=== PATIENT | female | born 1935 | race Caucasian/White ===

== ENCOUNTER → 2018-03-27 11:00 | Outpatient (CLI) | payer MEDICARE, BC, SELFPAY | PROVIDERS: PCP Family Medicine; Visit Provider Orthopaedic Surgery | DX: M19.012 Primary osteoarthritis, left shoulder (principal); M25.512 Pain in left shoulder; M75.02 Adhesive capsulitis of left shoulder | CPT/HCPCS: 20610; 99214; J1040 ==

== ENCOUNTER 2018-05-13 09:26 | Day surgery (SDC) | payer MEDICARE, BC, SELFPAY ==
--- NOTE | 2018-05-10 12:30 | W.PIPPEYE ---
History of Present Illness Chief Complaint: Severe progressive decreased vision, right eye Narrative: Patient is an 83-year-old lady who presented with complaints of severely diminished visual acuity in both eyes over the past 4-5 months at both distance and near. She notes that I can't see nothing. On examination she was noted to have very dense 3-4+ yellow brunescent nuclear cataracts with 1-2+ pseudoexfoliation and poorly dilating pupils. Visual acuity measured best corrected 20/100 right eye, 20/80 left eye. The option of cataract surgery was offered to the patient and she wished to proceed. PENDING SALE TO [facility] Family History Mother Myocardial infarct COPD (chronic obstructive pulmonary disease) Alcohol abuse Father Myocardial infarct Smoker Alcohol abuse Sister Diabetes Osteoporosis Arthritis Myocardial infarct Sister Myocardial infarct Brother Alcohol abuse Lung cancer Brother Myocardial infarct Other Hyperlipidemia Social History adopted: No foster care: No housing: house lives independently: Yes number of children: 6 current occupational status: retired pets and animals: No other: support from [address] [place] [address] over hernandez, Son Raul [place]en[place] Smoking/Tobacco Use Status: Never alcohol intake: former year quit: 1986 substance use type: does not use seatbelt use: 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 water heater temp set < 120 deg: Yes working smoke detector in home: Yes fire extinguisher in home: Yes Surgical History H/O breast biopsy (Acute ~09/25/03) H/O foot surgery (Acute) H/O left breast biopsy (Acute) H/O colonoscopy (Chronic ~08/21/00) H/O: hysterectomy (Chronic ~08/26/70) Appendectomy (~1952) Open Carpal Tunnel release (08/27/79) Pacemaker (08/10/98) Meds Home Medications Medication Instructions Recorded Confirmed Type cyanocobalamin (vitamin B-12) 1,000 mcg IJ Q month #1 vial 11/19/12 05/08/18 History aspirin 81 mg PO DAILY 04/01/13 05/08/18 History loperamide 2 mg PO DIRECTED PRN 04/01/13 05/08/18 History nedwtrhu-ykd-FA-lycopen-lutein 1 ea PO DAILY tab 07/07/14 05/08/18 History [Centrum Silver] cholecalciferol (vitamin D3) 1,000 unit PO DAILY #100 tab-cap 03/22/15 History [Vitamin D3] calcium carbonate [Calcium 500] 1,000 mg PO DAILY #180 tab 05/23/15 History Allergies Allergy/AdvReac Type Severity Reaction Status Date / Time phenytoin Allergy Unknown Skin Rash Verified 05/06/18 13:17 ibuprofen AdvReac Intermediate vomiting Verified 05/06/18 13:17 Exam OCULAR EXAM:: Visual acuity at distance: Best corrected right eye 20/100, left eye 20/80 Pupils: Pupils equal, round, and reactive without afferent pupillary defect, 3 mm undilated IOP: 16 right eye, 15 left eye Extraocular Motility: Normal Pertinent Slit Lamp Findings: Significant for pupils dilating only to 4 mm in each eye. 1-2+ pseudoexfoliation material is present on both anterior lens capsules. 3-4+ brunescent nuclear cataract is present in both eyes. Dilated Funduscopic Examination: Disc cupping is 0.6 OU with good color. The optic nerves have good perfusion and normal color. The retinal vasculature is normal without significant tortuosity or abnormality. The maculas are normal in appearance with normal contour and foveal reflex appropriate for age. The peripheral retina and vitreous are normal. Of note, the view of the posterior pole is limited by the presence of dense cataracts. BRIGHTNESS ACUITY TESTING (BAT):: Off: Right eye 20/100 Low: 20/200 Medium: 20/200 High: 20/200 Assessment and Plan (1) Nuclear sclerotic cataract of right eye: Current visit: No Status: Acute Assessment: Visually significant cataract, right eye, dense, with poorly dilating pupils due to pseudoexfoliation Plan: Cataract extraction with intraocular lens implantation, right eye (2) Mature cataract: Current visit: No Status: Acute Assessment: Visually significant cataract, right eye with poorly dilating pupils due to pseudoexfoliation Plan: Cataract extraction with intraocular lens implantation, right eye (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 The plan is to use capsular staining techniques (Vision Blue), a pupil expansion device (Malyugin Ring), dispersive and cohesive viscoelastics, and possibly nucleus splitters to reduce zonular trauma during nuclear fragmentation. Consideration will also be give to using a 3-piece IOL for added capsulozonular support. Note: NOTE:: The details of the planned surgery, including the risks, indications,limitations,expectations,outcome and possible complications were explained to the patient. The patient understands the complications including, but not limited to: infection, hemorrhage, posterior dislocation of the lens or nuclear fragments which may require the intervention of a vitreoretinal surgeon, possible loss of the eye, or from anesthetic complications. The patient has been made aware of the option of not having surgery, that vision following surgery may not be equal to that prior to surgery, and that the planned surgery may not achieve the intended results. Following this discussion, which the patient appeared to understand, the patient wishes to proceed with cataract surgery with lens implantation of the affected eye to improve and maximize vision.
--- NOTE | 2018-05-10 12:34 | POEE_ITS ---
History of Present Illness Chief Complaint: Severe progressive decreased vision, right eye Narrative: Patient is an 83-year-old lady who presented with complaints of severely diminished visual acuity in both eyes over the past 4-5 months at both distance and near. She notes that I can't see nothing. On examination she was noted to have very dense 3-4+ yellow brunescent nuclear cataracts with 1-2+ pseudoexfoliation and poorly dilating pupils. Visual acuity measured best corrected 20/100 right eye, 20/80 left eye. The option of cataract surgery was offered to the patient and she wished to proceed. [facility] Family History Mother Myocardial infarct COPD (chronic obstructive pulmonary disease) Alcohol abuse Father Myocardial infarct Smoker Alcohol abuse Sister Diabetes Osteoporosis Arthritis Myocardial infarct Sister Myocardial infarct Brother Alcohol abuse Lung cancer Brother Myocardial infarct Other Hyperlipidemia Social History adopted: No foster care: No housing: house lives independently: Yes number of children: 6 current occupational status: retired pets and animals: No other: support from [address] [place] [address] over hernandez, Son Raul [place] Smoking/Tobacco Use Status: Never alcohol intake: former year quit: 1986 substance use type: does not use seatbelt use: always drive 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 water heater temp set < 120 deg: Yes working smoke detector in home: Yes fire extinguisher in home: Yes Surgical History H/O breast biopsy (Acute ~09/25/03) H/O foot surgery (Acute) H/O left breast biopsy (Acute) H/O colonoscopy (Chronic ~08/21/00) H/O: hysterectomy (Chronic ~08/26/70) Appendectomy (~1952) Open Carpal Tunnel release (08/27/79) Pacemaker (08/10/98) Meds Home Medications Medication Instructions Recorded Confirmed Type cyanocobalamin (vitamin B-12) 1,000 mcg IJ Q month #1 vial 11/19/12 05/08/18 History aspirin 81 mg PO DAILY 04/01/13 05/08/18 History loperamide 2 mg PO DIRECTED PRN 04/01/13 05/08/18 History cfsccmvo-fwq-PM-lycopen-lutein 1 ea PO DAILY tab 07/07/14 05/08/18 History [Centrum Silver] cholecalciferol (vitamin D3) 1,000 unit PO DAILY #100 tab-cap 03/22/15 History [Vitamin D3] calcium carbonate [Calcium 500] 1,000 mg PO DAILY #180 tab 05/23/15 History Allergies Allergy/AdvReac Type Severity Reaction Status Date / Time phenytoin Allergy Unknown Skin Rash Verified 05/06/18 13:17 ibuprofen AdvReac Intermediate vomiting Verified 05/06/18 13:17 Exam OCULAR EXAM:: Visual acuity at distance: Best corrected right eye 20/100, left eye 20/80 Pupils: Pupils equal, round, and reactive without afferent pupillary defect, 3 mm undilated IOP: 16 right eye, 15 left eye Extraocular Motility: Normal Pertinent Slit Lamp Findings: Significant for pupils dilating only to 4 mm in each eye. 1-2+ pseudoexfoliation material is present on both anterior lens capsules. 3-4+ brunescent nuclear cataract is present in both eyes. Dilated Funduscopic Examination: Disc cupping is 0.6 OU with good color. The optic nerves have good perfusion and normal color. The retinal vasculature is normal without significant tortuosity or abnormality. The maculas are normal in appearance with normal contour and foveal reflex appropriate for age. The peripheral retina and vitreous are normal. Of note, the view of the posterior pole is limited by the presence of dense cataracts. BRIGHTNESS ACUITY TESTING (BAT):: Off: Right eye 20/100 Low: 20/200 Medium: 20/200 High: 20/200 Assessment and Plan (1) Nuclear sclerotic cataract of right eye: Current visit: No Status: Acute Assessment: Visually significant cataract, right eye, dense, with poorly dilating pupils due to pseudoexfoliation Plan: Cataract extraction with intraocular lens implantation, right eye (2) Mature cataract: Current visit: No Status: Acute Assessment: Visually significant cataract, right eye with poorly dilating pupils due to pseudoexfoliation Plan: Cataract extraction with intraocular lens implantation, right eye (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 The plan is to use capsular staining techniques (Vision Blue), a pupil expansion device (Malyugin Ring), dispersive and cohesive viscoelastics, and possibly nucleus splitters to reduce zonular trauma during nuclear fragmentation. Consideration will also be give to using a 3-piece IOL for added capsulozonular support. Note: NOTE:: The details of the planned surgery, including the risks, indications, limitations,expectations,outcome and possible complications were explained to the patient. The patient understands the complications including, but not limited to: infection, hemorrhage, posterior dislocation of the lens or nuclear fragments which may require the intervention of a vitreoretinal surgeon, possible loss of the eye, or from anesthetic complications. The patient has been made aware of the option of not having surgery, that vision following surgery may not be equal to that prior to surgery, and that the planned surgery may not achieve the intended results. Following this discussion, which the patient appeared to understand, the patient wishes to proceed with cataract surgery with lens implantation of the affected eye to improve and maximize vision.
[2018-05-13 10:13] VITALS: BP 138/90; PULSE 80; RESP 16; TEMP 37.4; O2SAT 99
[2018-05-13] MEDS: Lidocaine 1% Pres-Free 5 ML VIAL (11:45)
[2018-05-13] MEDS: Balanced Salt Soln.-PLUS 500 ML BAG (11:45)
[2018-05-13] MEDS: Lidocaine 2% Jelly 6 ML SYR (11:45)
[2018-05-13] MEDS: Duovisc Viscoelastic System EACH 1 EACH (11:45)
[2018-05-13] MEDS: Povidone-Iodine Ophth 30 ML BTL (11:51)
[2018-05-13] MEDS: Trypan Blue 0.06% 0.5 ML SYR (11:52)
--- NOTE | 2018-05-13 12:29 | W.PM.DSUDISC ---
Discharge Plan Discharge Details Reason For Visit: CATARACT OD Attending Provider: Vadim Dominguez Primary Care Provider: Brandon Siddiqui Home Meds and New Rx's Prescriptions: No Action amlodipine 10 mg tablet 10 mg PO DAILY Qty: 90 RF: 3 cyanocobalamin (vitamin B-12) 1,000 MCG/1 ML solution 1,000 mcg IJ Q month Qty: 1 RF: 0 jdsvjbxr-gvn-GU-lycopen-lutein [Centrum Silver] 1 EACH tablet 1 ea PO DAILY RF: 0 cholecalciferol (vitamin D3) [Vitamin D3] 1,000 UNIT capsule 1,000 unit PO DAILY Qty: 100 RF: 6 calcium carbonate [Calcium 500] 500 MG tablet 1,000 mg PO DAILY Qty: 180 RF: 3 levothyroxine [Synthroid] 300 MCG tablet 300 mcg PO DAILY 90 Days Qty: 90 RF: 3 celecoxib 100 MG capsule 100 mg PO DAILY Qty: 30 RF: 3 quetiapine [Seroquel] 25 MG tablet 25 mg PO HS Qty: 30 RF: 6 atenolol 100 MG tablet 100 mg PO BID Qty: 60 RF: 11 hydrochlorothiazide 25 MG tablet 25 mg PO DAILY Qty: 30 RF: 11 aspirin 81 MG tablet,delayed release (DR/EC) 81 mg PO DAILY RF: 0 loperamide 2 MG capsule 2 mg PO DIRECTED PRNRF: 0 Discharge Instructions Stand Alone Forms: Post-op Topical Cataract, Otf Staples (DSU) DS: Diagnosis Discharge Diagnosis (1) Nuclear sclerotic cataract of right eye: Status: Resolved (2) Mature cataract: Status: Resolved (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
--- NOTE | 2018-05-13 12:31 | W.PM.OP ---
Date of service: 05/13/18 Time of Service: 12:31 Operative Note Date of procedure: 05/13/18 Pre-op diagnosis: Mature cataract, poor red reflex, small pupil, PXF, right eye Procedure: Cataract extraction using phacoemulsification with intraocular lens implantation, right eye, using capsular staining with Vision Blue and pupillary dilation with Malyugin Ring Surgeon: Vadim Dominguez Anesthesia: MAC (with local sub-tenon's anesthetic injection) Pathology: none sent Complications: None Patient was transported to: same day Patient's condition: stable Implants: [employer] / [employer] Tecnis [id number] Indications: Progressive visual loss due to advanced cataract, right eye, with pseudoexfoliation, poorly dilating pupil, and poor red reflex Findings: Moderate zonular laxity Procedure Description: CATARACT SURGERY OPERATIVE REPORT PREOPERATIVE DIAGNOSIS: 1. Dense nuclear cataract with pseudoexfoliation, right eye 2. Poor red reflex secondary to #1 3. Poorly dilating pupil POSTOPERATIVE DIAGNOSIS: Same OPERATION: Cataract extraction using phacoemulsification with posterior chamber intraocular lens implant, right eye. Capsular staining with Vision Blue Pupillary dilation with Malyugin Ring IOL: IOL Culture Manager/Model: [employer] / FREYA Tecnis [id number] IOL Power: +25.00 diopters IOL Serial Number: [id number] Optic Diameter: 6.0mm Haptic/Overall Diameter: 13.0mm PHACO INFO: Last Bellabeaturion Vision System with OZil and Active Fluidics Cumulative Dispersed Energy (CDE): 21.47 seconds SURGEON: Vadim Dominguez MD, GONZALO ANESTHESIA: Monitored Anesthesia Care (MAC), with local sub-tenon's anesthetic infiltration COMPLICATIONS: None SPECIMENS: None INDICATIONS FOR PROCEDURE: The patient is an 83-year-old lady with history of pseudoexfoliation who presented with complaints of diminished visual acuity in both eyes at both distance and near. She was noted to have a dense nuclear cataract in both eyes with pseudoexfoliation and poorly dilating pupil. Visual acuity measured 20/200 right eye. The option of cataract surgery was offered to the patient and she wished to proceed. PROCEDURE: The correct surgical eye was identified and marked as the right eye and the pupil was dilated in the preoperative area using mydriatics, cycloplegics, and NSAIDS (except in aspirin allergic patients). The dilated pupil size was 4.0mm. Oral sedation was administered in the form of an Imprimis MKO Melt (midazolam 3mg/ketamine 25mg/ondansetron 2mg). The patient was brought to the operating room where cardiopulmonary monitoring was instituted and surgical time-out was performed, confirming the correct operative eye and IOL power. Topical anesthesia was administered and ophthalmic povidone-iodine 5% was instilled into the conjunctival fornices. Lidocaine gel was applied to the cornea and the amber-ocular area was prepped with Betadine 10% solution and draped in the usual sterile fashion for intraocular surgery. Steri-strips were used to cover the lashes and lid margins and an adhesive eye drape was placed. Care was taken to isolate the lashes and lid margins under the Steri-strips and adhesive eye drape. A lid speculum was placed between the lids of the operative eye and the Enrike-Cristino operating microscope was maneuvered into position. Jose Angel scissors were then used to make a conjunctival buttonhole approximately 6mm posterior to the limbus in the inferonasal quadrant. Blunt dissection was carried out to expose bare sclera, and a blunt-tipped sub-tenon?s anesthesia cannula was introduced and passed posteriorly along the globe where non-preserved plain lidocaine was injected into posterior sub-Tenon?s space. A sideport knife was used to make a paracentesis port at the 7:00 position. Air was injected into the anterior chamber, followed by Vision Blue, which was painted over the anterior capsule and then irrigated out with BSS. The anterior chamber was filled with Viscoat. A 2.4mm keratome knife was used to create a half-thickness groove at the limbus and then to construct a three-plane near-clear corneal tunnel extending 2.0mm into clear cornea at the 10:00 position. A 6.25 mm Malyugin Ring was inserted into the eye and engaged using a Kuglen hook. A flap was raised on the anterior capsule and capsulorhexis forceps were used to complete a continuous curvilinear capsulorhexis of 5.5mm. The capsule was noted to be very thin with moderate zonular laxity and capsular wrinkling. Balanced salt solution was then used to perform extensive, but careful cortical cleaving hydrodissection and nuclear hydrodelineation until the lens could be freely rotated within the capsular bag. The lens nucleus was then disassembled and removed within the capsular bag and iris plane using phacoemulsification. Additional Viscoat was injected intermittently to protect the corneal endothelium. Residual cortical material was then carefully removed using the 45-degree angled silicone I/A tip with 0.3mm port. The posterior capsule was carefully polished to remove as much residual lens epithelial cells as safely possible. There was some residual fine cortical material in the subincisional area which could not be safely removed. The capsular bag was then inflated and the anterior chamber deepened with Provisc. The lens implant described above was inserted into the capsular bag using the OptoNova Mor[place] Injector. A Kuglen hook was used to dial the IOL into position. The Malyugin Ring was then removed in the reverse order of its insertion. Residual viscoelastic was then removed first from posterior to the IOL, then from the anterior chamber using the I/A handpiece. The lens implant was noted to center nicely within the capsular bag. The incisions were stromally hydrated, and the anterior chamber was reformed using BSS. Then 0.4cc of moxifloxacin 1.5mg/ml were injected into the capsular bag and anterior chamber. The incisions were checked with a Weck spear and found to be secure. Several drops of ophthalmic povidone-iodine 5% were then applied to the eye followed by two drops of Imprimis combination moxifloxacin/dexamethasone solution. The drapes were removed and a clear plastic protective eye shield was placed over the eye. The patient was then returned to Same Day Surgery in stable condition.
--- NOTE | 2018-05-13 12:36 | ROE_ITS ---
Date of service: 05/13/18 Time of Service: 12:31 Operative Note Date of procedure: 05/13/18 Pre-op diagnosis: Mature cataract, poor red reflex, small pupil, PXF, right eye Procedure: Cataract extraction using phacoemulsification with intraocular lens implantation, right eye, using capsular staining with Vision Blue and pupillary dilation with Malyugin Ring Surgeon: Vadim Dominguez Anesthesia: MAC (with local sub-tenon's anesthetic injection) Pathology: none sent Complications: None Patient was transported to: same day Patient's condition: stable Implants: [employer] / [employer] Tecnis [id number] Indications: Progressive visual loss due to advanced cataract, right eye, with pseudoexfoliation, poorly dilating pupil, and poor red reflex Findings: Moderate zonular laxity Procedure Description: CATARACT SURGERY OPERATIVE REPORT PREOPERATIVE DIAGNOSIS: 1. Dense nuclear cataract with pseudoexfoliation, right eye 2. Poor red reflex secondary to #1 3. Poorly dilating pupil POSTOPERATIVE DIAGNOSIS: Same OPERATION: Cataract extraction using phacoemulsification with posterior chamber intraocular lens implant, right eye. 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 She was noted to have a dense nuclear cataract in both eyes with pseudoexfoliation and poorly dilating pupil. Visual acuity measured 20/200 right eye. The option of cataract surgery was offered to the patient and she wished to proceed. PROCEDURE: The correct surgical eye was identified and marked as the right eye and the pupil was dilated in the preoperative area using mydriatics, cycloplegics, and NSAIDS (except in aspirin allergic patients). The dilated pupil size was 4.0mm. Oral sedation was administered in the form of an Imprimis MKO Melt (midazolam 3mg/ketamine 25mg/ondansetron 2mg). The patient was brought to the operating room where cardiopulmonary monitoring was instituted and surgical time-out was performed, confirming the correct operative eye and IOL power. Topical anesthesia was administered and ophthalmic povidone-iodine 5% was instilled into the conjunctival fornices. Lidocaine gel was applied to the cornea and the amber-ocular area was prepped with Betadine 10% solution and draped in the usual sterile fashion for intraocular surgery. Steri-strips were used to cover the lashes and lid margins and an adhesive eye drape was placed. Care was taken to isolate the lashes and lid margins under the Steri-strips and adhesive eye drape. A lid speculum was placed between the lids of the operative eye and the Enrike-Cristino operating microscope was maneuvered into position. Jose Angel scissors were then used to make a conjunctival buttonhole approximately 6mm posterior to the limbus in the inferonasal quadrant. Blunt dissection was carried out to expose bare sclera, and a blunt-tipped sub-tenon? s anesthesia cannula was introduced and passed posteriorly along the globe where non-preserved plain lidocaine was injected into posterior sub-Tenon?s space. A sideport knife was used to make a paracentesis port at the 7:00 position. Air was injected into the anterior chamber, followed by Vision Blue, which was painted over the anterior capsule and then irrigated out with BSS. The anterior chamber was filled with Viscoat. A 2.4mm keratome knife was used to create a half-thickness groove at the limbus and then to construct a three- plane near-clear corneal tunnel extending 2.0mm into clear cornea at the 10:00 position. A 6.25 mm Malyugin Ring was inserted into the eye and engaged using a Kuglen hook. A flap was raised on the anterior capsule and capsulorhexis forceps were used to complete a continuous curvilinear capsulorhexis of 5.5mm. The capsule was noted to be very thin with moderate zonular laxity and capsular wrinkling. Balanced salt solution was then used to perform extensive, but careful cortical cleaving hydrodissection and nuclear hydrodelineation until the lens could be freely rotated within the capsular bag. The lens nucleus was then disassembled and removed within the capsular bag and iris plane using phacoemulsification. Additional Viscoat was injected intermittently to protect the corneal endothelium. Residual cortical material was then carefully removed using the 45 -degree angled silicone I/A tip with 0.3mm port. The posterior capsule was carefully polished to remove as much residual lens epithelial cells as safely possible. There was some residual fine cortical material in the subincisional area which could not be safely removed. The capsular bag was then inflated and the anterior chamber deepened with Provisc. The lens implant described above was inserted into the capsular bag using the [employer] [place] Injector. A Kuglen hook was used to dial the IOL into position. The Malyugin Ring was then removed in the reverse order of its insertion. Residual viscoelastic was then removed first from posterior to the IOL, then from the anterior chamber using the I/A handpiece. The lens implant was noted to center nicely within the capsular bag. The incisions were stromally hydrated , and the anterior chamber was reformed using BSS. Then 0.4cc of moxifloxacin 1.5mg/ml were injected into the capsular bag and anterior chamber. The incisions were checked with a Weck spear and found to be secure. Several drops of ophthalmic povidone-iodine 5% were then applied to the eye followed by two drops of Imprimis combination moxifloxacin/dexamethasone solution. The drapes were removed and a clear plastic protective eye shield was placed over the eye. The patient was then returned to Same Day Surgery in stable condition.
[2018-05-13 13:00] VITALS: BP 119/57; PULSE 67; RESP 18; TEMP 36; O2SAT 94
== END 2018-05-13 13:09 | disposition home or self-care (01) ==
LOC: SUR 09:27
PROVIDERS: PCP Family Medicine; Visit Provider Ophthalmology
PROC: (CPT 66982; principal; 2018-05-13 12:30)
DX: H25.11 Age-related nuclear cataract, right eye (principal); H35.89 Other specified retinal disorders; H57.09 Other anomalies of pupillary function; H26.8 Other specified cataract; I10 Essential (primary) hypertension
CPT/HCPCS: 66982; V2632

== ENCOUNTER 2018-05-27 09:34 | Day surgery (SDC) | payer MEDICARE, BC, SELFPAY ==
--- NOTE | 2018-05-25 10:20 | W.PIPPEYE ---
History of Present Illness Chief Complaint: Progressive decreased vision, left eye Narrative: Patient is an 83-year-old lady who presented in February with complaints of progressive decreased vision in both eyes at both distance and near. She noted that she can't see nothing. She was noted to have dense bilateral nuclear cataracts with pseudoexfoliation and poorly dilating pupils with visual acuity of 20/200 right eye, 20/100 left eye. She underwent complex cataract surgery in the right eye on 05/13/2018, requiring the use of pupillary expansion device, capsular staining techniques, and dispersive viscoelastic for corneal protection. Postoperatively she has regained uncorrected visual acuity of 20/50 in the right eye, correctable to 20/30. She now presents for cataract surgery in the left eye. NOTE: The Chief Complaint, HPI, Past Medical History, Past Surgical History, Family History, Social History, Medications, and complete Ophthalmic Exam with detailed Assessment and Plan have already been documented in the patient's outpatient ophthalmic record and are not covered again in detail here. Meds Home Medications Medication Instructions Recorded Confirmed Type cyanocobalamin (vitamin B-12) 1,000 mcg IJ Q month #1 vial 11/19/12 05/13/18 History aspirin 81 mg PO DAILY 04/01/13 05/13/18 History loperamide 2 mg PO DIRECTED PRN 04/01/13 05/13/18 History mubefeqt-ejj-JO-lycopen-lutein 1 ea PO DAILY tab 07/07/14 05/13/18 History [Centrum Silver] cholecalciferol (vitamin D3) 1,000 unit PO DAILY #100 tab-cap 03/22/15 05/13/18 History [Vitamin D3] calcium carbonate [Calcium 500] 1,000 mg PO DAILY #180 tab 05/23/15 05/13/18 History celecoxib 100 mg PO DAILY #30 cap 10/22/17 05/13/18 Rx levothyroxine [Synthroid] 300 mcg PO DAILY 90 Days #90 10/22/17 05/13/18 Rx tab-cap quetiapine [Seroquel] 25 mg PO HS #30 tab 04/04/18 05/13/18 Rx atenolol 100 mg PO BID #60 tab-cap 04/09/18 05/13/18 Rx hydrochlorothiazide 25 mg PO DAILY #30 tab-cap 04/09/18 05/13/18 Rx amlodipine 10 mg tablet 10 mg PO DAILY #90 tab 05/06/18 05/13/18 Rx Allergies Allergy/AdvReac Type Severity Reaction Status Date / Time phenytoin Allergy Unknown Skin Rash Verified 05/13/18 09:52 ibuprofen AdvReac Intermediate vomiting Verified 05/13/18 09:52 Exam OCULAR EXAM:: Visual acuity at distance: Corrected to 20/30 right eye, 20/80 left eye. Pupils: Pupils are 3 mm, reactive, and equal with no afferent pupillary defect. IOP: 16 OD 15 OS Extraocular Motility: Normal Pertinent Slit Lamp Findings: Significant for pupils dilating only to 4 mm OU. Well-positioned PCIOL OD with clear posterior capsule. Left eye shows a dense 3-4+ yellow brunescent cataract with 1-2+ pseudoexfoliation on the lens capsule. The red reflex is poor. Dilated Funduscopic Examination: Disc cupping is 0.6 OU with good color. The optic nerves have good perfusion and normal color. The retinal vasculature is normal without significant tortuosity or abnormality. The maculas are normal in appearance with normal contour and foveal reflex appropriate for age. The peripheral retina and vitreous are normal. BRIGHTNESS ACUITY TESTING (BAT):: Off left eye 20/80 Low: 20/200 Medium: 20/200 High: 20/400 Assessment and Plan (1) Nuclear sclerotic cataract of left eye: Current visit: No Status: Acute Assessment: Visually significant cataract, left eye. Plan: Cataract extraction with intraocular lens implantation, left eye. The increased difficulty of cataract surgery and the increased risk of possible intra and post-operative complications in patients with pseudoexfoliation syndrome was discussed with the patient, especially with an advanced cataract such as this. The plan is to use capsular staining techniques (Vision Blue), a pupil expansion device (Malyugin Ring), dispersive and cohesive viscoelastics, and possibly nucleus splitters to reduce zonular trauma during nuclear fragmentation. Consideration will also be give to using a 3-piece IOL for added capsulozonular support. (2) Mature cataract: Current visit: No Status: Acute Assessment: Visually significant cataract, left eye. Plan: Cataract extraction with intraocular lens implantation, left eye The increased difficulty of cataract surgery and the increased risk of possible intra and post-operative complications in patients with pseudoexfoliation syndrome was discussed with the patient, especially with an advanced cataract such as this. The plan is to use capsular staining techniques (Vision Blue), a pupil expansion device (Malyugin Ring), dispersive and cohesive viscoelastics, and possibly nucleus splitters to reduce zonular trauma during nuclear fragmentation. Consideration will also be give to using a 3-piece IOL for added capsulozonular support. Note: NOTE:: The details of the planned surgery, including the risks, indications,limitations,expectations,outcome and possible complications were explained to the patient. The patient understands the complications including, but not limited to: infection, hemorrhage, posterior dislocation of the lens or nuclear fragments which may require the intervention of a vitreoretinal surgeon, possible loss of the eye, or from anesthetic complications. The patient has been made aware of the option of not having surgery, that vision following surgery may not be equal to that prior to surgery, and that the planned surgery may not achieve the intended results. Following this discussion, which the patient appeared to understand, the patient wishes to proceed with cataract surgery with lens implantation of the affected eye to improve and maximize vision.
--- NOTE | 2018-05-25 10:29 | POEE_ITS ---
History of Present Illness Chief Complaint: Progressive decreased vision, left eye Narrative: Patient is an 83-year-old lady who presented in February with complaints of progressive decreased vision in both eyes at both distance and near. She noted that she can't see nothing. She was noted to have dense bilateral nuclear cataracts with pseudoexfoliation and poorly dilating pupils with visual acuity of 20/200 right eye, 20/100 left eye. She underwent complex cataract surgery in the right eye on 05/13/2018, requiring the use of pupillary expansion device, capsular staining techniques, and dispersive viscoelastic for corneal protection. Postoperatively she has regained uncorrected visual acuity of 20/ 50 in the right eye, correctable to 20/30. She now presents for cataract surgery in the left eye. NOTE: The Chief Complaint, HPI, Past Medical History, Past Surgical History, Family History, Social History, Medications, and complete Ophthalmic Exam with detailed Assessment and Plan have already been documented in the patient's outpatient ophthalmic record and are not covered again in detail here. Meds Home Medications Medication Instructions Recorded Confirmed Type cyanocobalamin (vitamin B-12) 1,000 mcg IJ Q month #1 vial 11/19/12 05/13/18 History aspirin 81 mg PO DAILY 04/01/13 05/13/18 History loperamide 2 mg PO DIRECTED PRN 04/01/13 05/13/18 History idttunet-skl-OZ-lycopen-lutein 1 ea PO DAILY tab 07/07/14 05/13/18 History [Centrum Silver] cholecalciferol (vitamin D3) 1,000 unit PO DAILY #100 tab-cap 03/22/15 05/13/18 History [Vitamin D3] calcium carbonate [Calcium 500] 1,000 mg PO DAILY #180 tab 05/23/15 05/13/18 History celecoxib 100 mg PO DAILY #30 cap 10/22/17 05/13/18 Rx levothyroxine [Synthroid] 300 mcg PO DAILY 90 Days #90 10/22/17 05/13/18 Rx tab-cap quetiapine [Seroquel] 25 mg PO HS #30 tab 04/04/18 05/13/18 Rx atenolol 100 mg PO BID #60 tab-cap 04/09/18 05/13/18 Rx hydrochlorothiazide 25 mg PO DAILY #30 tab-cap 04/09/18 05/13/18 Rx amlodipine 10 mg tablet 10 mg PO DAILY #90 tab 05/06/18 05/13/18 Rx Allergies Allergy/AdvReac Type Severity Reaction Status Date / Time phenytoin Allergy Unknown Skin Rash Verified 05/13/18 09:52 ibuprofen AdvReac Intermediate vomiting Verified 05/13/18 09:52 Exam OCULAR EXAM:: Visual acuity at distance: Corrected to 20/30 right eye, 20/80 left eye. Pupils: Pupils are 3 mm, reactive, and equal with no afferent pupillary defect. IOP: 16 OD 15 OS Extraocular Motility: Normal Pertinent Slit Lamp Findings: Significant for pupils dilating only to 4 mm OU. Well-positioned PCIOL OD with clear posterior capsule. Left eye shows a dense 3 -4+ yellow brunescent cataract with 1-2+ pseudoexfoliation on the lens capsule. The red reflex is poor. Dilated Funduscopic Examination: Disc cupping is 0.6 OU with good color. The optic nerves have good perfusion and normal color. The retinal vasculature is normal without significant tortuosity or abnormality. The maculas are normal in appearance with normal contour and foveal reflex appropriate for age. The peripheral retina and vitreous are normal. BRIGHTNESS ACUITY TESTING (BAT):: Off left eye 20/80 Low: 20/200 Medium: 20/200 High: 20/400 Assessment and Plan (1) Nuclear sclerotic cataract of left eye: Current visit: No Status: Acute Assessment: Visually significant cataract, left eye. Plan: Cataract extraction with intraocular lens implantation, left eye. The increased difficulty of cataract surgery and the increased risk of possible intra and post-operative complications in patients with pseudoexfoliation syndrome was discussed with the patient, especially with an advanced cataract such as this. The plan is to use capsular staining techniques (Vision Blue), a pupil expansion device (Malyugin Ring), dispersive and cohesive viscoelastics, and possibly nucleus splitters to reduce zonular trauma during nuclear fragmentation. Consideration will also be give to using a 3-piece IOL for added capsulozonular support. (2) Mature cataract: Current visit: No Status: Acute Assessment: Visually significant cataract, left eye. Plan: Cataract extraction with intraocular lens implantation, left eye The increased difficulty of cataract surgery and the increased risk of possible intra and post-operative complications in patients with pseudoexfoliation syndrome was discussed with the patient, especially with an advanced cataract such as this. The plan is to use capsular staining techniques (Vision Blue), a pupil expansion device (Malyugin Ring), dispersive and cohesive viscoelastics, and possibly nucleus splitters to reduce zonular trauma during nuclear fragmentation. Consideration will also be give to using a 3-piece IOL for added capsulozonular support. Note: NOTE:: The details of the planned surgery, including the risks, indications, limitations,expectations,outcome and possible complications were explained to the patient. The patient understands the complications including, but not limited to: infection, hemorrhage, posterior dislocation of the lens or nuclear fragments which may require the intervention of a vitreoretinal surgeon, possible loss of the eye, or from anesthetic complications. The patient has been made aware of the option of not having surgery, that vision following surgery may not be equal to that prior to surgery, and that the planned surgery may not achieve the intended results. Following this discussion, which the patient appeared to understand, the patient wishes to proceed with cataract surgery with lens implantation of the affected eye to improve and maximize vision.
[2018-05-27 10:08] VITALS: BP 147/89; PULSE 81; RESP 16; TEMP 36.3; O2SAT 97
[2018-05-27] MEDS: Lidocaine 2% Jelly 6 ML SYR (11:45)
[2018-05-27] MEDS: Povidone-Iodine Ophth 30 ML BTL ×2 (11:45→12:30)
[2018-05-27] MEDS: Balanced Salt Soln.-PLUS 500 ML BAG (11:49)
[2018-05-27] MEDS: Lidocaine 1% Pres-Free 5 ML VIAL (11:51)
[2018-05-27] MEDS: Trypan Blue 0.06% 0.5 ML SYR (11:51)
[2018-05-27] MEDS: Duovisc Viscoelastic System EACH 1 EACH (11:53)
--- NOTE | 2018-05-27 12:39 | W.PM.DSUDISC ---
Discharge Plan Discharge Details Attending Provider: Vadim Dominguez Primary Care Provider: Brandon Siddiqui Home Meds and New Rx's Prescriptions: No Action amlodipine 10 mg tablet 10 mg PO DAILY Qty: 90 RF: 3 cyanocobalamin (vitamin B-12) 1,000 MCG/1 ML solution 1,000 mcg IJ Q month Qty: 1 RF: 0 umzbdihk-iik-NE-lycopen-lutein [Centrum Silver] 1 EACH tablet 1 ea PO DAILY RF: 0 cholecalciferol (vitamin D3) [Vitamin D3] 1,000 UNIT capsule 1,000 unit PO DAILY Qty: 100 RF: 6 calcium carbonate [Calcium 500] 500 MG tablet 1,000 mg PO DAILY Qty: 180 RF: 3 levothyroxine [Synthroid] 300 MCG tablet 300 mcg PO DAILY 90 Days Qty: 90 RF: 3 celecoxib 100 MG capsule 100 mg PO DAILY Qty: 30 RF: 3 quetiapine [Seroquel] 25 MG tablet 25 mg PO HS Qty: 30 RF: 6 atenolol 100 MG tablet 100 mg PO BID Qty: 60 RF: 11 hydrochlorothiazide 25 MG tablet 25 mg PO DAILY Qty: 30 RF: 11 aspirin 81 MG tablet,delayed release (DR/EC) 81 mg PO DAILY RF: 0 loperamide 2 MG capsule 2 mg PO DIRECTED PRNRF: 0 Discharge Instructions Stand Alone Forms: Post-op Topical Cataract, Otf Staples (DSU) DS: Diagnosis Discharge Diagnosis (1) Nuclear sclerotic cataract of left eye: Status: Resolved (2) Mature cataract: Status: Resolved
--- NOTE | 2018-05-27 12:41 | W.PM.OP ---
Date of service: 05/27/18 Time of Service: 12:41 Operative Note DATE OF PROCEDURE: 05/27/18 PRE-OP DIAGNOSIS: Cataract with poor red reflex and poorly dilating pupil, left eye PROCEDURE: Cataract extraction using phacoemulsification with intraocular lens implant, left eye, with pupillary dilation using Malyugin Ring and capsular staining with Vision Blue SURGEON: Vadim Dominguez ANESTHESIA: MAC (with sub-tenon's local infiltration) ESTIMATED BLOOD LOSS: 0 PATHOLOGY: none sent COMPLICATIONS: None Patient was transported to: same day Patient's condition: stable Implants: [employer] / [employer] Tecnis [id number] Indications: Progressive decreased vision due to cataract, left eye Findings: Dense cataract, loose zonules, poor red reflex, poorly dilating pupil, left eye Procedure Description: [] CATARACT SURGERY OPERATIVE REPORT PREOPERATIVE DIAGNOSIS: 1. Dense nuclear cataract, left eye, symptomatic 2. Poorly dilating pupil, left eye 3. Poor red reflex, left eye 4. Pseudoexfoliation, left eye POSTOPERATIVE DIAGNOSIS: Same OPERATION: 1. Cataract extraction using phacoemulsification with posterior chamber intraocular lens implant, left eye. 2. Pupillary dilation and iris stabilization using Malyugin Ring 3. 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 She was noted to have dense bilateral nuclear cataracts with pseudoexfoliation, poorly dilating pupils, poor red reflex. She has already undergone cataract surgery right eye on 05/13/2018. Postoperatively she has regained visual acuity of 20/30 in the right eye, improved from 20/200. She now presents for cataract surgery of the left eye. PROCEDURE: The correct surgical eye was identified and marked as the leftt eye and the pupil was dilated in the preoperative area using mydriatics, cycloplegics, and NSAIDS (except in aspirin allergic patients). The dilated pupil size was 4.0 mm. Oral sedation was administered in the form of an Imprimis MKO Melt (midazolam 3mg/ketamine 25mg/ondansetron 2mg). The patient was brought to the operating room where cardiopulmonary monitoring was instituted and surgical time-out was performed, confirming the correct operative eye and IOL power. Topical anesthesia was administered and ophthalmic povidone-iodine 5% was instilled into the conjunctival fornices. Lidocaine gel was applied to the cornea and the amber-ocular area was prepped with Betadine 10% solution and draped in the usual sterile fashion for intraocular surgery. Steri-strips were used to cover the lashes and lid margins and an adhesive eye drape was placed. Care was taken to isolate the lashes and lid margins under the Steri-strips and adhesive eye drape. A lid speculum was placed between the lids of the operative eye and the Enrike-Cristino operating microscope was maneuvered into position. Jose Angel scissors were then used to make a conjunctival buttonhole approximately 6mm posterior to the limbus in the inferonasal quadrant. Blunt dissection was carried out to expose bare sclera, and a blunt-tipped sub-tenon?s anesthesia cannula was introduced and passed posteriorly along the globe where non-preserved plain lidocaine was injected into posterior sub-Tenon?s space. A sideport knife was used to make a paracentesis port at the 12:00 position and air was injected into anterior chamber, followed by Vision Blue, which was painted over the anterior capsule and then irrigated out with BSS. The anterior chamber was then filled with Last Viscoat. . A 2.4mm keratome knife was used to create a half-thickness groove at the limbus and then to construct a three-plane near-clear corneal tunnel extending 2.0mm into clear cornea at the 3:00 position. A 6.25 mm Malyugin Ring was then inserted into the pupillary space and engaged with the Kuglen hook. A flap was raised on the anterior capsule and capsulorhexis forceps were used to complete a continuous curvilinear capsulorhexis of 5.0 mm. The zonules were noted to be moderate to severely lax. Balanced salt solution was then used to perform cortical cleaving hydrodissection and nuclear hydrodelineation until the lens could be freely rotated within the capsular bag. The lens nucleus was then disassembled and removed within the capsular bag and iris plane using phacoemulsification. Nucleus splitters were used to aid in cracking the dense nucleus. Additional Viscoat was injected to help protect the corneal endothelium during nuclear fragment removal. Residual cortical material was carefully removed using the 45-degree angled silicone I/A tip with 0.3mm port. The posterior capsule was carefully polished to remove as much residual lens epithelial cells as safely possible. The capsular bag was then inflated and the anterior chamber deepened with Provisc. The lens implant described above was inserted into the capsular bag using the Clink [place] Injector. A Kuglen hook was used to dial the IOL into position. The Malyugin Ring was removed in the reverse order of its insertion. Residual viscoelastic was then removed first from posterior to the IOL, then from the anterior chamber using the I/A handpiece. The lens implant was noted to center nicely within the capsular bag. The incisions were stromally hydrated, and the anterior chamber was reformed using BSS. Then 0.4cc of moxifloxacin 1.5mg/ml were injected into the capsular bag and anterior chamber. The incisions were checked with a Weck spear and found to be secure. Several drops of ophthalmic povidone-iodine 5% were then applied to the eye followed by two drops of Imprimis combination moxifloxacin/dexamethasone solution. The drapes were removed and a clear plastic protective eye shield was placed over the eye. The patient was then returned to Same Day Surgery in stable condition.
--- NOTE | 2018-05-27 12:49 | ROE_ITS ---
Date of service: 05/27/18 Time of Service: 12:41 Operative Note DATE OF PROCEDURE: 05/27/18 PRE-OP DIAGNOSIS: Cataract with poor red reflex and poorly dilating pupil, left eye PROCEDURE: Cataract extraction using phacoemulsification with intraocular lens implant, left eye, with pupillary dilation using Malyugin Ring and capsular staining with Vision Blue SURGEON: Vadim Dominguez ANESTHESIA: MAC (with sub-tenon's local infiltration) ESTIMATED BLOOD LOSS: 0 PATHOLOGY: none sent COMPLICATIONS: None Patient was transported to: same day Patient's condition: stable Implants: [employer] / [employer] Tecnis [id number] Indications: Progressive decreased vision due to cataract, left eye Findings: Dense cataract, loose zonules, poor red reflex, poorly dilating pupil , left eye Procedure Description: [] CATARACT SURGERY OPERATIVE REPORT PREOPERATIVE DIAGNOSIS: 1. Dense nuclear cataract, left eye, symptomatic 2. Poorly dilating pupil, left eye 3. Poor red reflex, left eye 4. Pseudoexfoliation, left eye POSTOPERATIVE DIAGNOSIS: Same OPERATION: 1. Cataract extraction using phacoemulsification with posterior chamber intraocular lens implant, left eye. 2. Pupillary dilation and iris stabilization using Malyugin Ring 3. 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 She was noted to have dense bilateral nuclear cataracts with pseudoexfoliation, poorly dilating pupils, poor red reflex. She has already undergone cataract surgery right eye on 05/13/2018. Postoperatively she has regained visual acuity of 20/30 in the right eye, improved from 20/200. She now presents for cataract surgery of the left eye. PROCEDURE: The correct surgical eye was identified and marked as the leftt eye and the pupil was dilated in the preoperative area using mydriatics, cycloplegics, and NSAIDS (except in aspirin allergic patients). The dilated pupil size was 4.0 mm. Oral sedation was administered in the form of an Imprimis MKO Melt (midazolam 3mg/ketamine 25mg/ondansetron 2mg). The patient was brought to the operating room where cardiopulmonary monitoring was instituted and surgical time-out was performed, confirming the correct operative eye and IOL power. Topical anesthesia was administered and ophthalmic povidone-iodine 5% was instilled into the conjunctival fornices. Lidocaine gel was applied to the cornea and the amber-ocular area was prepped with Betadine 10% solution and draped in the usual sterile fashion for intraocular surgery. Steri-strips were used to cover the lashes and lid margins and an adhesive eye drape was placed. Care was taken to isolate the lashes and lid margins under the Steri-strips and adhesive eye drape. A lid speculum was placed between the lids of the operative eye and the Enrike-Cristino operating microscope was maneuvered into position. Jose Angel scissors were then used to make a conjunctival buttonhole approximately 6mm posterior to the limbus in the inferonasal quadrant. Blunt dissection was carried out to expose bare sclera, and a blunt-tipped sub-tenon? s anesthesia cannula was introduced and passed posteriorly along the globe where non-preserved plain lidocaine was injected into posterior sub-Tenon?s space. A sideport knife was used to make a paracentesis port at the 12:00 position and air was injected into anterior chamber, followed by Vision Blue, which was painted over the anterior capsule and then irrigated out with BSS. The anterior chamber was then filled with Last Viscoat. . A 2.4mm keratome knife was used to create a half-thickness groove at the limbus and then to construct a three-plane near-clear corneal tunnel extending 2.0mm into clear cornea at the 3:00 position. A 6.25 mm Malyugin Ring was then inserted into the pupillary space and engaged with the Kuglen hook. A flap was raised on the anterior capsule and capsulorhexis forceps were used to complete a continuous curvilinear capsulorhexis of 5.0 mm. The zonules were noted to be moderate to severely lax. Balanced salt solution was then used to perform cortical cleaving hydrodissection and nuclear hydrodelineation until the lens could be freely rotated within the capsular bag. The lens nucleus was then disassembled and removed within the capsular bag and iris plane using phacoemulsification. Nucleus splitters were used to aid in cracking the dense nucleus. Additional Viscoat was injected to help protect the corneal endothelium during nuclear fragment removal. Residual cortical material was carefully removed using the 45 -degree angled silicone I/A tip with 0.3mm port. The posterior capsule was carefully polished to remove as much residual lens epithelial cells as safely possible. The capsular bag was then inflated and the anterior chamber deepened with Provisc. The lens implant described above was inserted into the capsular bag using the Catapulter [place] Injector. A Kuglen hook was used to dial the IOL into position. The Malyugin Ring was removed in the reverse order of its insertion. Residual viscoelastic was then removed first from posterior to the IOL, then from the anterior chamber using the I/A handpiece. The lens implant was noted to center nicely within the capsular bag. The incisions were stromally hydrated , and the anterior chamber was reformed using BSS. Then 0.4cc of moxifloxacin 1.5mg/ml were injected into the capsular bag and anterior chamber. The incisions were checked with a Weck spear and found to be secure. Several drops of ophthalmic povidone-iodine 5% were then applied to the eye followed by two drops of Imprimis combination moxifloxacin/dexamethasone solution. The drapes were removed and a clear plastic protective eye shield was placed over the eye. The patient was then returned to Same Day Surgery in stable condition.
[2018-05-27 12:55] VITALS: BP 113/57; PULSE 61; RESP 16; TEMP 35.9; O2SAT 99
== END 2018-05-27 13:10 | disposition home or self-care (01) ==
LOC: SUR 09:34
PROVIDERS: PCP Family Medicine; Visit Provider Ophthalmology
PROC: (CPT 66982; principal; 2018-05-27 12:45)
DX: H25.12 Age-related nuclear cataract, left eye (principal); H35.89 Other specified retinal disorders; H57.09 Other anomalies of pupillary function; H26.8 Other specified cataract; H27.8 Other specified disorders of lens; I10 Essential (primary) hypertension; Z98.41 Cataract extraction status, right eye; Z96.1 Presence of intraocular lens
CPT/HCPCS: 66982; V2632

== ENCOUNTER 2020-01-30 19:07 | Outpatient (REF) | payer MEDICARE, BC, SELFPAY ==
[2020-01-30 19:30] LABS: Anion Gap 5.1 mmol/L (3-11); BUN 18 mg/dL (7-18); CO2 28.9 mmol/L (21.0-32.0); CREATININE 1.05 mg/dL (0.55-1.02); Calcium 9.2 mg/dL (8.5-10.1); Chloride 104 mmol/L (98-107); Estimated GFR 50.05 (mL/min/1.73m2); Glucose 94 mg/dL (74-106); Potassium 5.3 mmol/L (3.5-5.1); Sodium 138 mmol/L (136-145); TSH (W/Ref FT4) 6.21 uIU/mL (0.36-3.74)
== END 2020-01-30 19:27 ==
LOC: LBN 19:07
PROVIDERS: PCP Family Medicine; Visit Provider Family Medicine
DX: E78.5 Hyperlipidemia, unspecified (principal); E03.9 Hypothyroidism, unspecified
CPT/HCPCS: 80048; 84439; 84443

== ENCOUNTER 2021-04-04 10:02 | Emergency (ER) | payer MEDICARE, BC, SELFPAY ==
[2021-04-04] VITALS (39 sets, daily range): BP systolic 134–164; BP diastolic 61–106; PULSE 60–140; RESP 11–22; TEMP 36.6; O2SAT 95–100
--- NOTE | 2021-04-04 10:30 | RT.EKG_ITS ---
APPROVED REPORT Exam: Resting ECG Reason for Exam: ab pain Patient Location: E HR:122 bpm ECG Measurements Heart Rate 122 AXIS NE 165 P -1 QRSd 91 QRS -27 QT 310 T 25 QTc 442 Conclusion Sinus tachycardia...rate> 99 Consider left ventricular hypertrophy...(R aVL+S V3) >2.20mV sinus tachycardia at 122, borderline left axis, no STEMI, non-diagnostic EKG
--- NOTE | 2021-04-04 11:00 | DI.CT_ITS ---
Exam(s) CT ABDOMEN PELVIS W EXAM: CT ABDOMEN PELVIS W CLINICAL HISTORY: lower abdominal pain, diarrhea. TECHNIQUE: Imaging Protocol: Axial computed tomography images with coronal and sagittal reformatted images were created and reviewed CONTRAST MATERIAL: Intravenous: Omnipaque 350 Contrast volume:100 ml Oral: no COMPARISON: CR CHEST 2 VIEWS PA,LAT from 02/01/2017 CR CHEST 2 VIEWS PA,LAT from 02/01/2017 FINDINGS: The exam is mildly limited by patient motion in the mid portion of the exam. ABDOMEN: Lung Bases: Normal where visualized. Cardiomegaly. Pacemaker leads. Liver: Normal density. No measurable mass. Gallbladder and biliary tract: No radiodense calculus or dilation. Pancreas: Normal density, no abnormal calcifications or inflammatory process. Spleen: Normal. Kidneys: Normal size, contour and axis. No radiodense stones or obstructive uropathy. No masses seen. Adrenal glands: No masses seen. Abdominal Aorta: Abdominal portion non-dilated. Atherosclerotic changes. PELVIS: Bladder: Wall thickening versus under distention.. No calculi.No focal mass. Bowel: No obstruction or bowel wall thickening. Normal quantity of stool. . Peritoneal cavity: No ascites, collection or mesenteric inflammatory response. No free air. Bones: Degenerative changes. No compression fractures. Reproductive organs: Within normal limits. Lymph nodes: Unremarkable. Impression: bladder wall thickening which could indicate cystitis. No abnormal bowel distention or inflammatory change. RADIATION DOSE DELIVERED: 1,081.75mGy.cm Total DLP DATA REPOSITORY: All CT scans at this facility are submitted to the National Radiology Data Registry (NRDR) Dose Index Registry (DIR) with the [employer] ([employer]). RADIATION OPTIMIZATION: All CT scans at this facility use at least one of these dose optimization te chniques: automated exposure control; mA and/or kV adjustment per patient size (includes targeted exa ms where dose is matched to clinical indication); or iterative reconstruction.
--- NOTE | 2021-04-04 11:00 | DI.US_ITS ---
Exam(s) US LOWER EXTREMITY VENOUS LT EXAM: US LOWER EXTREMITY VENOUS LT CLINICAL HISTORY: pain, redness. TECHNIQUE: Lower extremity venous ultrasound performed using grayscale, color-flow, and spectral Do ppler analysis. COMPARISON: No exams were available for comparison FINDINGS: The common femoral, femoral and popliteal veins demonstrate normal compressibility, augmentation, and color Doppler. The posterior tibial veins are patent. No saphenous vein thrombosis or other superfi cial venous thrombosis is seen. A 4.4 x 1.3 x 2.1 centimeter Campos's cyst is seen. A 2.1 centimeter reactive groin lymph node is noted. IMPRESSION: Small Campos's cyst. No evidence of DVT. DATA REPOSITORY:
--- NOTE | 2021-04-04 11:03 | ED.GENADUL_ITS ---
Discharge Plan Disposition Patient Disposition: HOME Condition: Stable Discharge Details Clinical Impression: Cellulitis, Chronic diarrhea, UTI (urinary tract infection) Primary Care Provider: Brandon Siddiqui ED Provider: Alexandria Church Home Meds and New Rx's Prescriptions: New cephalexin 500 mg capsule 500 mg PO Q6H Qty: 40 RF: 0 Continued atenolol 100 mg tablet 100 mg PO BID Qty: 60 RF: 11 quetiapine [Seroquel] 25 mg tablet 25 mg PO HS Qty: 30 RF: 11 levothyroxine [Synthroid] 300 mcg tablet 300 mcg PO DAILY Qty: 30 RF: 11 amlodipine 10 mg tablet 10 mg PO DAILY Qty: 30 RF: 11 Centrum Silver 1 EACH tablet 1 ea PO DAILY RF: 0 cholecalciferol (vitamin D3) [Vitamin D3] 1,000 UNIT capsule 1,000 unit PO DAILY Qty: 100 RF: 6 calcium carbonate [Calcium 500] 500 MG tablet 1,000 mg PO DAILY Qty: 180 RF: 3 (DME) BD Luer-Clarisse Syringe 3 mL 25 gauge x 1 syringe See Rx Instructions .ROUTE .MEDSUPPLY Qty: 4 RF: 3 cyanocobalamin (vitamin B-12) 1,000 mcg/mL solution 1,000 mcg IM QMONTH Qty: 4 RF: 3 aspirin 81 MG tablet,delayed release (DR/EC) 81 mg PO DAILY RF: 0 Discharge Instructions Instructions: Urinary Tract Infection in Women (ED), Cellulitis (ED), Chronic Diarrhea (ED) Additional Instructions: Please return immediately to the emergency department if you develop any new or worsening symptoms, if your condition does not improve as expected, or if you become otherwise concerned. It is extremely important that you call soon as possible to make an appointment to be seen in follow-up for this visit by your primary care doctor. Referrals: Brandon Siddiqui DO [Primary Care Provider] - Discharge Data Discharge Date/Time-TO BE ENTERED AT DEPARTURE: 04/04/21 18:45 Medical Decision Making Michelle Whitaker is an 86 y/o woman with h/o chronic diarrhea reporting worsening diarrhea over the past few weeks, also with mild lower abdominal discomfort. On exam pt is very well and non-toxic appearing. Mild TTP across the lower abd, worse in LLQ, no peritoneal signs. Also with mild edema and erythema of the left lower leg. HR initially irregular and between 90-130, reverted to paced rhythm in the 80s spontaneously after arrival.Concern for colitis, diverticulitis, non- specific chronic diarrhea, UTI, DVT, cellulitis, other. Given Pt reporting some overall malaise, will send trop, doubt ACS. Exam/hx at this time not c/w pulmonary embolism, sepsis, acute aortic pathology, abscess. Plan for IV placement, telemetry, screening labs, UA, CT a/p. Will monitor and reasess. Labs reviewed. WBC 6.7, AG 9.3, Cr 1.0. UA show WBCs. CT shows bladder thickening, possible cystitis. Upon further discussion with Pt, she reports increased urinary frequency and urgency over past week or so. Exam/hx at this time not c/w pyelonephritis. Pt not able to produce stool for stool studies. Initially considered admission given UTI/cellulitis, and discussed Pt with Hospitalist. No beds available. I did discuss transfer vs discharge with Pt. Pt states that she is feeling quite well and prefers to go home. Pt reports that while her appetite has decreased somehwat she feels that she is still able to eat and drink fluids without issue. Reports that she has been having no issue caring for herself at home. I discussed plan for d/c to home close outpt f/u with Pt's son over the phone, who is amenable to plan. At this time I do not feel that it is in the Pt's best interests to be transferred and hospitalized. Plan for keflex. I had a lengthy discussion with Patient regarding return to emergency department precautions, home care, and importance of outpatient follow-up. Pt verbalizes understanding of the plan and is amenable. Patient discharged to home with clear plan for outpatient follow-up. All questions were answered. Disposition decision was made weighing the risks and benefits of hospitalization versus outpatient treatment, the risk for further decompensation, and the patient's wishes. Medical Records Medical records reviewed: Yes I reviewed the patient's medical records. Imaging Data Radiologic Study: Attestation: I personally reviewed and interpreted this imaging study as follows: Radiologist's impression: EXAM: CT ABDOMEN PELVIS W CLINICAL HISTORY: lower abdominal pain, diarrhea. TECHNIQUE: Imaging Protocol: Axial computed tomography images with coronal and sagittal reformatted images were created and reviewed CONTRAST MATERIAL: Intravenous: Omnipaque 350 Contrast volume:100 ml Oral: no COMPARISON: CR CHEST 2 VIEWS PA,LAT from 02/01/2017 CR CHEST 2 VIEWS PA,LAT from 02/01/2017 FINDINGS: The exam is mildly limited by patient motion in the mid portion of the exam. ABDOMEN: Lung Bases: Normal where visualized. Cardiomegaly. Pacemaker leads. Liver: Normal density. No measurable mass. Gallbladder and biliary tract: No radiodense calculus or dilation. Pancreas: Normal density, no abnormal calcifications or inflammatory process. Spleen: Normal. Kidneys: Normal size, contour and axis. No radiodense stones or obstructive uropathy. No masses seen. Adrenal glands: No masses seen. Abdominal Aorta: Abdominal portion non-dilated. Atherosclerotic changes. PELVIS: Bladder: Wall thickening versus under distention.. No calculi.No focal mass. Bowel: No obstruction or bowel wall thickening. Normal quantity of stool. . Peritoneal cavity: No ascites, collection or mesenteric inflammatory response. No free air. Bones: Degenerative changes. No compression fractures. Reproductive organs: Within normal limits. Lymph nodes: Unremarkable. Impression: bladder wall thickening which could indicate cystitis. No abnormal bowel distention or inflammatory change. Lab Data Lab results reviewed: Yes I reviewed the patient's lab results. Labs: 04/04/21 15:26 Urine - Reflex from Ua Urine Culture - Final Gram Positive Olinda,Mixed Gram Negative [facility] Laboratory Tests Range/Units 04/04/21 04/04/21 04/04/21 11:10 11:10 11:10 WBC (4.4-10.8) 10^3/uL 6.70 RBC (3.93-5.22) 10^6/uL 3.90 L Hgb (11.2-15.7) g/dL 12.6 Hct (36.0-46.0) % 38.2 MCV (80-95) fL 97.9 H MCH (27.0-33.0) pg 32.3 MCHC (32.0-36.0) % 33.0 RDW (11.7-14.6) % 13.7 Plt Count (130-400) 10^3/uL 259 MPV (8.0-11.0) fL 10.1 Immature Gran % 0.1 Neutrophils % 68.3 Lymphocytes % 17.6 Monocytes % 11.0 Eosinophils % 2.7 Basophils % 0.3 Nucleated RBC % % 0 Absolute Neutrophils (1.2-6.7) 10^3/uL 4.57 Absolute Lymphocytes (1.2-3.4) 10^3/uL 1.18 L Absolute Monocytes (0.1-0.8) 10^3/uL 0.74 Absolute Eosinophils (0.0-0.7) 10^3/uL 0.18 Absolute Basophils (0.0-0.2) 10^3/uL 0.02 PT (9.3-11.0) sec 10.6 INR (0.9-1.1) 1.1 Sodium (136-145) mmol/L 141 Potassium (3.5-5.1) mmol/L 3.6 Chloride (98-107) mmol/L 105 Carbon Dioxide (21.0-32.0) mmol/L 26.7 Anion Gap (3-11) mmol/L 9.3 BUN (7-18) mg/dL 14 Creatinine (0.55-1.02) mg/dL 1.0 Estimated GFR/1.73 m2 (mL/min/1.73m2) 52.82 Glucose (74-106) mg/dL 105 Calcium (8.5-10.1) mg/dL 9.1 Total Bilirubin (0.2-1.0) mg/dL 0.6 AST (15-37) U/L 8 L ALT (14-59) U/L 12 L Alkaline Phosphatase (46-116) U/L 81 Total Protein (6.4-8.2) g/dL 7.1 Albumin (3.4-5.0) g/dL 3.1 L Lipase (73-393) U/L 88 TSH (0.36-3.74) uIU/mL 11.84 H Free T4 (0.76-1.46) ng/dL 1.22 Urine Color (Yellow) Urine Clarity (Clear) Urine pH (5-8) Ur Specific [place] (1.005-1.025) Urine Protein (Negative) mg/dL Urine Ketones (Negative) mg/dL Urine Blood (Negative) Urine Nitrite (Negative) Urine Bilirubin (Negative) Urine Urobilinogen (Up TO 0.2) EU/dL Ur Leukocyte Esterase (Negative) Urine RBC (0-2) HPF Urine WBC (0-5) HPF Ur Epithelial Cells (Negative) HPF Urine Crystals (Negative) HPF Urine Bacteria (Negative) HPF Urine Casts (Negative) LPF Urine Mucus (Negative) Ur Culture Indicated? Urine Glucose (Negative) mg/dL Range/Units 04/04/21 15:26 WBC (4.4-10.8) 10^3/uL RBC (3.93-5.22) 10^6/uL Hgb (11.2-15.7) g/dL Hct (36.0-46.0) % MCV (80-95) fL MCH (27.0-33.0) pg MCHC (32.0-36.0) % RDW (11.7-14.6) % Plt Count (130-400) 10^3/uL MPV (8.0-11.0) fL Immature Gran % Neutrophils % Lymphocytes % Monocytes % Eosinophils % Basophils % Nucleated RBC % % Absolute Neutrophils (1.2-6.7) 10^3/uL Absolute Lymphocytes (1.2-3.4) 10^3/uL Absolute Monocytes (0.1-0.8) 10^3/uL Absolute Eosinophils (0.0-0.7) 10^3/uL Absolute Basophils (0.0-0.2) 10^3/uL PT (9.3-11.0) sec INR (0.9-1.1) Sodium (136-145) mmol/L Potassium (3.5-5.1) mmol/L Chloride (98-107) mmol/L Carbon Dioxide (21.0-32.0) mmol/L Anion Gap (3-11) mmol/L BUN (7-18) mg/dL Creatinine (0.55-1.02) mg/dL Estimated GFR/1.73 m2 (mL/min/1.73m2) Glucose (74-106) mg/dL Calcium (8.5-10.1) mg/dL Total Bilirubin (0.2-1.0) mg/dL AST (15-37) U/L ALT (14-59) U/L Alkaline Phosphatase (46-116) U/L Total Protein (6.4-8.2) g/dL Albumin (3.4-5.0) g/dL Lipase (73-393) U/L TSH (0.36-3.74) uIU/mL Free T4 (0.76-1.46) ng/dL Urine Color (Yellow) Yellow Urine Clarity (Clear) Sl Cloudy Urine pH (5-8) 6.0 Ur Specific [place] (1.005-1.025) 1.010 Urine Protein (Negative) mg/dL Trace H Urine Ketones (Negative) mg/dL Trace H Urine Blood (Negative) Negative Urine Nitrite (Negative) Negative Urine Bilirubin (Negative) Negative Urine Urobilinogen (Up TO 0.2) EU/dL 0.2 Ur Leukocyte Esterase (Negative) Small H Urine RBC (0-2) HPF 0-2 Urine WBC (0-5) HPF 10-20 H Ur Epithelial Cells (Negative) HPF Few Urine Crystals (Negative) HPF Negative Urine Bacteria (Negative) HPF Moderate Urine Casts (Negative) LPF 0-2 Hyaline Urine Mucus (Negative) Negative Ur Culture Indicated? Yes Urine Glucose (Negative) mg/dL Negative ECG Data Attestation: I personally reviewed and interpreted this ECG (s) as follows: Interpretation: EKG shows sinus tachycardia at 122, borderline left axis, no STEMI, non-diagnostic EKG HPI General Mode of arrival: ambulatory . Date/Time Provider Initiated Documentation: 04/04/21 10:47 . Limitations to Documentation: no limitations . Information obtained by: patient, RN notes reviewed and old records reviewed . HPI Narrative: Michelle Whitaker is an 86 y/o woman with history of hypertension, hypothyroidism, hyperlipidemia, gluten intolerance, irritable bowel syndrome, s/p pacemaker presenting to emergency department with chief complaint diarrhea. Patient reports that she has a long history of chronic diarrhea, particularly with any gluten intake, however diarrhea seems more frequent than usual over the past few weeks. Patient reports that she has also had some intermittent vomiting, last episode of vomiting was 1 week ago. Patient reports that she has had to severely restrict her diet to mild/clear foods such as Jell-O to prevent diarrhea over the past 2 weeks. She denies any black or bloody stool/emesis. She reports lower abdominal pain worse on left. Denies any other pain, dysuria, SOB, cough, fever, vomiting, numbness, weakness. Pt reports chronic skin changes to the LLE, now with new redness over the past 2-3 days, reports mild swelling in the LLE. Denies other rash. Related Data Home Medications Medication Instructions Recorded Confirmed aspirin 81 mg PO DAILY 04/01/13 04/14/21 Centrum Silver 1 ea PO DAILY tab 07/07/14 04/14/21 cholecalciferol (vitamin D3) 1,000 unit PO DAILY #100 tab-cap 03/22/15 04/14/21 [Vitamin D3] calcium carbonate [Calcium 500] 1,000 mg PO DAILY #180 tab 05/23/15 04/14/21 amlodipine 10 mg tablet 10 mg PO DAILY #30 tab 01/10/21 04/14/21 atenolol 100 mg tablet 100 mg PO BID #60 tab-cap 01/10/21 04/14/21 levothyroxine 300 mcg tablet 300 mcg PO DAILY #30 tab-cap 01/10/21 04/14/21 quetiapine 25 mg tablet 25 mg PO HS #30 tab 01/10/21 04/14/21 cyanocobalamin (vitamin B-12) 1,000 mcg IM QMONTH #4 ml 01/17/21 04/14/21 1,000 mcg/mL injection solution syringe with needle 3 mL 25 gauge #4 ea 01/17/21 04/14/21 x 1 cephalexin 500 mg PO Q6H #40 cap 04/04/21 04/14/21 Previous Rx's Medication Instructions Recorded amlodipine 10 mg tablet 10 mg PO DAILY #30 tab 01/10/21 atenolol 100 mg tablet 100 mg PO BID #60 tab-cap 01/10/21 levothyroxine 300 mcg tablet 300 mcg PO DAILY #30 tab-cap 01/10/21 quetiapine 25 mg tablet 25 mg PO HS #30 tab 01/10/21 cyanocobalamin (vitamin B-12) 1,000 mcg IM QMONTH #4 ml 01/17/21 1,000 mcg/mL injection solution syringe with needle 3 mL 25 gauge #4 ea 01/17/21 x 1 cephalexin 500 mg PO Q6H #40 cap 04/04/21 Allergies Allergy/AdvReac Type Severity Reaction Status Date / Time phenytoin Allergy Unknown Skin Rash Verified 04/14/21 14:04 ibuprofen AdvReac Intermediate vomiting Verified 04/14/21 14:04 General Stated Complaint: Abd Prob POONAM: 3 Review of Systems Narrative: Constitutional: denies fevers Eyes: denies eye pain ENT: denies ear pain, dental pain, sore throat Cardiovascular: denies chest pain Respiratory: denies SOB, cough GI: denies vomiting, reports abdominal pain, diarrhea : denies flank pain MSK: denies back pain, neck pain, arthralgias, myalgias Skin: reports redness left lower leg Neuro: denies headaches, numbness, weakness [facility] Medical History (Updated 04/04/21 @ 16:44 by Alexandria Church MD) Depressive disorder (08/26/81) & ANXIETY; SERTRALINE 06/2011; JENNA 10/10/2007 Mature cataract (05/13/18) Mature cataract (05/27/18) Nuclear sclerotic cataract of left eye (05/27/18) Nuclear sclerotic cataract of right eye (05/13/18) 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 Palafox, Podiatry 1993 H/O left breast biopsy H/O: hysterectomy (~08/26/70) History of cataract surgery (05/13/18) Open Carpal Tunnel release (08/27/79) bilateral [place] surg, [place] & [place] Pacemaker (08/10/98) [facility] [place] FOR RECURRENT SYNCOPE Replaced Dr. Forde 04/03/13 Family History Mother , (smoker), cause [place] at age 72. Myocardial infarct COPD (chronic obstructive pulmonary disease) Alcohol abuse Father , 52 Myocardial infarct Smoker Alcohol abuse Sister , age 80 Diabetes Osteoporosis Arthritis Myocardial infarct Sister , 63, angioplasty, dies of [place] Myocardial infarct Brother , 74, CABG age 58 of lung ca Alcohol abuse Lung cancer Brother , 52 Myocardial infarct Other Hyperlipidemia Social History Smoking/Tobacco Use Status: Never Smoking risk assessment performed?: Yes Alcohol Intake: former Year quit: 1986 Drug use: Never Substance use type: does not use Adopted: No Foster care: No Housing: house Number of Children: 6 Communication Needs: None current occupation: retired [employer] Pets and animals: No Current gender identity: female Other: support from 108 pen pals over country, Son Raul [place] What is your relationship status?: Panel score (0-1 are the most socially isolated patients): 0 What type of physical activity do you participate in: none Seatbelt use: always Drive intox or ride w/intox courier delivery driver: No Water heater temp set <120 deg: Yes Working smoke detector in home: Yes Fire extinguisher in home: Yes Do you feel safe at home: Yes Do you feel safe in your relationship?: Yes Exam Narrative Exam Narrative: Constitutional: well and [id number], pleasant, conversing normally HENT: head atraumatic/normocephalic/normal inspection, mucous membranes moist Eyes: conjunctiva normal, sclera normal, pupils 3mm b/l Neck: no stridor, normal ROM, trachea midline Chest: normal inspection Resp: normal work of breathing, LCTAB Cardio: normal rate, normal rhythm, no murmur appreciated GI: abdomen soft, mild TTP across lower abdomen, worse LLQ, no rebound, no guarding, non-distended Back: normal inspection, no rash Skin: warm, dry, normal color, no rash Neuro: alert, not altered, grossly non-focal, normal tone Ext: +1 edema left lower leg, chronic skin changes with surrounding erythema, warm to touch, not circumferential, no ulcerations, no petechiae, DP pulses intact and symmetric Psych: normal mood, normal affect, normal behavior Course Vital Signs Vital signs: Vital Signs Temperature 36.6 C 04/04/21 10:16 Pulse 128 H 04/04/21 10:16 Respiratory Rate 17 04/04/21 10:16 Blood Pressure 162/106 H 04/04/21 10:16 Pulse Oximetry 96 04/04/21 10:16 Temperature 36.6 C 04/04/21 10:16 Temperature Source Temporal Artery Scan 04/04/21 10:16 Pulse 128 H 04/04/21 10:16 Respiratory Rate 17 04/04/21 10:16 Respiratory Effort Non-Labored 04/04/21 10:20 Blood Pressure 162/106 H 04/04/21 10:16 Blood Pressure Position Sitting 04/04/21 10:16 Pulse Oximetry 96 04/04/21 10:16 Oxygen Delivery Method Room Air 04/04/21 10:16 Oxygen Flow Rate 0 04/04/21 10:16 Pain Level 8 04/04/21 10:16
[2021-04-04 11:21] LABS: Abs Immature Grans 0.01 10^3/uL (0.0-0.06); Absolute Basophil Count 0.02 10^3/uL (0.0-0.2); Absolute Eosinophil Count 0.18 10^3/uL (0.0-0.7); Absolute Lymphocyte Count 1.18 10^3/uL (1.2-3.4); Absolute Monocyte Count 0.74 10^3/uL (0.1-0.8); Absolute Neutrophil Count 4.57 10^3/uL (1.2-6.7); Basophils % 0.3; Eosinophils % 2.7; HCT 38.2 % (36.0-46.0); HGB 12.6 g/dL (11.2-15.7); Immature Grans % 0.1; Lymphocytes % 17.6; MCH 32.3 pg (27.0-33.0); MCV 97.9 fL (80-95); MPV 10.1 fL (8.0-11.0); Neutrophils % 68.3; Nucleated RBC 0 %; Platelet Count 259 10^3/uL (130-400); RDW 13.7 % (11.7-14.6); RDW-SD 49.7 fL
[2021-04-04 11:32] LABS: INR 1.1 (0.9-1.1); Prothrombin Time 10.6 sec (9.3-11.0)
[2021-04-04 11:58] LABS: ALT 12 U/L (14-59); AST 8 U/L (15-37); Albumin 3.1 g/dL (3.4-5.0); Alkaline Phosphatase 81 U/L (46-116); Anion Gap 9.3 mmol/L (3-11); BUN 14 mg/dL (7-18); Bilirubin, Total 0.6 mg/dL (0.2-1.0); CO2 26.7 mmol/L (21.0-32.0); Calcium 9.1 mg/dL (8.5-10.1); Chloride 105 mmol/L (98-107); Estimated GFR 52.82 (mL/min/1.73m2); Glucose 105 mg/dL (74-106); Lipase 88 U/L (73-393); Potassium 3.6 mmol/L (3.5-5.1); Sodium 141 mmol/L (136-145); TSH (W/Ref FT4) 11.84 uIU/mL (0.36-3.74); Total Protein 7.1 g/dL (6.4-8.2)
[2021-04-04 12:14] LABS: FREE T4 1.22 ng/dL (0.76-1.46)
[2021-04-04] MEDS: Omnipaque 350 MG/ML 100 ML BTL IJ (13:17)
[2021-04-04] MEDS: Normal Saline - Diluent 50 ML VIAL IV (13:17)
[2021-04-04] MEDS: Normal Saline 500 ML IV (15:07)
[2021-04-04 15:34] LABS: Bilirubin Negative (Negative); Blood Negative (Negative); Clarity Sl Cloudy (Clear); Glucose Negative (Negative); Ketones Trace mg/dL (Negative); Leukocyte Esterase Small (Negative); Nitrite Negative (Negative); Urobilinogen 0.2 EU/dL (Up TO 0.2)
[2021-04-04 15:53] LABS: Bacteria Moderate HPF (Negative); C & S Indicated? Yes; Casts 0-2 Hyaline LPF (Negative); Crystals Negative HPF (Negative); Epithelial Cells Few HPF (Negative); Mucus Negative (Negative); RBC 0-2 HPF (0-2)
[2021-04-04] MEDS: VANCOMYCIN/WATER (PEG) 1.5 GM/300 ML BAG IVPB (16:11)
[2021-04-04] MEDS: Cephalexin 500 MG CAP PO (16:50)
== END 2021-04-04 18:45 | disposition home or self-care (01) ==
PROVIDERS: Emergency Provider Student in an Organized Health Care Education/Training Program; PCP Family Medicine
DX: N39.0 Urinary tract infection, site not specified (principal); L03.116 Cellulitis of left lower limb; K52.9 Noninfective gastroenteritis and colitis, unspecified; R00.0 Tachycardia, unspecified; E03.9 Hypothyroidism, unspecified; R60.0 Localized edema; K90.41 Non-celiac gluten sensitivity
CPT/HCPCS: 36415; 80053; 83690; 93005; 96361; 96365; 96366; 99285; 74177; 81003; 81015; 84439; 84443; 85025; 85610; 87086; 93010; 93971; J3490

== ENCOUNTER → 2022-01-25 14:42 | Outpatient (BNVA) | payer MEDICARE, BC, SELFPAY | PROVIDERS: PCP Family Medicine; Referring Provider Family Medicine; Visit Provider Internal Medicine Cardiovascular Disease | DX: Z45.018 Encounter for adjustment and management of other part of cardiac pacemaker (principal); R09.89 Other specified symptoms and signs involving the circulatory and respiratory systems | CPT/HCPCS: 93280 ==

== ENCOUNTER 2022-03-27 11:23 | Outpatient (CLI) | payer MEDICARE, BC, SELFPAY ==
--- NOTE | 2022-03-27 11:19 | DI.RAD_ITS ---
Exam(s) XR KNEE RT 3V AP,LAT,DAVID EXAM: XR KNEE RT 3V AP,LAT,DAVID CLINICAL HISTORY: right knee pain TECHNIQUE: COMPARISON: CR XR KNEE LT 3V AP,LAT,DAVID from 03/27/2022 FINDINGS: Four views were obtained. There is moderate to severe narrowing of the lateral tibiofemoral cartilag inous joint space. Otherwise cartilaginous joint spaces appear well maintained. There are moderate marginal osteophytes at the lateral tibiofemoral joint and there is mild subchondral sclerosis of the adjacent bones. Minimal marginal osteophytes noted at medial tibiofemoral joint and patellofemoral joint. Small joint effusion appears to be present. IMPRESSION: DJD predominantly involving lateral tibiofemoral joint. RADIATION DOSE DELIVERED: Total DLP
--- NOTE | 2022-03-27 11:19 | DI.RAD_ITS ---
Exam(s) XR KNEE LT 3V AP,LAT,DAVID EXAM: XR KNEE LT 3V AP,LAT,DAVID CLINICAL HISTORY: left knee pain TECHNIQUE: COMPARISON: CR LEFT KNEE 3 VIEW COMPLETE from 02/01/2017 FINDINGS: Three views were obtained. There is severe loss of the cartilaginous joint space of the lateral tibi ofemoral joint. Medial tibiofemoral joint cartilaginous joint space appears fairly well maintained. There changes of chondrocalcinosis. There are sclerotic changes and scalloping of the lateral femor al condyle and lateral tibial plateau. Moderate marginal osteophytes are present involving all 3 louann nts of the knee. IMPRESSION: DJD predominantly involving lateral tibiofemoral joint RADIATION DOSE DELIVERED: Total DLP
== END 2022-03-27 11:24 | disposition home or self-care (01) ==
LOC: DIORS 11:24
PROVIDERS: PCP Family Medicine; Referring Provider Family Medicine; Visit Provider Physician Assistant
DX: M17.0 Bilateral primary osteoarthritis of knee (principal); M17.12 Unilateral primary osteoarthritis, left knee
CPT/HCPCS: 20610; 73562; 99214; J1040

== ENCOUNTER → 2022-06-19 13:43 | Outpatient (BNVA) | payer MEDICARE, BC, SELFPAY | PROVIDERS: PCP Family Medicine; Referring Provider Family Medicine; Visit Provider Student in an Organized Health Care Education/Training Program | DX: M17.12 Unilateral primary osteoarthritis, left knee (principal); M17.11 Unilateral primary osteoarthritis, right knee | CPT/HCPCS: 99214 ==

== ENCOUNTER 2022-07-06 04:37 | Outpatient (CLI) | payer MEDICARE, BC, SELFPAY ==
[2022-07-06 11:32] LABS: MCH 33.6 pg (27.0-33.0); MCHC 33.3 % (32.0-36.0); MCV 101 fL (80-95); Platelet Count 230 10^3/uL (130-400); RBC 3.87 10^6/uL (3.93-5.22); RDW 13.5 % (11.7-14.6); RDW-SD 50.4 fL; WBC 7.31 10^3/uL (4.4-10.8)
[2022-07-06 12:20] LABS: TSH 13.35 uIU/mL (0.36-3.74)
[2022-07-06 12:36] LABS: Anion Gap 9.8 mmol/L (3-11); BUN 21 mg/dL (7-18); CO2 27.2 mmol/L (21.0-32.0); CREATININE 0.9 mg/dL (0.55-1.02); Calcium 9.2 mg/dL (8.5-10.1); Chloride 103 mmol/L (98-107); Estimated GFR 62.65 (mL/min/1.73m2); Glucose 97 mg/dL (74-106); Sodium 140 mmol/L (136-145)
== END 2022-07-06 04:38 | disposition home or self-care (01) ==
LOC: LBO 04:37
PROVIDERS: PCP Family Medicine; Visit Provider Student in an Organized Health Care Education/Training Program
DX: F31.78 Bipolar disorder, in full remission, most recent episode mixed; M17.12 Unilateral primary osteoarthritis, left knee; Z01.818 Encounter for other preprocedural examination
CPT/HCPCS: 36415; 80048; 85027; 84443

== ENCOUNTER 2022-07-17 02:40 | Outpatient (CLI) | payer MEDICARE, BC, SELFPAY ==
[2022-07-17 12:32] LABS: Source Nasal/Nares
[2022-07-17 13:07] LABS: COVID-19 PCR Negative (Negative)
== END 2022-07-17 02:41 | disposition home or self-care (01) ==
LOC: LBO 02:41
PROVIDERS: PCP Family Medicine; Visit Provider Student in an Organized Health Care Education/Training Program
DX: Z20.822 Contact with and (suspected) exposure to COVID-19 (principal); Z01.818 Encounter for other preprocedural examination
CPT/HCPCS: 87635

== ENCOUNTER 2022-07-18 07:29 | Inpatient (IN) | payer MEDICARE, BC, SELFPAY ==
[2022-07-18] VITALS (24 sets, daily range): BP systolic 85–135; BP diastolic 38–83; PULSE 60–94; RESP 12–18; TEMP 35.6–36.6; O2SAT 92–99; BMI 33.0
--- NOTE | 2022-07-18 08:40 | ANES.PREOP_ITS ---
General Info Date of Service Date Performed: 07/18/22 Height: 5 ft 2 in Weight: 82 kg Body Mass Index (BMI): 33.0 Surgical Procedure: Operation Date: 07/18/22 13:25 Proposed Procedure Side Surgeon p Knee Total Arthroplasty,OrthAlign,Cemented PS Left Abe Richey MD Meds Allergies and Home Medications Allergies Allergy/AdvReac Type Severity Reaction Status Date / Time phenytoin Allergy Unknown Skin Rash Verified 07/17/22 11:13 ibuprofen AdvReac Intermediate vomiting Verified 07/17/22 11:13 Home Medication Medication Instructions Recorded aspirin 81 mg tablet,delayed 81 mg PO DAILY 04/01/13 release lvaxhpxt-uuv-aktip acid 0.4 1 ea PO DAILY 07/07/14 mg-lycopene 300 mcg-lutein 250 mcg tablet (Centrum Silver) cholecalciferol (vitamin D3) 25 1,000 unit PO DAILY #100 tab-caps 03/22/15 mcg (1,000 unit) capsule (Vitamin D3) calcium carbonate 500 mg calcium 1,000 mg PO DAILY #180 tabs 05/23/15 (1,250 mg) tablet (Calcium 500) quetiapine 25 mg tablet (Seroquel) 25 mg PO HS #30 tabs 01/02/22 amlodipine 10 mg tablet 10 mg PO DAILY #30 tabs 01/30/22 atenolol 100 mg tablet 100 mg PO BID #60 tab-caps 01/30/22 levothyroxine 300 mcg tablet 300 mcg PO DAILY #30 tab-caps 01/30/22 (Synthroid) cyanocobalamin (vitamin B-12) 1,000 mcg IM QMONTH #4 mL 06/05/22 1,000 mcg/mL injection solution syringe with needle 3 mL 25 gauge #4 ea 06/05/22 x 1 (BD Luer-Clarisse Syringe) bismuth subsalicylate 262 mg/15 mL 524 mg PO Q30-60M PRN 07/17/22 oral suspension (Pepto-Bismol) celecoxib 400 mg capsule 1 cap PO DAILY 07/17/22 loperamide 2 mg tablet (Imodium 2 mg PO QID PRN 07/17/22 A-D) Current Visit Medications: Current Medications Generic Name Dose Route Start Last Admin Trade Name Freq PRN Reason Stop Dose Admin Acetaminophen 1,000 mg 07/18/22 06:00 Acetaminophen 500 Mg Tab PO 07/18/22 16:00 PREOP FE Celecoxib 400 mg 07/18/22 06:00 Celecoxib 200 Mg Cap PO 07/18/22 16:00 PREOP FE Gabapentin 300 mg 07/18/22 06:00 Gabapentin 300 Mg Cap PO 07/18/22 16:00 PREOP FE Tranexamic Acid 1,000 mg/ 60 mls @ 360 mls/hr 07/18/22 06:00 Sodium Chloride IVPB 07/18/22 16:00 PREOP FE Ringer's Solution 1,000 mls @ 80 mls/hr 07/18/22 06:00 IV 08/16/22 23:59 INFUSION FE Cefazolin Sodium/Dextrose 2 gm in 50 mls @ 100 mls/hr 07/18/22 06:00 Ancef Duplex IVPB 07/18/22 16:00 PREOP FE IV Miscellaneous Supplies 1 each 07/18/22 06:00 Iv Access IV 08/16/22 23:59 DIRECTED FE Sodium Chloride 0 ml 07/18/22 06:00 Normal Saline Flush 10 Ml Syr IV 08/16/22 23:59 PRN PRN Sodium Chloride 0 ml 07/18/22 06:00 Normal Saline 10 Ml Vial IJ 08/16/22 23:59 DIRECTED PRN Sterile Water 0 ml 07/18/22 06:00 Water,Injection,Sterile 10 Ml Vial IJ 08/16/22 23:59 DIRECTED PRN PFSH Active Problems Active Problems: Problem Status Onset Code Primary osteoarthritis of left knee M17.12 Osteoarthritis of knees, bilateral M17.0 Cellulitis L03.90 Chronic diarrhea K52.9 UTI (urinary tract infection) N39.0 Depressive disorder 08/26/81 F32.9 Benign essential hypertension 08/26/83 I10 Chest pain 11/23/11 R07.9 Herpes zoster 11/23/11 B02.9 Knee pain 03/19/15 M25.569 Syncope and collapse 11/23/11 R55 Trigeminal herpes zoster 04/23/17 B02.22 Mature cataract 05/27/18 H26.9 Nuclear sclerotic cataract of left eye 05/27/18 H25.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.8 Mature cataract 05/13/18 H26.9 Nuclear sclerotic cataract of right eye 05/13/18 H25.11 Vitamin B deficiency 08/26/90 E53.9 Sleep disturbance, unspecified 11/23/11 G47.9 Osteopenia 05/11/15 M85.80 Nocturia more than twice per night 06/26/17 R35.1 Knee pain, left 07/05/15 M25.562 Hypothyroidism 05/26/87 E03.9 Hyperlipidemia 11/23/11 E78.5 Disability due to neurological disorder 11/23/11 R29.818 Hand joint pain 12/10/12 M25.549 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 Palafox, Podiatry 1993 H/O left breast biopsy H/O: hysterectomy (~08/26/70) History of cataract surgery (05/13/18) Open Carpal Tunnel release (08/27/79) bilateral CTS surg, [place], [place] & [place] Pacemaker (08/10/98) [facility]OPE Replaced Dr. Forde 04/03/13 Tobacco Smoking/Tobacco Use Status: Never Alcohol Alcohol Intake: former Year quit: 1986 Substance Use Substance use: Never Substance use type: does not use Vital Signs and Lab Results Vital Signs Most Recent Vital Signs in EMR: Temp Pulse Resp BP Pulse Ox 36.2 C L 70 16 126/67 98 07/18/22 10:26 07/18/22 10:26 07/18/22 10:26 07/18/22 10:26 07/18/22 10:26 Lab Results Blood Type / Crossmatch: No Data to Display Complete Blood Count: White Blood Count 7.31 10^3/uL (4.4-10.8) 07/06/22 11:18 Red Blood Count 3.87 10^6/uL (3.93-5.22) L 07/06/22 11:18 Hemoglobin 13.0 g/dL (11.2-15.7) 07/06/22 11:18 Hematocrit 39.0 % (36.0-46.0) 07/06/22 11:18 Platelet Count 230 10^3/uL (130-400) 07/06/22 11:18 Complete Metabolic Panel: Sodium 140 mmol/L (136-145) 07/06/22 11:18 Potassium 5.0 mmol/L (3.5-5.1) 07/06/22 11:18 Chloride 103 mmol/L (98-107) 07/06/22 11:18 Carbon Dioxide 27.2 mmol/L (21.0-32.0) 07/06/22 11:18 BUN 21 mg/dL (7-18) H 07/06/22 11:18 Creatinine 0.9 mg/dL (0.55-1.02) 07/06/22 11:18 Est GFR (CKD-EPI 2020) 62.65 (mL/min/1.73m2) 07/06/22 11:18 Calcium 9.2 mg/dL (8.5-10.1) 07/06/22 11:18 Glucose 97 mg/dL (74-106) 07/06/22 11:18 Liver Function Panel: No Data to Display Coagulation Panel: No Data to Display Cardiac Panel: No Data to Display Arterial Blood Gas: No Data to Display Venous Blood Gas: No Data to Display Pancreas Panel: No Data to Display Thyroid Panel: Thyroid Stimulating Hormone (TSH) 13.35 uIU/mL (0.36-3.74) H 07/06/22 11:18 Infectious Disease: Coronavirus (COVID-19)(PCR) Negative (Negative) 07/17/22 10:21 Coronavirus 2019 Source Nasal/Nares 07/18/22 10:16 Blood Cultures: No Data to Display Toxicology Panel: No Data to Display Imaging and Studies Imaging and Studies Study information below may be from another EMR and interpreted by another provider. Please see original notes in EMR for more complete details. EKG Summary: 03/2021: sinus tach, consider LVH. Anesthesia Assessment and Plan Anesthesia History Personal History: No History of Anesthesia Complications Family History: No Family History of Anesthesia Complications Exercise Tolerance Exercise Tolerance: Metabolic Equivalents<4 Cardiac & Pulmonary Exam Cardiac Exam: Normal S1/S2 Heart Sounds Pulmonary Exam: Clear Bilateral Breath Sounds Implantable Cardiac Device Does patient have a Pacemaker or an ICD?: Yes Device [employer] Operator:: [employer] Reason for Placement:: Syncope/ collapse Date of Last Device Interrogation:: 07/13/22 remotely [facility] 01/25/22 Airway Exam Known Difficult Airway: No Mallampati Class: 3 Mouth Opening: Narrow (< 3cm) Thyromental Distance: Greater than 3 cm Neck Range of Motion: Limited ROM Neck Circumference: Normal Teeth Condition: Generalized Poor Dentition ASA Classification ASA Score: ASA 3 Emergency Case?: No NPO Status NPO Status: NPO Clears >2 hours, Solids >8 hours Anesthesia Plan Resuscitation Status: Full Code Anesthesia Technique: Spinal Anesthesia Airway Planned: Natural Airway Pain Management: Surgeon and patient request nerve block Monitors Used: Standard Monitors Preoperative Comments:: 87 yo female for TKA. Sig PMHx: depression/bipolar, HTN, pacer (medtronic addr01 adapta, last checked 06/07/22), never smoker, hypothyroid (on replacment).
[2022-07-18 10:21] LABS: Source Nasal/Nares
[2022-07-18] MEDS: Gabapentin 300 MG CAP PO ×2 (10:38→21:30)
[2022-07-18] MEDS: Acetaminophen 500 MG TAB 1000 MG PO ×3 (10:38→20:03)
[2022-07-18] MEDS: Celecoxib 200 MG CAP 400 MG PO (10:38)
[2022-07-18] MEDS: Lactated Ringers 1,000 ML 80 ML IV ×2 (10:49→15:13)
--- NOTE | 2022-07-18 11:11 | W.ANESNERVE ---
Nerve Block Single Injection Procedure Date and Time Date Performed: 07/18/22 Procedure Start: 11:02 Location Where Procedure Performed Procedure Location: Day Surgery Unit Reason Performed: Postoperative Analgesia Requesting Provider: Abe Richey Timeout Performed Timeout Performed: Yes Monitoring Used ECG, Blood Pressure and SpO2 Sterility Sterility: Hand Hygiene, Surgical Cap, Surgical Mask, Sterile Gloves and Chlorhexidine Sedation Given During Procedure Sedation Given (Indicate Dose Given): No Sedation given Patient Mental Status Patient Mental Status: Awake Nerve Block 1st Nerve Block: Laterality: Left Block Type: Adductor Canal Needle / Catheter Used: 100mm SonoPlex II Local Anesthetic Bolus (Indicate Dose Given): Lidocaine used for local infiltration of skin, Injected in 3-5ml increments after negative blood aspiration and Bupivacaine 0.375% Dose:: 10 mL Additives (Indicate Dose Given): None Ultrasound: Sterile probe cover and gel used Ultrasound Image Saved?: Yes Nerve Stimulator: Not Used Paresthesia: None Procedure Tolerated: No Complications Procedure Outcome: Successful Performed By: Valentin Hernandez
[2022-07-18 11:25] LABS: COVID-19 PCR Negative (Negative)
[2022-07-18] MEDS: ceFAZolin 2 GM/50 ML BAG IVPB (11:46)
--- NOTE | 2022-07-18 13:57 | W.PM.OP ---
Date of service: 07/18/22 Time of Service: 13:58 Operative Note Operative Note DATE OF PROCEDURE: 07/18/22 PRE-OP DIAGNOSIS: Left Knee Arthritis with Valgus Deformity POST-OP DIAGNOSIS: same PROCEDURE: LEFT Total Knee Arthroplasty with Intraoperative Navigation SURGEON: Abe Richey [employer] COUNSELOR: Nai Ji ANESTHESIA TYPE: General LMA/ETT and Spinal Refer to Anesthesia Record ESTIMATED BLOOD LOSS: 200 PATHOLOGY: none sent COMPLICATIONS: None Patient was transported to: PACU Patient's condition: stable Implants: 1. Depuy Attune Posterior Stabilized Femoral Component, Size 4 2. Depuy Attune Rotating Platform Tibial Component, Size 4 3. Depuy Attune 4x8mm RP/PS Poly 4. Depuy Attune Patellar Component, Size 32 Indications: I have seen Michelle in clinic for symptoms of knee arthritis, confirmed with radiographic findings. She has exhausted nonoperative methods and was having significant limitations in daily function and desired better function and less pain. I discussed the technical details of a knee replacement. I explained the risks of the procedure to include, but not limited to, bleeding, infection, pain, stiffness, fracture, damage to nerves and vessels, damage to muscles and tendons, loosening, need for repeat procedure, blood clot and cardiopulmonary demise. Despite these risks, Della elected to proceed. Findings: There was significant signs of arthritis throughout the knee with notable deformity of the lateral femur and tibia. Procedure Description: Michelle was greeted in the preoperative holding area where the correct side was identified and marked. The consent was reviewed with the patient and signed. The history and physical was updated. All questions were answered. Preoperative mediacations were administered: Acetaminophen 1000mg, Celebrex 400mg, and Gabapentin 300mg. An adductor canal block was then administered by the anesthesia team in the PACU. Michelle was taken back to the operating room. A spinal anesthestic was then administered. The patient was placed into the supine position on the operating room table. A nonsterile tourniquet was placed high onto the leg but only used for cementing. Posts were placed for positioning during the procedure. All bony prominences were well padded. Prophylactic antibiotics in the form of Cefazolin were administered. 1g of Tranxemic Acid was given intravenously within 30 minutes of incision. The left leg was then prepped with Chloraprep and draped in a standard fashion with impervious stockinette and extremity drape with Iodine impregnated skin protection. A timeout to confirm correct identity, side and site, procedure, allergies, anesthesia, and medical concerns was performed. With the knee in some flexion, a midline incision was made overlying the knee. Full thickness skin flaps were raised once the extensor mechanism was encountered. These were raised medially and laterally. Any bleeding was controlled with electrocautery. Once the extensor mechanism was fully exposed, a medial parapatellar arthrotomy was performed in a flexed position. All bleeding from the arthrotomy and the geniculate arteries was coagulated. A medial subperiosteal peel was performed with electrocautery to the midcoronal plane. The fat pad was removed while keeping the patellar tendon protected. The anterior distal femur synovium was removed for later visualization. The ACL and PCL were resected and the anterior horn of the lateral meniscus was transected. The knee was then flexed with the patella everted. Large osteophytes from the tibia were removed. Large osteophytes from the femur were removed. A single starting pin was then placed 1cm anterior to the PCL insertion and the notch in the direction of the femoral head. The OrthoAlign device was applied over the pin. It was oriented to be in line with the epicondylar axis and the trochlear groove. It was then pinned into place. The navigation computer was then turned on and calibrated. The distal femur cut was set at 0 degrees varus/valgus and 2.5 degrees flexion. The distal femur cutting guide then was positioned for a 9mm cut. The distal femur was cut with an oscillating saw while protecting the soft tissues. The tibia was then addressed. The OrthoAlign device was placed over the tibial tubercle and medial tibia and secured into position. Once again, OrthoAlign was calibrated and then set for a 0 degree varus/valgus cut and 3 degrees of posterior slope. With this locked into position, the cut thickness stylus was used to assess cut thickness. The lateral side, most involved side, was set for a 4mm cut which corresponded to 6-7mm medially. This was then held in position and pinned into place with 2 additional pins and a cross pin for stability. The medial and lateral collateral ligaments were protected and the cut was performed. With this completed, it was assessed and noted to be of appropriate dimensions. The guide and OrthoAlign was removed. A spacer block was inserted and the knee was brought into extension. The 7mm spacer block provided full extension, without hyperextension and with stability of both the medial and lateral collateral ligaments was assessed. The pins from the femur and the tibia were then removed. The distal femur was then sized. The anterior stylus was placed onto the lateral ridge of the anterior femur. This indicated a size 4 femur. The external rotation of the guide was adjusted to 3 degrees to match the epicondylar axis, perpendicular to Hamilton?s line. The 4-in-1 cutting guide was the placed. The posterior medial femur cut was evaluated and appeared of good thickness. The spacer block was inserted underneath the cutting guide and stability was confirmed in 90 degrees of flexion. An rick wing was used to confirm appropriate position of the anterior cut to avoid notching. This cutting guide was ensured to be flush on the cut surface and then pinned into place with headed pins. While protecting the soft tissues, quad tendon, and collateral ligaments, the anterior and posterior cuts were performed with a saw. The central two pins were removed and the posterior and anterior chamfers were cut next. The notch-cutting guide was placed. This was pinned to lateralize the femoral component as much as possible while keeping it flush on the cut surface. This was then pinned into position. A reciprocating saw was used to make the notch cut. A rasp smoothed the cut surfaces. A trial posterior stabilized femoral component was then inserted, impacted down to the cut surfaces, and the lug holes were drilled. A provisional trial tibial component was placed and the knee was brought through range of motion. The polyethylene was trialed until there was good flexion and extension with excellent stability to the medial and lateral collaterals. The patella was tracking without thumbs. The tibial cut surface was fully exposed. The medial and lateral menisci were removed. The tibia was then sized as a 4. The tibia had been previously marked during trialing to correspond to the center of the tibial component to help with rotation. The trial was aligned to this marleny, approximately rotated to the medial 1/3rd of the tibial tubercle. The trial was pinned into place. The tibia was prepared with a reamer and a keel punch. The knee was then brought into extension and the patella was measured as 22mm. Using the patellar clamp and cut guide, this was resected to a flat surface with at least 13mm of thickness remaining. The size 32 patella fit the best. This was oriented and then clamped into position. The lugs were drilled. The trial components were removed. The final components, except for the polyethylene were opened on the back table. The periosteal and capsular tissues, especially posteriorly, around the knee were then systematically injected with a periarticular cocktail consisting of 246mg of Ropivacaine, 0.5mg of Epinephrine, 0.08mg of Clonidine, and 30mg of Ketorolac, diluted to 100cc. The tourniquet was then inflated to 275mmHg. The knee was thoroughly irrigated with a pulse lavage and dried. On the back table, with the implants opened, the cement was mixed. 2 batches of medium viscosity cement were prepared with vacuum assistance. After the cement was ready a small amount was placed on to the back side of the tibial component at the keel. A small amount was placed onto the posterior flange of the femur. Cement was manual pressurized and impregnated into the cut surface of the tibia. The tibial component was then inserted into the cut surface and impacted into position. Excess cement was removed and the component was reimpacted. Again, excess cement was removed and our attention was then turned to the femur. The femoral cut surface was once again dried and cement was manually impacted into the cut surface. The femoral component was lined with the lug holes and impacted. Excess cement was removed. It was ensured to be down against the cut surface. The trial polyethylene was then inserted and the leg was brought out into full extension for the duration of the cement curing process, approximately 18min. Cement was lastly manually impacted into the cut surface of the patella and the patellar button was clamped into position and held. During this process attention was turned to the gutters of the knee and for all interfaces for any excess cement. The knee was thoroughly irrigated with Surgiphor betadine solution. It was allowed to sit in the wound for 3 minutes before being irrigated out with saline. After the cement had finally cured, approximately 18min, the clamp was removed from the patella and the knee was taken through range of motion. A size 8mm polyethylene component provided the best range of motion and stability with less than 2mm gapping with medial and lateral stress and full extension without significant hyperextension. The patella was tracking with a no-thumbs technique. The trial poly was removed and once again the knee was checked for any loose, excess, or errant cement. The poly component was then inserted and impacted into position after cleaning and drying the tibial tray. The capsule was then reapproximated with a No. 1 Vicryl at multiple locations. The capsule was finally closed with a No. 2 Stratafix, barbed suture. The tourniquet was then released and the arthrotomy appeared watertight without significant bleeding. The second dosing of 1g TXA was started. Deep tissues were then reapproximated with 0 Vicryl and 2-0 Monocryl. The skin was closed with a running 3-0 Monocryl in a subcuticular fashion. This was reinforced with skin glue. A Mepilex silver dressing was applied along with a [id number] TYRONE wrap. A CryoCuff was applied. Michelle was transferred to the hospital bed without difficulty an suffering no apparent complication. Michelle has a good prognosis. Physical therapy will start today and without restrictions, weight-bearing as tolerated. Aspirin 81mg BID will be used for DVT prophylaxis.
--- NOTE | 2022-07-18 14:02 | W.PM.DS.N ---
DS: Diagnosis Discharge Diagnosis (1) Primary osteoarthritis of left knee: Status: Acute Discharge Plan Disposition Patient Disposition: Home Condition: Good Discharge Details Reason For Visit: Left Knee DJD Admit Date/Time: 07/18/22 07:29 Admit Provider: Abe Richey Attending Provider: Abe Richey Primary Care Provider: Brandon Siddiqui [facility] Course Hospital Course: Patient was admitted to the medical/surgical floor following the procedure. The surgery was tolerated well without any notable medical, surgical, or anesthetic complications. Mobilization began postoperatively. She was voiding spontaneously. Michelle did have asymptomatic hypotension which responded well to small fluid boluses. Her home BP medications were held. Physical therapy worked with the patient and was cleared for discharge home with home health services. No acute medical issues. Pain was controlled on oral regimen. Home Meds and New Rx's Prescriptions: New celecoxib [Celebrex] 200 mg capsule 200 mg PO BID Qty: 30 0RF aspirin 81 mg tablet,delayed release (DR/EC) 81 mg PO BID 30 Days Qty: 60 0RF acetaminophen 500 mg tablet 1,000 mg PO Q8H PRN Qty: 90 0RF Rx Instructions: Take two tablets up to every 8 hours as needed for pain pantoprazole 40 mg tablet,delayed release (DR/EC) 40 mg PO DAILY 30 Days Qty: 30 0RF docusate sodium [Colace] 100 mg capsule 100 mg PO BID Qty: 30 0RF gabapentin 300 mg capsule 300 mg PO QHS Qty: 14 0RF Rx Instructions: Take one tablet at bedtime oxycodone 5 mg tablet 5 mg PO Q4H PRN (Reason: severe post-operative pain) Qty: 18 0RF Rx Instructions: Take one tablet up to every 4 hours as needed for severe pain Continued levothyroxine [Synthroid] 300 mcg tablet 300 mcg PO DAILY Qty: 30 11RF Centrum Silver 1 EACH tablet 1 ea PO DAILY cholecalciferol (vitamin D3) [Vitamin D3] 1,000 UNIT capsule 1,000 unit PO DAILY Qty: 100 Rx Instructions: Vitamin D supplement calcium carbonate [Calcium 500] 500 MG tablet 1,000 mg PO DAILY Qty: 180 Rx Instructions: 2 tablets daily quetiapine [Seroquel] 25 mg tablet 25 mg PO HS Qty: 30 11RF Rx Instructions: DIRECTED for for bipolar disorder cyanocobalamin (vitamin B-12) 1,000 mcg/mL solution 1,000 mcg IM QMONTH Qty: 4 3RF Rx Instructions: to be administered at home for E 53.9 (DME) BD Luer-Clarisse Syringe 3 mL 25 gauge x 1 syringe See Rx Instructions .ROUTE .MEDSUPPLY Qty: 4 3RF Rx Instructions: to administer Vitamin B-12 injections monthly E53.9 bismuth subsalicylate [Pepto-Bismol] 262 mg/15 mL Suspension 524 mg PO Q30-60M PRN Rx Instructions: do not exceed 8 doses in a 24 hour period Held amlodipine 10 mg tablet 10 mg PO DAILY Qty: 30 11RF Hold Instructions: Resume on 07/25/22. Resume when systolic blood pressure is over 110 atenolol 100 mg tablet 100 mg PO BID Qty: 60 11RF Hold Instructions: Resume on 07/31/22. Use per parameters by PCP Rx Instructions: to control BP under 150/85 Discontinued aspirin 81 MG tablet,delayed release (DR/EC) 81 mg PO DAILY celecoxib 400 mg capsule 1 cap PO DAILY Label Comments: TAKE ONE CAPSULE BY MOUTH EVERY DAY loperamide [Imodium A-D] 2 mg Tablet 2 mg PO QID PRN Discharge Instructions Additional Instructions: Total Knee Discharge Instructions Activity: The most important activity is to walk and to work on gentle motion (both flexion and extension). You should try to take short walks a few times a day. It is important that when resting you work on keeping the knee straight. Avoid putting a pillow behind the knee as this will encourage flexion. Work on range of motion exercises as provided by Physical Therapy. - Start outpatient physical therapy within 2 weeks. - You should wear the KAROL hose on both legs for 2 weeks. You may remove these at night. You may also use any compression sock in place of the KAROL hose. - Utilize [employer] to review exercises, see videos on exercises and obtain basic information pertaining to your surgery and your recovery. Dressing: Remove the Rigoberto wrap by 2 days after your surgery and put on the KAROL stocking given to you from the hospital. Keep the surgical dressing (underneath the RIGOBERTO wrap) in place for at least one week. After the first week it may be removed and replaced with light gauze and tape or nothing. The wound and dressing may get wet after 3 days but avoid soaking the dressing or otherwise it will need to be changed. Many people prefer covering the dressing with cling wrap (saran wrap) to minimize it from getting soaked. If it gets wet, just pat dry. If it starts to peel off then it will need to be changed. Medications: - You should take Tylenol and anti-inflammatory Celebrex as your primary pain control medications. If the Celebrex is too expensive or not covered, please call the office for another alternative (Advil/Ibuprofen or Naproxen/Aleve) - You have been prescribed a stronger pain medication Oxycodone for breakthrough pain, take as needed as prescribed. - You have also been prescribed a stomach acid reduction agent Pantoprozole to help reduce stomach acid and reflux. - You have been prescribed Gabapentin to take at night for restlessness and nerve pain. - You will be taking Aspirin 81mg twice a day for DVT prevention unless instructed otherwise. - If you have constipation you should take Colace (which has been prescribed) or Miralax (which is available [id number]). It takes most people 3-4 days to have a bowel movement. Follow-up: 2 weeks If you have any acute concerns or questions, please do not hesitate to contact the office at [phone]. You may contact Dr. Richey with any questions after hours through the hospital at [phone] or on his cell phone at [phone]. 1. Encounter Date and Reason I certify that Michelle Whitaker was seen by Abe Richey MD on 07/21/22 and that I had a [id number] encounter with this patient that meets the physician face to face encounter requirements. 2. Clinical Findings Supporting Skilled Need and Homebound Status I certify that home health services are medically necessary, include either intermittent detention and/or physical/speech therapy, and that this patient is homebound in that absences from the home require considerable and taxing effort and are infrequent or of short duration, or are attributable to the need to receive medical care. [X] (a) Attached documentation from encounter provides clinical findings supporting skilled need and homebound status (including what assistance patient requires to leave the home). The encounter with the patient was in whole, or in part, for the following medical condition, which is the primary reason for home health care: Left Knee DJD Senior Living: Physical Therapy: Michelle would benefit from PT services due to her gait dysfunction, stiffness, and weakness following knee replacement surgery. She is WBAT on the left knee with assisitive devices. She should work equally on knee extension and flexion and a return to independent ambulation. Speech Therapy: Homebound: Michelle is unable to leave her home unassisted due to gait disruption from weakness and recent surgery on the left knee. 3. Certification and Authentication I certify that I composed the above information based on my clinical judgement relating to this patient's medical condition and, if applicable, clinical findings communicated to me by the NPP or inpatient physician who performed the Home Health Referral. All further orders will be obtained through Dr. Richey. Referrals: Abe Richey MD [ [facility] STAFF PHYSICIAN] - Activity:: Activity as Tolerated Equipment/Supplies:: Walker Diet:: As Tolerated DS: Data Vitals/I&O Vitals and I&O: Vital Signs Temperature 97.5 F L 07/18/22 10:52 Temperature Source Skin 07/18/22 10:52 Pulse 94 H 07/18/22 10:52 Pulse Rhythm Regular 07/18/22 10:30 Respiratory Rate 18 07/18/22 10:52 Respiratory Effort 07/18/22 10:26 Respiratory Depth Normal 07/18/22 10:26 Respiratory Pattern Normal 07/18/22 10:26 Blood Pressure 115/58 L 07/18/22 10:52 Blood Pressure Mean 77 07/18/22 10:52 Pulse Oximetry 94 07/18/22 10:52 Oxygen Delivery Method Room Air 07/18/22 10:52 Oxygen Flow Rate 0 07/18/22 10:52 Pain Level 0 07/18/22 10:52 Comment 07/18/22 10:52 Intake & Output 07/17/22 07/18/22 07/18/22 23:59 11:59 23:59 Intake Total 510 / 510 Output Total 200 / 200 Balance 310 / 310 Weight 180 lb 12.465 oz Intake: IV 510 / 510 Output: Estimated Blood Loss 200 / 200 Data Completed and Pending Labs on day of discharge: Labs from last 24 hours 07/18/22 10:16 COVID-19 Source Nasal/Nares SARS-CoV-2 (PCR) Negative PFSH All Active Problems Primary osteoarthritis of left knee (Acute) Steroid injection: 03/27/2022 Osteoarthritis of knees, bilateral (Chronic) Left knee - Depo-Medrol injection: 03/27/22 Cellulitis (Acute) Chronic diarrhea (Acute) UTI (urinary tract infection) (Acute) Depressive disorder (Chronic 08/26/81) & ANXIETY; SERTRALINE 06/2011; JENNA 10/10/2007 Benign essential hypertension (Acute 08/26/83) Chest pain (Acute 11/23/11) Herpes zoster (Acute 11/23/11) Knee pain (Acute 03/19/15) Syncope and collapse (Acute 11/23/11) Trigeminal herpes zoster (Acute 04/23/17) 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) Vitamin B deficiency (Chronic 08/26/90) Sleep disturbance, unspecified (Chronic 11/23/11) Osteopenia (Chronic 05/11/15) DEXA 04/2015 Nocturia more than twice per night (Chronic 06/26/17) Knee pain, left (Chronic 07/05/15) 12/2004 x-ray mild spurring; 02/02/17 mod DJD, nafisa lateral component Hypothyroidism (Chronic 05/26/87) Hyperlipidemia (Chronic 11/23/11) 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 Patient requested a refill of amlodipine, which we sent. She can follow-up routinely for six-month blood pressure checks. Chronic diarrhea (Chronic 03/09/00) GI consult 2002, responded to augmentin 875/125 BID for bacterial overgrowth; failed to respond to Amox 2004 but did in 2007. 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 Palafox, Podiatry 1993 H/O left breast biopsy H/O: hysterectomy (~08/26/70) History of cataract surgery (05/13/18) Open Carpal Tunnel release (08/27/79) bilateral C[place] surg, [place] Pacemaker (08/10/98) [facility] [place] Replaced Dr. Forde 04/03/13 Family History Mother , (smoker), cause NH at age 72. Myocardial infarct COPD (chronic obstructive pulmonary disease) Alcohol abuse Father , 52 Myocardial infarct Smoker Alcohol abuse Sister , age 80 Diabetes Osteoporosis Arthritis Myocardial infarct Sister , 63, angioplasty, dies of NH Myocardial infarct Brother , 74, CABG age 58 of lung ca Alcohol abuse Lung cancer Brother , 52 Myocardial infarct Other Hyperlipidemia Social History Smoking/Tobacco Use Status: Never Smoking risk assessment performed?: Yes Alcohol Intake: former Year quit: 1986 Drug use: Never Substance use type: does not use Adopted: No Foster care: No Housing: house Number of Children: 6 Communication Needs: None current occupation: retired MASTER BARBER Pets and animals: No Current gender identity: female Other: support from 108 pen pals over country, Son Aubrey Mueller,Raul Devan What is your relationship status?: Panel score (0-1 are the most socially isolated patients): 0 What type of physical activity do you participate in: none Seatbelt use: always Drive intox or ride w/intox superintendent drivers: No Water heater temp set <120 deg: Yes Working smoke detector in home: Yes Fire extinguisher in home: Yes Do you feel safe at home: Yes Do you feel safe in your relationship?: Yes
[2022-07-18] MEDS: ePHEDrine 25 MG/5 ML Syringe IVP ×2 (14:32→14:47)
[2022-07-18] MEDS: HYDROmorphone 2 MG/ML SYR IVP ×2 (14:48→14:59)
[2022-07-18] MEDS: Normal Saline 10 ML VIAL IJ (14:48)
[2022-07-18] MEDS: ePHEDrine 50 MG/ML VIAL 25 MG IM (15:33)
--- NOTE | 2022-07-18 15:35 | W.ANESPOSTOP ---
Postoperative Evaluation Date, Time and Location Date Performed: 07/18/22 Time Performed: 15:35 Patient Location: PACU Vital Signs Most Recent Imported Vital Signs: Most Recent Vital Signs Temp Pulse Resp BP Pulse Ox 36.5 C 68 16 85/64 L 99 07/18/22 15:00 07/18/22 15:05 07/18/22 15:05 07/18/22 15:05 07/18/22 15:05 Pain Score Most Recent Pain Score: Most Recent Pain Score Pain Level 7 07/18/22 15:05 Assessment Mental Status: Awake (Alert & Oriented to Patient Baseline) Airway and Respiratory Function: Patent airway with normal (patient baseline) respiratory exam Cardiovascular Function: Hemodynamically Stable Hydration Status: Adequately Hydrated Nausea & Vomiting: No Nausea or Vomiting Pain: Pain is tolerable per patient Peripheral Nerve Block: Patient did not receive a nerve block Postoperative Comments:: BP with MAP ~60, IM ephedrine ordered.
[2022-07-18] MEDS: oxyCODONE 5 MG TAB PO (16:55)
[2022-07-18] MEDS: Atenolol 50 MG TAB 100 MG PO (20:02)
[2022-07-18] MEDS: Aspirin E.C. 81 MG TABEC PO (20:02)
[2022-07-18] MEDS: Celecoxib 200 MG CAP PO (20:03)
[2022-07-18] MEDS: ceFAZolin 1 GM/50 ML BAG IVPB (20:04)
[2022-07-18] MEDS: Normal Saline Flush 10 ML SYR IV (20:15)
[2022-07-18] MEDS: HYDROmorphone 2 MG/ML SYR 0.5 MG IVP (20:16)
[2022-07-18] MEDS: Ondansetron 4 MG/2 ML VIAL IVP (20:18)
[2022-07-18] MEDS: QUEtiapine 25 MG TAB PO (21:31)
[2022-07-19] VITALS (8 sets, daily range): BP systolic 90–132; BP diastolic 50–76; PULSE 60–76; RESP 16–20; TEMP 35.2–36.2; O2SAT 96–99
[2022-07-19] MEDS: Docusate Sodium 100 MG CAP PO (03:59)
[2022-07-19] MEDS: ceFAZolin 1 GM/50 ML BAG IVPB ×2 (03:59→12:09)
[2022-07-19] MEDS: Polyethylene Glycol 3350 17 GM PACKET PO (04:00)
[2022-07-19] MEDS: Levothyroxine 150 MCG TAB 300 MCG PO (06:26)
[2022-07-19] MEDS: Atenolol 50 MG TAB 100 MG PO ×2 (08:28→20:27)
[2022-07-19] MEDS: Cholecalciferol (Vitamin D3) 1,000 UNIT TAB 1000 UNITS PO (08:28)
[2022-07-19] MEDS: Acetaminophen 500 MG TAB 1000 MG PO ×3 (08:28→20:08)
[2022-07-19] MEDS: Celecoxib 200 MG CAP PO ×2 (08:29→20:27)
[2022-07-19] MEDS: amLODIPine 10 MG TAB PO (08:29)
[2022-07-19] MEDS: Calcium Carbonate 1.25 GM TAB PO (08:29)
[2022-07-19] MEDS: Aspirin E.C. 81 MG TABEC PO ×2 (08:29→20:26)
[2022-07-19] MEDS: Pantoprazole 40 MG TABCR PO (08:29)
[2022-07-19] MEDS: Multivitamin w/Minerals TAB 1 TAB PO (08:29)
[2022-07-19] MEDS: Normal Saline Flush 10 ML SYR IV (08:30)
[2022-07-19] MEDS: Ondansetron 4 MG/2 ML VIAL IVP (08:43)
[2022-07-19] MEDS: oxyCODONE 5 MG TAB PO ×2 (08:43→17:19)
--- NOTE | 2022-07-19 09:28 | IN_ITS ---
Date of service: 07/19/22 Time of Service: 09:28 PT Notes Visit Reasons: Left knee DJD Physical Therapy Inpatient Initial Evaluation Date: 07/19/2022 Referring Doctor: LOREE Mason PT Orders: PT CONSULT: S/P Ortho surgery Precautions: Fall. Standard. WBAT on L LE with AD. Patient Profile/Admitting Diagnosis: Michelle is an 87-year-old female with degenerative joint disease of the left knee with valgus deformity and is status post left total knee arthroplasty on postoperative day 1. PMHX: Surgical History?(Updated 05/25/18 @ 10:33 by Vadim Dominguez MD) Appendectomy (~1952) H/O breast biopsy (~09/25/03) H/O colonoscopy (~08/21/00) H/O foot surgery Dr. Palafox, Podiatry 1993H/O left breast biopsy H/O: hysterectomy (~08/26/70) History of cataract surgery (05/13/18) Open Carpal Tunnel release (08/27/79) bilateral CTS surg, [place] & [place] (08/10/98) [facility] [place] [facility] RECURRENT SYNCOPE Replaced Dr. Forde 04/03/13 Social History/Home Situation: Lives alone in a private home with 4 steps to enter with rails on B sides. Has a friend who hasbeen helping out as much as she is able. Has son and son's family who help occaionally but lives an hour away from here. Independent with all ambulation activities using 4 wheeled walker. Equipment Owned/DME: 4WW Subjective: Complained about fatigue and lack of sleep the previous night. Reports nausea. Did not want to initially go out and just wanted to rest and sleep. Per Nurse Seble, patient just got her pain pill medication a little while ago. Patient decided to get out of bed after explaining to her that we do not want to miss that window of opportunity to move with less pain with her pain pill intake. Complained of fatigue after activity. Does not want to go home too soon as she does not feel safe yet. Objective: General Observation: TYRONE wraps to left LE. IV access through her right UE. Cryo/Cuff on left knee. Mental Status: Alert and oriented as to person, place, time, and purpose. Able to pay attention, focus, and respond appropriately. Pain: 5-6/10 with ambulation activity Vital Signs: WNL both monitored by nursing staff ROM: Right Lower Extremity: Hip flexion WFL. Hip abduction WFL. Knee flexion WFL. Ankle dorsiflexion WFL. Ankle plantarflexion WFL. Left Lower Extremity: Hip flexion WFL. Hip abduction WFL. Knee flexion 20 degrees to 90 degrees. Extension -20 degrees ankle dorsiflexion WFL. Ankle plantarflexion WFL. Strength: Right Lower Extremity: Hip flexors 4/5. Hip abductors 4/5. Knee flexors 4/5. Knee extensors 4/5. Ankle dorsiflexors 4/5. Ankle plantarflexors 4/5. Left Lower Extremity: Hip flexors 4-/5. Hip abductors 4-/5. Knee flexors 3-/5. Knee extensors 3-/5. Ankle dorsiflexors 4-/5. Ankle plantarflexors 4-/5. Bed Mobility/Transfers: Supine to sit contact-guard assist Sit to supine contact-guard assist Sit to stand minimal assist with FWW Stand to sit contact-guard assist with FWW Bed to reclining chair contact-guard assist with FWW Reclining chair to bed contact-guard assist with FWW Gait: Instructed patient with level surface ambulation of 20 feet + 20 feet requiring contact-guard assist. More decreased. Step height decreased. Step length decreased. Good quad activation. Balance: Static Sitting: Normal Dynamic Sitting: Normal Static Standing: Fair Dynamic Standing: Fair Special Tests: Mobility Limitations Standardized Measure [facility] AM-PAC 6 clicks Basic Mobility Inpatient Short Form: Raw Score: 18 CMS Score: 47% deficit Informed Consent/Education: Patient was instructed in purpose of PT consult and plan of care. Agreeable to proceed with established PT POC to achieve personal goals. Assessment: Patient requires the use of a front wheel walker and contact-guard assist for all mobility ADL performance in order to maximize independence and reduce fall risk Patient presents with clinical signs and symptoms consistent with current/admitting diagnoses that have resulted to mobility limitations, gait instability, generalized weakness, and overall ADL decline as demonstrated by the following impairment level findings: 1. Decreased strength to L knee major muscle groups 2. Impaired standing balance 3. Impaired activity tolerance 4. Limitation of joint range of motion in L knee Impairments are contributing to the following functional limitations: 1. Decline in bed mobility skills 2. Decline in transfer skills 3. Difficulty with ambulation without assistive device and physical assistance 4. Increased completion time for mobility ADL performance 5. Increased risk for falls 6. Difficulty with managing steps alone safely Patient is assessed as a 81745 moderate complexity based on the following: History: 87-year-old female with past medical history as indicated above Examination: Demonstrable impairment in strength, balance, and mobility level with underlying impairments and functional limitations as exhibited above as well as deficit score of 47% utilizing the [facility] Mobility Inp atient Short Form Presentation: Evolving Decision Makin moderate complexity Goals: Goals X1 week 1. Supine-Sit independent 2. Sit-Supine independent 3. Sit-Stand independent 4. Stand-Sit independent with FWW 5. Bed-Chair independent with FWW 6. Chair-Bed independent with FWW 7. Independent gait on level surface with use of FWW for at least 300 feet without report of pain nor dyspnea 8. Independent stair negotiation while holding onto B rails for at least 3 steps without report of pain nor dyspnea 9. Independent with home exercise program 10. Good static and dynamic standing balance/tolerance Plan of Care/Treatment Plan: 1-2x/day, 7 days/week x 1 week. Plan of care has been reviewed with the [facility]URLES[employer] DANCER providing the service under Physical Therapy direction. Initiate Physical Therapy intervention for pain management as needed, strengthening, bed mobility, transfers, gait, stairs, balance training, and use of assistive device. DISCHARGE RECOMMENDATIONS: [] Home with no services [] [X] Home with services. Patient will benefit from home health PT services in order to progress mobility level using FWW ambulatory device, assess home safety , identify additional equipment needs, and establish a functional maintenance program that will increase ability of patient to remain at home. [] Home with outpatient PT [] [] SNF for continued rehabilitation [] [] Group Home Care [] [] SNF versus LTC based on ability to participate and progress [] TREATMENT CODE/TIME: 99646 x20 minutes, 9753 0 x 14 minutes beginning at 9:28 AM. Thank you for the opportunity to participate in the care of this patient. Maribel Macias PT, DPT, CLT [facility] [place], [place]
--- NOTE | 2022-07-19 11:53 | PDOC.CMIN ---
- If Service Date Differs Date of service: 07/19/22 Time of Service: 11:54 Care Management Initial Assess REASON FOR HOSPITALIZATION:: Left Knee DJD PAST MEDICAL HISTORY/PAST SURGICAL HISTORY:: Surgical History?. Appendectomy (~1952). H/O breast biopsy (~09/25/03). H/O colonoscopy (~08/21/00). H/O foot surgery. Dr. Palafox, Podiatry 1993H/O left breast biopsy. H/O: hysterectomy (~08/26/70). History of cataract surgery (05/13/18). Open Carpal Tunnel release (08/27/79). bilateral CTS surg, [place] & [place] (08/10/98). [facility] [place]. Replaced Dr. Forde 04/03/13 PREVIOUS FUNCTIONAL STATUS/SOCIAL/FAMILY SUPPORTS:: Michelle lives alone in [facility]. She has a friend, Acacia, who helps with housekeeping, errands, and assists with care when needed. Her son Aubrey lives in [place], and is supportive. Michelle is mostly independent with her ADL's at baseline. CURRENT FUNCTIONAL STATUS:: Michelle was sitting up in her chair when CM met with her. She stated that she is not feeling well today- she is nauseaus and her blood pressure is low. CM spoke to her friend, Acacia, who stated that she does not have a caregiver for a couple of days due to the holidays. CM reached out to MD who stated that due to her pain, low blood pressure and nausea, she will remain overnight, likely until Sunday, as he would like to monitor her. Michelle stated that she feels comfortable with this plan. She stated that she has two friends who will be staying with her, starting on Sunday. CM will continue to follow. ADVANCE DIRECTIVES:: Not on file. Has patient been provided with info about the portal/API?: Yes Did the patient sign up for the portal?: No CODE STATUS:: Full Code INSURANCE COVERAGE / FINANCIAL ISSUES:: MCR/ BCBS CURRENT HOME/COMMUNITY SERVICES/EQUIPMENT:: Michelle has a commode at home and a 4WW. She has a friend, Acacia who helps with housekeeping and errands. PRIMARY CARE PHYSICIAN:: Brandon Siddiqui POTENTIAL DISCHARGE NEEDS:: Evaluation for further needs, supports, follow up appointments. PATIENT/FAMILY EDUCATION NEEDS:: Review discharge instructions and limitations, discussion of self care needs including ask me three. ANTICIPATED BARRIERS TO DISCHARGE:: Michelle does not have help at home until Sunday TRANSPORTATION:: Via private vehicle by family. PLAN:: Michelle will return home when medically cleared. Her friend will drive her home via private vehicle. She will follow up with Ortho, her PCP and discharge plan of care. CM will continue to follow.
--- NOTE | 2022-07-19 14:04 | PHA.REVIEW2 ---
Pharmacy Admission Review - Admission Clinical Review phenytoin Allergy (Unknown, Verified 07/17/22 11:13) Skin Rash ibuprofen Adverse Reaction (Intermediate, Verified 07/17/22 11:13) vomiting Resuscitation Status Full Code Height 5 ft 2 in Weight 82 kg - Renal Dosing Medications needing adjustments: Reviewed (crcl = 40, no adjustments needed) - Anticoagulation DVT Prophylaxis: Reviewed Medications: Aspirin (aspirin 81 mg BID) Therapeutic Anticoagulation: N/A - Opiate Usage Evaluate Pain Scale/Pains Meds: Reviewed (oxycodone 5-10 mg q3h prn, has received 2 x 10 mg doses (>12 hrs apart). hydromorphone 0.5 mg IVP q2h prn, received 1 dose last night) Scheduled Bowel Reg ordered if on Opiates?: No (prn docusate) - Relevant Labs Electrolytes, C-Reactive P, ESR: N/A (no labs) - DM Control DM Control: N/A - Cardiac Review BP, HR, EF%: Reviewed (BP slightly low, takes amlodipine 10 mg daily + atenolol 100 mg BID - consider adjusting) - Qtc Review QTc: N/A (last EKG from 2020) - IV to PO Switch IV Medications: Reviewed - Home Meds Home Med List reviewed: Reviewed (all home meds ordered) - Current meds Current Medication Order Review: Reviewed - Comments Comments/Follow Ups: monitor BP, consider adjusting antihypertensives
--- NOTE | 2022-07-19 14:34 | PTTR_ITS ---
Date of service: 07/19/22 Time of Service: 14:34 PT Notes Visit Reasons: Left Knee DJD P hysical Therapy Inpatient treatment Note Date: 07/19/2022 Precautions: Fall. Standard. WBAT on L LE with AD. Subjective: Did not want to participate initially stating that she needed rest. After education of the benefit of exercise and mobility performance by Nurse Pruett and PT, patient agreed. Reported nausea after the walk that required seated rest. ? Objective: General Observation: TYRONE wraps to left LE.? IV access through her right UE.? Cryo/Cuff on left knee. Mental Status: Alert and oriented as to person, place, time, and purpose. Able to pay attention, focus, and respond appropriately. Pain: 5-6/10 with ambulation activity Vital Signs: WNL both monitored by nursing staff Bed Mobility/Transfers: Supine to sit stand by assist Sit to supine stand by assist Sit to stand stand by assist with FWW Stand to sit stand by assist with FWW Bed to reclining chair stand by assist with FWW Reclining chair to bed stand by assist with FWW Gait: Instructed patient with level surface ambulation of 50 feet + 50 feet requiring contact-guard assist. More decreased. Step height decreased. Step length decreased.? Good quad activation. Complained of nausea that required a seated rest, resolved with return back to supine in bed. Balance: Static Sitting: Normal Dynamic Sitting: Normal Static Standing: Fair Dynamic Standing: Fair Assessment: Appears anxious about moving eventhough she does well with FWW. Continue to complain bout the need for more sleep and getting nauseous when moving. Patient requires the use of a front-wheeled walker and contact-guard assist for all mobility ADL performance in order to maximize independence and reduce fall risk Patient presents with clinical signs and symptoms consistent with current/admitting diagnoses that have resulted to mobility limitations, gait instability, generalized weakness, and overall ADL decline as demonstrated by the following impairment level findings: 1.? Decreased strength to L? knee major muscle groups 2.? Impaired standing balance 3.? Impaired activity tolerance 4.? Limitation of joint range of motion in L knee Impairments are contributing to the following functional limitations: 1.? Decline in bed mobility skills 2.? Decline in transfer skills 3.? Difficulty with ambulation without assistive device and physical assistance 4.? Increased completion time for mobility ADL performance 5.? Increased risk for falls 6.? Difficulty with managing steps alone safely DISCHARGE RECOMMENDATIONS: [] ? Home with no services [] [X] ? Home with services.? Patient will benefit from home health PT services in order to progress mobility level using FWW ambulatory device, assess home safety, identify additional equipment needs, and establish a functional maintenance program that will increase ability of patient to remain at home. [] ? Home with outpatient PT [] [] ? SNF for continued rehabilitation [] [] ? [facility] [] [] ? SNF versus LTC based on ability to participate and progress [] TREATMENT CODE/TIME: 76743 x 20 minutes, 60597 x 10 beginning at 14:34 PM.
--- NOTE | 2022-07-19 14:37 | CHAPLAIN ---
Michelle was sitting up in the chair when I visited. She told me about her knee surgery and said she's had difficulty with nausea since her surgery. Michelle old me her 15 years ago and her son, who lives in [place], helps her out when needed. She said she loves her house and wants to stay in it, that's why she had knee surgery so she could get around with her walker. If she has to be in a wheelchair, she said she wouldn't be able to stay in her home. Michelle is a member of [employer]. She told me that she says her rosary and reads the bible daily. She also has a large picture of Pancho over her bed which brings her a great deal of comfort.
[2022-07-19] MEDS: Promethazine 25 MG TAB PO (14:40)
[2022-07-19] MEDS: LORazepam 0.5 MG TAB PO (17:20)
[2022-07-19] MEDS: QUEtiapine 25 MG TAB PO (20:28)
[2022-07-19] MEDS: Gabapentin 300 MG CAP PO (20:28)
--- NOTE | 2022-07-19 21:54 | W.PM.PROGNOT ---
Date of Service Date of service: 07/19/22 Time of Service: 15:30 Assessment and Plan Assessment and plan (1) Primary osteoarthritis of left knee: Status: Acute Assessment and plan: Michelle is POD#1 s/p L TKA. She is doing well, albeit with some nausea. I will add Promethazine to see if that helps. Continue to work with PT and ambulate through the day. ASA for DVT prophylaxis. Subjective Subjective Interval history since last seen: Michelle is doing well. She has been able to mobilize but does have nausea. No emesis. Pain controlled. Exam Narrative Exam Narrative: Sitting up in bed. NAD. AAOx3. LLE dressing c/d/i. +ADF/APF/EHL/FHL. SILT DP/SP/Tib.
[2022-07-20] VITALS (8 sets, daily range): BP systolic 80–102; BP diastolic 47–68; PULSE 60–71; RESP 16–64; TEMP 35.6–36.9; O2SAT 94–98
[2022-07-20] MEDS: Levothyroxine 150 MCG TAB 300 MCG PO (06:28)
[2022-07-20] MEDS: oxyCODONE 5 MG TAB PO ×2 (07:13→11:58)
[2022-07-20] MEDS: Cholecalciferol (Vitamin D3) 1,000 UNIT TAB 1000 UNITS PO (08:37)
[2022-07-20] MEDS: Aspirin E.C. 81 MG TABEC PO ×2 (08:37→20:30)
[2022-07-20] MEDS: Pantoprazole 40 MG TABCR PO (08:37)
[2022-07-20] MEDS: Normal Saline Flush 10 ML SYR IV ×3 (08:37→12:53)
[2022-07-20] MEDS: Lactated Ringers 500 ML IV ×2 (08:37→12:41)
[2022-07-20] MEDS: Celecoxib 200 MG CAP PO ×2 (08:38→20:31)
[2022-07-20] MEDS: Multivitamin w/Minerals TAB 1 TAB PO (08:38)
[2022-07-20] MEDS: Acetaminophen 500 MG TAB 1000 MG PO ×3 (08:38→20:32)
[2022-07-20] MEDS: Calcium Carbonate 1.25 GM TAB PO (08:38)
[2022-07-20] MEDS: amLODIPine 10 MG TAB PO (08:38)
[2022-07-20] MEDS: HYDROmorphone 2 MG/ML SYR 0.5 MG IVP (09:11)
[2022-07-20] MEDS: Ondansetron 4 MG/2 ML VIAL IVP (09:11)
--- NOTE | 2022-07-20 12:05 | PGE_ITS ---
Date of Service Date of service: 07/20/22 Time of Service: 09:30 Assessment and Plan Assessment and plan (1) Primary osteoarthritis of left knee: Status: Acute Assessment and plan: Michelle is POD#2 s/p L TKA. She is doing well. I encouraged her to stay on top of the pain but to make sure she takes a few walks today. We may repeat a fluid bolus as she has had decreased intake and sluggish UOP with the low blood pressures. We will continue to treat her mild nausea as well and hopefully d/c to home with [facility] tomorrow. Subjective Subjective Interval history since last seen: Michelle is doing well. She has been able to ambulate with PT and with nursing. She slept well last night. She has more pain this morning but it has responded to the medications. She denies any chest pain or shortness of breath. Her blood pressures have been running a little low but she has been asymptomatic. No chest pain or SOB. Exam Narrative Exam Narrative: Resting in the chair. LLE dressing c/d/i. TYRONE removed. +ADF/APF/EHL/FHL. Objective Last Vital Signs Temp 36.1 C L 07/20/22 11:44 Pulse 60 07/20/22 11:44 Resp 16 07/20/22 11:44 BP 88/56 L 07/20/22 11:44 Pulse Ox 97 07/20/22 11:44
[2022-07-20] MEDS: Promethazine 25 MG TAB PO (12:45)
[2022-07-20] MEDS: Polyethylene Glycol 3350 17 GM PACKET PO (14:03)
[2022-07-20] MEDS: LORazepam 0.5 MG TAB PO (17:12)
--- NOTE | 2022-07-20 17:52 | NUR.NOTE ---
Nursing Note: At this time, this RN asked the patient how her pain was in her abdomen. Patient states I really can't go home like this. My kids are all upset. My daughter is crying on the phone. My son is upset because I don't feel well. This RN educated the patient on the importance of focusing on getting stronger to go home. The patient started to cry and this RN provided emotional support. This RN asked the patient what she normally takes at home to help with bowel movements, and she said nothing. This RN asked the charge nurse for further bowel meds. Will continue to assess for bowel movements and for further bowel meds.
[2022-07-20] MEDS: Milk of Magnesia 30 ML CUP PO (20:30)
[2022-07-20] MEDS: Docusate Sodium 100 MG CAP PO (20:30)
[2022-07-20] MEDS: Gabapentin 300 MG CAP PO (20:31)
[2022-07-20] MEDS: QUEtiapine 25 MG TAB PO (20:31)
[2022-07-21] VITALS (8 sets, daily range): BP systolic 90–116; BP diastolic 54–77; PULSE 60–78; RESP 14–20; TEMP 35.5–36.6; O2SAT 94–100
--- NOTE | 2022-07-21 | DI.RAD_ITS ---
Exam(s) XR ABDOMEN FLAT PLATE EXAM: XR ABDOMEN FLAT PLATE CLINICAL HISTORY: nausea TECHNIQUE: COMPARISON: No exams were available for comparison FINDINGS: Three views were obtained. Transvenous cardiac pacemaker noted overlying the heart. Bowel gas pattern is within normal limits. No evidence of bowel obstruction. No gross organomegaly. IMPRESSION: No evidence of acute process. RADIATION DOSE DELIVERED: Total DLP
--- NOTE | 2022-07-21 | DI.RAD_ITS ---
Exam(s) XR KNEE LT 2V AP,LAT EXAM: XR KNEE LT 2V AP,LAT CLINICAL HISTORY: s/p L TKA with pain TECHNIQUE: COMPARISON: CR XR KNEE RT 3V AP,LAT,DAVID from 03/27/2022 FINDINGS: Three views were obtained and show total knee joint replacement in position. The components appear w ell seated. No other significant bony abnormality seen. Please note that Merchant view was not obta ined and if clinically indicated, additional evaluation with Merchant view should be considered. IMPRESSION: RADIATION DOSE DELIVERED: Total DLP
[2022-07-21] MEDS: Lactated Ringers 500 ML IV (00:14)
[2022-07-21] MEDS: HYDROmorphone 2 MG/ML SYR 0.5 MG IVP (01:27)
[2022-07-21] MEDS: Promethazine 25 MG TAB PO ×2 (06:21→21:12)
[2022-07-21] MEDS: Levothyroxine 150 MCG TAB 300 MCG PO (06:21)
[2022-07-21] MEDS: oxyCODONE 5 MG TAB PO (06:21)
[2022-07-21] MEDS: Ondansetron 4 MG/2 ML VIAL IVP (08:29)
[2022-07-21] MEDS: Acetaminophen 500 MG TAB 1000 MG PO ×3 (08:29→21:11)
[2022-07-21] MEDS: Calcium Carbonate 1.25 GM TAB PO (08:29)
[2022-07-21] MEDS: Multivitamin w/Minerals TAB 1 TAB PO (08:29)
[2022-07-21] MEDS: Celecoxib 200 MG CAP PO (08:29)
[2022-07-21] MEDS: Pantoprazole 40 MG TABCR PO (08:29)
[2022-07-21] MEDS: Cholecalciferol (Vitamin D3) 1,000 UNIT TAB 1000 UNITS PO (08:29)
[2022-07-21] MEDS: Aspirin E.C. 81 MG TABEC PO ×2 (08:29→21:11)
[2022-07-21] MEDS: Normal Saline Flush 10 ML SYR IV ×3 (08:29→15:41)
--- NOTE | 2022-07-21 09:47 | W.PM.PROGNOT ---
Date of Service Date of service: 07/21/22 Time of Service: 09:47 Assessment and Plan Assessment and plan (1) Nausea after anesthesia: Status: Acute Assessment and plan: Michelle is being hampered in her recovery progress by persistent nausea. We have already tried a host of options which have had very little change. Today I would like to schedule her MiraLAX as well as Dulcolax. We will move forward with a suppository as well. I will also schedule her promethazine. I would like to check a battery of labs to make sure there are no electrolyte abnormalities complicating this symptom profile. Furthermore, I will obtain an x-ray of her abdomen. Postop ileus is a concern but would be less likely. She has required some narcotics although not a significant amount. She is passing flatus and therefore I have little concern of obstruction, however, I will follow-up after the x-ray. I also worry that she may be having a little bit of gastroparesis once again, I expect all this will resolve on its own with little effort. Once she is able to get rid of her nausea I do expect that her recovery course will excelsior picker she will be able to make a progress. (2) Primary osteoarthritis of left knee: Status: Acute Assessment and plan: In general, I think her left knee is actually doing fine. Given her pain complaints I will check an x-ray just to make sure things look appropriate although clinically I do not have much concern. I think her lack of function today is related mostly to being nauseous, tired, generally uncomfortable. Continue weightbearing as tolerated. I do encourage her to move as ambulation can promote GI motility. She will continue with the aspirin for DVT prophylaxis. Unfortunately, given her significant nausea this requires further work-up. She will not be able to discharge to home. I also think we must consider potential discharge to rehab facility if she is unable to turn the corner. However, I think most of this will be determined by her progress with the nausea and vomiting. Subjective Subjective Interval history since last seen: Michelle reports continued nausea. She feels she is unable to tolerate any food intake. She also has limited desire to eat with her chronic nausea although no emma emesis. She was able to ambulate yesterday with physical therapy and with nursing although she reports significant weakness and feels that she cannot do that today. She was unable to sleep due to pain although she reports this pain is mostly due to her nausea. She denies any chest pain or shortness of breath. She does report abdominal pain. She is passing flatus per report. She has voided unmeasurable amounts on the commode. Once again, she had some hypotension last night although asymptomatic. She received a 500 cc bolus which improved her blood pressure readings. Exam Narrative Exam Narrative: Michelle is sitting in the chair. She is in no acute distress. Alert and oriented x3. She has a much more depressed affect today. Evaluation of her abdomen shows that it is soft. Generally tender throughout, slightly worse than the left lower quadrant although generally not much different throughout. Left knee has a clean dry and intact dressing. She is able to straight leg raise. Range of motion is not tested fully but she obtained 0 degrees of extension and does so with minimal discomfort. No significant swelling. No signs of infection. Objective Last Vital Signs Temp 36.6 C 07/21/22 07:36 Pulse 68 07/21/22 07:36 Resp 20 07/21/22 07:36 BP 110/76 07/21/22 07:36 Pulse Ox 96 07/21/22 07:36
[2022-07-21 10:02] LABS: HGB 10.2 g/dL (11.2-15.7); MCH 34.1 pg (27.0-33.0); MCHC 32.9 % (32.0-36.0); MCV 104 fL (80-95); MPV 10.4 fL (8.0-11.0); Platelet Count 183 10^3/uL (130-400); RBC 2.99 10^6/uL (3.93-5.22); RDW 13.8 % (11.7-14.6); RDW-SD 52.9 fL; WBC 8.42 10^3/uL (4.4-10.8)
[2022-07-21 10:16] LABS: ALT 8 U/L (14-59); AST 18 U/L (15-37); Albumin 2.6 g/dL (3.4-5.0); Alkaline Phosphatase 94 U/L (46-116); Anion Gap 5.8 mmol/L (3-11); BUN 46 mg/dL (7-18); Bilirubin, Total 0.5 mg/dL (0.2-1.0); CO2 27.2 mmol/L (21.0-32.0); CREATININE 2.4 mg/dL (0.55-1.02); Calcium 8.1 mg/dL (8.5-10.1); Chloride 94 mmol/L (98-107); Estimated GFR 19.31 (mL/min/1.73m2); Glucose 103 mg/dL (74-106); Sodium 127 mmol/L (136-145); Total Protein 5.9 g/dL (6.4-8.2)
[2022-07-21] MEDS: Bisacodyl 5 MG TABEC PO (11:05)
[2022-07-21] MEDS: Bisacodyl 10 MG SUPP PR (11:05)
--- NOTE | 2022-07-21 12:28 | NUR.NOTE ---
Nursing Note: Patient rang call mckeon at this time and NICKY Vu answered call mckeon. When Mirella entered the room she came over the radio and asked for this RN to enter the room. This RN entered the room and the patient states I choked on my soup. This patient is leaning forward in her chair coughing while this RN assess the patient. Patient states I'm fine, it just went down the wrong tube. This is the first time this has happened to me. This RN encouraged patient to cough and deep breathe at this time. Audible wheezes heard at this time. Charge nurse made aware of possible aspiration.
--- NOTE | 2022-07-21 13:10 | CMPROGNOTE_ITS ---
- If Service Date Differs Date of service: 07/21/22 Time of Service: 13:10 Care Management Progress Note S/O: Discharge anticipated for today, however due to persistent nausea impacting PO intake, pain, sleep and reports of significant weakness, anticipate Michelle will remain at [facility] through the weekend. Labs ordered, as well as abdominal xray. CM continues to follow. A: 87 year old female admitted to [facility] 07/18/22 for Left Knee DJD P: Michelle will likely return home with new orders for [facility]. Her friends will be staying with her, per report. She will follow up with Ortho, her PCP and discharge plan of care and transport via private vehicle with family/friend. CM will continue to follow.
[2022-07-21] MEDS: Normal Saline 1,000 ML 1000 ML IV (13:31)
--- NOTE | 2022-07-21 14:53 | PT.INTREAT ---
Date of service: 07/21/22 Time of Service: 15:53 PT Notes Visit Reasons: Left Knee DJD Physical Therapy Inpatient Treatment Note Date: 07/20/2022 Precautions: Fall. Standard. WBAT on L LE with AD. Subjective: Unsure of whether she can manage at home in her current status. Considering short term SNF placement now before going home. Anxious about going home and failing. Objective: General Observation: Cryo/Cuff on left knee. Mental Status: Alert and oriented as to person, place, time, and purpose. Able to pay attention, focus, and respond appropriately. Pain: 4-5/10 with ambulation activity Vital Signs: WNL both monitored by nursing staff Bed Mobility/Transfers: Supine to sit stand by assist Sit to supine stand by assist Sit to stand stand by assist with FWW Stand to sit stand by assist with FWW Bed to reclining chair stand by assist with FWW Reclining chair to bed stand by assist with FWW Gait: Instructed patient with level surface ambulation of 25 feet + 10 feet + 10 feet requiring contact-guard assist. More decreased. Step height decreased. Step length decreased.? Needed 3 seated rest due to fatigue and pain report. THERA EX: Gluteal sets x 10 Quadriceps sets x 10 Ankle DF/PF x 10 Balance: Static Sitting: Normal Dynamic Sitting: Normal Static Standing: Fair Dynamic Standing: Fair Assessment: Poor self-reliance limiting progress towards goals. Nausea and overall feeling of fatigue limiting level of participation. Pain continues to limit activity tolerance. Patient will benefit from short-term rehab placement to allow her to slowly make consitent gains according to her pace. DISCHARGE RECOMMENDATIONS: [] ? Home with no services [] [] ? Home with services []? [] ? Home with outpatient PT [] [] ? SNF for continued rehabilitation [] [] ? [facility] [] [] ? SNF versus LTC based on ability to participate and progress [] [X] HH PT vs short-term rehab based on progress of patient towards goals TREATMENT CODE/TIME: Session 1--23854 x 28 minutes beginning at 9:18 PM. Session 2--00520 x 15 minutes, 42313 x 9 minutes beginning at 14:53 PM.
[2022-07-21] MEDS: Normal Saline 1,000 ML 100 ML IV (15:40)
[2022-07-21 15:56] LABS: Bilirubin Negative (Negative); Blood Negative (Negative); Clarity Clear (Clear); Glucose Negative (Negative); Ketones Negative (Negative); Leukocyte Esterase Negative (Negative); Nitrite Negative (Negative); Specific Gravity 1.015 (1.005-1.025); Urobilinogen 0.2 EU/dL (Up TO 0.2); pH 5.5 (5-8)
[2022-07-21 16:28] LABS: Lab Add On Test DONE
[2022-07-21 16:47] LABS: NT-proBNP 3701 pg/mL (<300)
[2022-07-21 18:33] LABS: Anion Gap 8.1 mmol/L (3-11); BUN 46 mg/dL (7-18); CO2 23.9 mmol/L (21.0-32.0); CREATININE 2.3 mg/dL (0.55-1.02); Calcium 8.2 mg/dL (8.5-10.1); Chloride 96 mmol/L (98-107); Estimated GFR 20.32 (mL/min/1.73m2); Glucose 110 mg/dL (74-106); Potassium 4.9 mmol/L (3.5-5.1); Sodium 128 mmol/L (136-145)
--- NOTE | 2022-07-21 20:37 | W.MEDCONSULT ---
Date of service: 07/21/22 Time of Service: 20:38 Assessment and Plan Assessment and plan (1) Acute kidney injury: Status: Acute Assessment and plan: Likely prerenal azotemia exacerbated by use of NSAIDs for pain control. Of note her urinalysis was bland with the specific gravity 1.015 and negative for protein blood nitrites or leukocyte Estrace. Her BUN and creatinine are disproportionately elevated with a BUN of 46 and creatinine 2.3 which is a ratio 20:1 consistent with prerenal azotemia. I performed a bedside POCUS exam of the kidneys that did not see any acute hydronephrosis. Her kidneys are on the small side bilaterally. Bedside POCUS exam of her heart showed that her RV is not dilated and demonstrated normal systolic function. Likewise her LV function appears to be normal she does have LVH and more than likely has some component of diastolic heart failure on a chronic basis. Her right atrium is dilated but I suspect this is due to tricuspid regurgitation from her indwelling permanent pacemaker wire. I think clinically she could still benefit from continued IV fluids. She does not appear to be in any overt heart failure at this time. I would continue gentle IV fluid hydration until she is taking adequate oral intake. I would avoid any NSAIDs or any other nephrotoxic medications. If she will tolerate having the hernandez left in place, this would assist us in assessing for adequate urine response to iv fluids. Her hernandez at present has about 300 mL in the bag. I am not sure whether this is the entire amount since the hernandez was placed this afternoon. History of Present Illness History of Present Illness Chief Complaint: najma Narrative: 87-year-old female with a history of osteoarthritis, bpd, hypothyroidism, status post permanent pacemaker for unclear diagnosis other than history of recurrent syncope, underwent left total knee arthroplasty because of intractable left knee pain from osteoarthritis and valgus deformity. This was performed on 07/18/2022. Preoperatively she denied any history of stroke or myocardial infarction or symptoms of angina or CHF. Postoperatively she has had poor oral intake with some postoperative nausea. Pain has been controlled with Celebrex along with narcotic analgesics and her usual gabapentin. Postoperatively she did been receiving some IV fluid boluses for low urine outputs associated with some mild postoperative hypotension. Systolic blood pressures postoperatively were running in the mid to high 80s upwards into the low 90s. With diastolic pressures running in the 40s to 50s. Today her pressures been somewhat better running in the low to mid 90s systolic with diastolic readings in the mid 50s to low 60s. Patient denies any chest pain or pressure or dyspnea. Follow-up labs were checked today she is mildly anemic postoperatively with a hemoglobin 10.2 g which is not unusual for TKA. Her BNP showed a low sodium of 127 and repeated this evening was 128. BUN/creatinine were elevated today at 46 and 2.4 which is up from her baseline of 21 and 0.9 preoperatively. proBNP was checked earlier today and found to be elevated at 3700. I was asked to consult on her case to assess whether she was in acute congestive heart failure and to assist with treatment of her NAJMA. PFSH All Active Problems Acute kidney injury (Acute) Nausea after anesthesia (Acute) Primary osteoarthritis of left knee (Acute) s/p TKA: 07/18/22 Steroid injection: 03/27/2022 Osteoarthritis of knees, bilateral (Chronic) Left knee - Depo-Medrol injection: 03/27/22 Cellulitis (Acute) Chronic diarrhea (Acute) UTI (urinary tract infection) (Acute) Depressive disorder (Chronic 08/26/81) & ANXIETY; SERTRALINE 06/2011; JENNA 10/10/2007 Benign essential hypertension (Acute 08/26/83) Chest pain (Acute 11/23/11) Herpes zoster (Acute 11/23/11) Knee pain (Acute 03/19/15) Syncope and collapse (Acute 11/23/11) Trigeminal herpes zoster (Acute 04/23/17) 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) Vitamin B deficiency (Chronic 08/26/90) Sleep disturbance, unspecified (Chronic 11/23/11) Osteopenia (Chronic 05/11/15) DEXA 04/2015 Nocturia more than twice per night (Chronic 06/26/17) Knee pain, left (Chronic 07/05/15) 12/2004 x-ray mild spurring; 02/02/17 mod DJD, nafisa lateral component Hypothyroidism (Chronic 05/26/87) Hyperlipidemia (Chronic 11/23/11) 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 Patient requested a refill of amlodipine, which we sent. She can follow-up routinely for six-month blood pressure checks. Chronic diarrhea (Chronic 03/09/00) GI consult 2002, responded to augmentin 875/125 BID for bacterial overgrowth; failed to respond to Amox 2004 but did in 2007. 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 Palafox, Podiatry 1993 H/O left breast biopsy H/O: hysterectomy (~08/26/70) History of cataract surgery (05/13/18) Open Carpal Tunnel release (08/27/79) bilateral CTS surg, [place], [place] & [place], [place] Pacemaker (08/10/98[place] [facility] [place] [facility] Replaced Dr. Forde 04/03/13 Family History Mother , (smoker), cause IL at age 72. Myocardial infarct COPD (chronic obstructive pulmonary disease) Alcohol abuse Father , 52 Myocardial infarct Smoker Alcohol abuse Sister , age 80 Diabetes Osteoporosis Arthritis Myocardial infarct Sister , 63, angioplasty, dies of [place] Myocardial infarct Brother , 74, CABG age 58 of lung ca Alcohol abuse Lung cancer Brother , 52 Myocardial infarct Other Hyperlipidemia Social History Smoking/Tobacco Use Status: Never Smoking risk assessment performed?: Yes Alcohol Intake: former Year quit: 1986 Drug use: Never Substance use type: does not use Adopted: No Foster care: No Housing: house Number of Children: 6 Communication Needs: None current occupation: retired [employer] Pets and animals: No Current gender identity: female Other: support from 108 pen pals over country, Son Raul [place] What is your relationship status?: Panel score (0-1 are the most socially isolated patients): 0 What type of physical activity do you participate in: none Seatbelt use: always Drive intox or ride w/intox local 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 I explained to her that the Hernandez cath was placed that we could more accurately assess her urine output given her lab work showed acute renal injury. Lungs are clear to auscultation Heart is regular no appreciable murmur rub Abdomen is obese soft and nontender Lower extremities no peripheral edema or cyanosis Results Last Vital Signs Temp 35.5 C L 07/21/22 15:38 Pulse 60 07/21/22 15:38 Resp 16 07/21/22 15:38 BP 95/62 L 07/21/22 15:38 Pulse Ox 94 07/21/22 15:38 Labs Result diagrams: 07/21/22 09:50 07/21/22 18:06 Labs: Laboratory Results - last 24 hr 07/21/22 07/21/22 07/21/22 09:50 09:50 09:50 WBC 8.42 RBC 2.99 L Hgb 10.2 L Hct 31.0 L MCV 104 H MCH 34.1 H MCHC 32.9 RDW 13.8 Plt Count 183 MPV 10.4 Sodium 127 L Potassium 5.0 Chloride 94 L Carbon Dioxide 27.2 Anion Gap 5.8 BUN 46 H Creatinine 2.4 H Est GFR (CKD-EPI 2020) 19.31 Glucose 103 Calcium 8.1 L Total Bilirubin 0.5 AST 18 ALT 8 L Alkaline Phosphatase 94 NT-Pro-B Natriuret Pep Total Protein 5.9 L Albumin 2.6 L Urine Color Urine Clarity Urine pH Ur Specific [place] Urine Protein Urine Ketones Urine Blood Urine Nitrite Urine Bilirubin Urine Urobilinogen Ur Leukocyte Esterase Urine Glucose Add-On Test Request DONE 07/21/22 07/21/22 07/21/22 09:50 15:47 18:06 WBC RBC Hgb Hct MCV MCH MCHC RDW Plt Count MPV Sodium 128 L Potassium 4.9 Chloride 96 L Carbon Dioxide 23.9 Anion Gap 8.1 BUN 46 H Creatinine 2.3 H Est GFR (CKD-EPI 2020) 20.32 Glucose 110 H Calcium 8.2 L Total Bilirubin AST ALT Alkaline Phosphatase NT-Pro-B Natriuret Pep 3701 H Total Protein Albumin Urine Color Yellow Urine Clarity Clear Urine pH 5.5 Ur Specific [place] 1.015 Urine Protein Negative Urine Ketones Negative Urine Blood Negative Urine Nitrite Negative Urine Bilirubin Negative Urine Urobilinogen 0.2 Ur Leukocyte Esterase Negative Urine Glucose Negative Add-On Test Request
--- NOTE | 2022-07-21 21:03 | POCUS_ITS ---
Pocus Exam Limited Cardiac Exam DATE OF EXAM: 07/21/22 TIME OF EXAM: 21:03 IS THIS A REPEAT EXAM DURING THIS ENCOUNTER: no REASON FOR EXAM: Hypotension VISUALIZED STRUCTURES: four chambers, LVOT, aortic valve, mitral valve, Interv entricular septum and IVC VIEW OBTAINED: Apical 4-Chamber (poorly visualized), Parasternal long-axis, Parasternal short-axis and Subxiphoid PERTINENT FINDINGS/IMPRESSION: IVC inspiratory collapsability and Other (dilated RA and presence of pacer wire in RV) Normal LV size and function w/ LVH; normal RV systolic function; dilated RA, pacer wire seen in RA and RV, normal appearing IVC Exam complete
[2022-07-21] MEDS: QUEtiapine 25 MG TAB PO (21:11)
[2022-07-21] MEDS: Gabapentin 300 MG CAP PO (21:12)
[2022-07-22] VITALS (7 sets, daily range): BP systolic 86–127; BP diastolic 52–85; PULSE 63–90; RESP 16–19; TEMP 36–36.9; O2SAT 91–98
[2022-07-22 00:50] LABS: Creatinine,Urine 88.98 mg/dL; Sodium, Urine 4 mmol/L
[2022-07-22] MEDS: OLANZapine 10 MG VIAL 2.5 MG IM ×2 (04:18→05:04)
[2022-07-22] MEDS: Water,Injection,Sterile 10 ML VIAL (04:22)
[2022-07-22] MEDS: LORazepam 2 MG/ML VIAL 1 MG IM (05:04)
--- NOTE | 2022-07-22 05:56 | NUR.NOTE ---
Vital signs taken by the [employer] at 3am, at 330, another [employer] went for rounds and found her with stains fo blood on gown, called PARKER Cotto to come to bedside. upon assessment, PARKER Cotto found out that IV was pulled out by patient, cryo cuff halway removed from knee, scds disconnected and pt attempting to pull out hernandez. Pt was having delusions that she is fine and can take care of herself, her parents and brother are coming over to pick her up. PARKER Cotto asked her where she is right now and the date today, patient answered that she is in another house and could not say the date and time. RN reoriented her that she is on the hospital right now in [facility] and it is 330 in the morning of the said date. Patient asked the RN and [employer] to go away and she does not need our help. Patient was tugging at her hernandez and RN and [employer] reminded her to keep the hernandez in, pt accussed staff of hurting her and wanted to kill her, pt wanted to sit up and attempted many times, RN and [employer] kept her safe at all times, reorienting her that she is in the hospital, she just had a surgery and needed to recover before discharge. Staff are taking care of her and not harming her. Pt repeatedly accussed staff of hurting her and wanted to kill her otherwise. PARKER Cotto, PARKER Jacobo, NICKY Huff, and NICKY Vega were witnesses of the accusations. MD ordered for zyprexa 2.5mg x 2 IM and Lorazepam 1mg x 1 for the patient to calm down. pt is still awake still attempting to sit up and states she wanted to go home. RN could not attempt to put another IV access and eventually get a blood sample for her because of her behavior. a staff at bedside to keep her safe at all times Nursing Note:
--- NOTE | 2022-07-22 06:28 | NUR.NOTE ---
PARKER Cotto asked patient if we could put an IV on her and get blood for her blood works, patient said No, I know you are going to put something on me and would want to kill me, why do you need to kidnap me?. I reoriented again the patient that she is in the hospital and we are taking care of her t her recovery, but pt does not seem to understand,RN stayed with patient to prevent pt from doing harm and to keep her safe at all times:
--- NOTE | 2022-07-22 07:16 | W.PM.PROGNOT ---
Date of Service Date of service: 07/22/22 Time of Service: 07:17 Assessment and Plan Assessment and plan (1) Alcohol withdrawal delirium: Status: Acute Assessment and plan: We will once again discussed this with the hospitalist team. We will initiate an alcohol withdrawal protocol. Unfortunately, she is refusing the IV. We do have IM and p.o. options, however, I do not want a make her more agitated. Therefore, we will continue to discuss this with Michelle in hopes that she will allow placement of a new IV. (2) Acute kidney injury: Status: Acute Assessment and plan: KAREN likely from anti-inflammatories as well as surgery. Since Joyce catheter has been placed there is been significant urine output which is clear. Awaiting morning labs, although Michelle is refusing currently. If there has been improvement with her creatinine then we can continue with oral rehydration rather than IV. Once again, I appreciate the hospitalist consult and will defer to their advice and recommendations. (3) Nausea after anesthesia: Status: Acute Assessment and plan: Michelle did have a bowel movement last night. She currently complains of no nausea although she denies being hungry and does not want to eat. X-ray of her abdomen did not show any concerning features. We will continue with some bowel medications if she tolerates them to continue to promote a more regular bowel pattern. (4) Primary osteoarthritis of left knee: Status: Acute Assessment and plan: Status post left knee replacement. Mobilizing with nursing. She currently does not complain of pain although she has had pain. She has been able to mobilize with minimal assistance and I do believe her knee is actually progressing quite well. Unfortunately complicated by the above diagnoses. Subjective Subjective Interval history since last seen: Yesterday Michelle continued to complain of nausea and generalized pain and weakness. Laboratory testing was performed which showed an acute kidney injury with a creatinine of 2.4 along with some hyponatremia with sodium 127. Given her age and unclear cardiac history, I did ask for a hospitalist consultation. Joyce catheter was placed to monitor her input and output. Please see Dr. Figueroa's note, however, he concluded that this most likely is just a prerenal azotemia from acute kidney injury from surgery and anti-inflammatories. The elevated BNP may be her baseline but also falsely elevated due to the current kidney status. Unfortunate, overnight last night her mild dementia and cognitive impairment was exacerbated with significant agitation and delusions. She is now claiming that we are all trying to kill her. She has removed her IV and is refusing replacement. She is also refusing all medications since we are trying to kill her. I did call her son to discuss this with him. In preoperative evaluations there was little mention of any significant alcohol consumption. However, he reports that she does drink quite a bit at home, especially since her . She still refuses this but this would explain some of her decline around day 3 related to alcohol withdrawal. Exam Narrative Exam Narrative: Sitting up in the hospital bed. Alert. Oriented to person. Not oriented to time or place. She asked for her mom and her brother at times. She asked to go to the porch. Evaluation of the left leg shows no significant swelling. Dressing is clean dry and intact. The leg is fully extended. The knee is stable to varus and valgus stress. She is able to actively dorsiflex and plantarflex the left ankle as well as extend and flex the great toe. Objective Last Vital Signs Temp 36.5 C 07/22/22 02:55 Pulse 63 07/22/22 02:55 Resp 16 07/22/22 02:55 BP 127/85 07/22/22 02:55 Pulse Ox 92 07/22/22 02:55 Laboratory Results - last 24 hr 07/21/22 07/21/22 07/21/22 09:50 09:50 09:50 WBC 8.42 RBC 2.99 L Hgb 10.2 L Hct 31.0 L MCV 104 H MCH 34.1 H MCHC 32.9 RDW 13.8 Plt Count 183 MPV 10.4 Sodium 127 L Potassium 5.0 Chloride 94 L Carbon Dioxide 27.2 Anion Gap 5.8 BUN 46 H Creatinine 2.4 H Est GFR (CKD-EPI 2020) 19.31 Glucose 103 Calcium 8.1 L Total Bilirubin 0.5 AST 18 ALT 8 L Alkaline Phosphatase 94 NT-Pro-B Natriuret Pep Total Protein 5.9 L Albumin 2.6 L Urine Color Urine Clarity Urine pH Ur Specific [place] Urine Protein Urine Ketones Urine Blood Urine Nitrite Urine Bilirubin Urine Urobilinogen Ur Leukocyte Esterase Ur Random Creatinine Ur Random Sodium Urine Glucose Add-On Test Request DONE 07/21/22 07/21/22 07/21/22 09:50 15:47 18:06 WBC RBC Hgb Hct MCV MCH MCHC RDW Plt Count MPV Sodium 128 L Potassium 4.9 Chloride 96 L Carbon Dioxide 23.9 Anion Gap 8.1 BUN 46 H Creatinine 2.3 H Est GFR (CKD-EPI 2020) 20.32 Glucose 110 H Calcium 8.2 L Total Bilirubin AST ALT Alkaline Phosphatase NT-Pro-B Natriuret Pep 3701 H Total Protein Albumin Urine Color Yellow Urine Clarity Clear Urine pH 5.5 Ur Specific [place] 1.015 Urine Protein Negative Urine Ketones Negative Urine Blood Negative Urine Nitrite Negative Urine Bilirubin Negative Urine Urobilinogen 0.2 Ur Leukocyte Esterase Negative Ur Random Creatinine Ur Random Sodium Urine Glucose Negative Add-On Test Request 07/22/22 00:01 WBC RBC Hgb Hct MCV MCH MCHC RDW Plt Count MPV Sodium Potassium Chloride Carbon Dioxide Anion Gap BUN Creatinine Est GFR (CKD-EPI 2020) Glucose Calcium Total Bilirubin AST ALT Alkaline Phosphatase NT-Pro-B Natriuret Pep Total Protein Albumin Urine Color Urine Clarity Urine pH Ur Specific [place] Urine Protein Urine Ketones Urine Blood Urine Nitrite Urine Bilirubin Urine Urobilinogen Ur Leukocyte Esterase Ur Random Creatinine 88.98 Ur Random Sodium 4 Urine Glucose Add-On Test Request
[2022-07-22] MEDS: PHENobarbital 130 MG/ML VIAL 300 MG IM (07:51)
--- NOTE | 2022-07-22 11:01 | CMPROGNOTE_ITS ---
- If Service Date Differs Date of service: 07/22/22 Time of Service: 11:01 Care Management Progress Note S/O: Im[facility] family meeting per request-in family waiting room with Aubrey and his two sisters. CM answered all questions, providing psychoeducation central to navigating advance directives and court process for DPOA and Guardianship. The children report Michelle does not have friends staying with her, and Acacia is her microsoft exchange administrator and does her errands. Dr. Richey joined meeting reviewed planning; Michelle would like to go to SNF for short term stay prior to returning home; referrals faxed to [facility] [place] [place] [place] for [place]. CM continues to follow. A: 87 year old female admitted to [facility] for Left Knee DJD, now being closely monitored and treated for ETOH withdrawal P: SNF for short term stay prior to returning home; referrals faxed to [facility] [place], [place] [facility] [place] for review.
[2022-07-22 11:02] LABS: Anion Gap 5.4 mmol/L (3-11); BUN 45 mg/dL (7-18); CO2 25.6 mmol/L (21.0-32.0); CREATININE 2.3 mg/dL (0.55-1.02); Calcium 8.1 mg/dL (8.5-10.1); Chloride 101 mmol/L (98-107); Estimated GFR 20.32 (mL/min/1.73m2); Glucose 103 mg/dL (74-106); Potassium 4.7 mmol/L (3.5-5.1); Sodium 132 mmol/L (136-145)
--- NOTE | 2022-07-22 11:21 | PT.INNT ---
PT Notes Visit Reasons: Left Knee DJD PT on hold today per nurse as she is detoxing and is heavily medicated. I will check in with her tomorrow am.
[2022-07-22] MEDS: PHENobarbital 130 MG/ML VIAL 230 MG IM ×2 (11:22→14:06)
[2022-07-22 11:44] LABS: Magnesium 2.3 mg/dL (1.8-2.4); PHOSPHORUS 3.7 mg/dL (2.6-4.7)
--- NOTE | 2022-07-22 14:30 | PGE_ITS ---
Date of Service Date of service: 07/22/22 Time of Service: 14:30 Assessment and Plan Assessment and plan (1) Alcohol withdrawal delirium: Status: Acute Assessment and plan: Continue assessment withdrawal using RASS scoring and phenobarbital protocol. Give thiamine and folic acid and multivitamin. Professional time spent interviewing and examining patient, discussion of goals of care with hospital team (care management, nursing and consulting professionals) was 30 minutes. (2) Acute kidney injury: Status: Acute Assessment and plan: Still feel that she has prerenal azotemia and possibly superimposed ATN because by use of NSAID. Continue gentle IV fluid hydration monitoring her urine output and monitoring daily BMP. (3) Bipolar disorder, in full remission, most recent episode mixed: Status: Chronic Assessment and plan: Her initial agitated behavior yesterday was confusing because of her underlying history of bipolar disorder however seems to be more clear that she is probably in acute alcohol withdrawal. We will monitor behavior on the phenobarbital protocol. (4) Primary osteoarthritis of left knee: Status: Acute Assessment and plan: Avoid use of NSAIDs in the setting of KAREN. Continued treatment with low-dose narcotics as well as Tylenol and topical lidocaine. Continue ice and elevation. Management as per orthopedic service. (5) Discharge planning issues: Status: Acute Assessment and plan: Patient will likely need short-term SNF placement for rehab once her acute medical issues are resolved. Patient remains full code Subjective Subjective Interval history since last seen: Michelle has become paranoid and delirious this morning. Dr. Richey question her son about her drinking habits apparently she is a closet drinker. Concerns been raised that she may be going into acute alcohol withdrawal. Dr. Richey tried her on a dose of lorazepam this morning which had no effect. I have begun her on acute alcohol withdrawal protocol using phenobarbital. Patient was combative this morning pulled out her IVs. This afternoon she is more sedate and somnolent from the phenobarbital. We have asked nursing staff to reinstitute her IV and IV fluids. Exam Narrative Exam Narrative: Patient is somnolent but will arouse to tactile stimulation with some purposeful movement and pushing examiner away and grimacing. Lungs are clear to auscultation anteriorly Heart is regular rate and rhythm Abdomen soft nondistended nontender Extremities without peripheral cyanosis or edema. Left knee is in a brace and has bandages. However no edema of her feet and no cyanosis. Objective Last Vital Signs Temp 36.0 C L 07/22/22 11:29 Pulse 77 07/22/22 11:29 Resp 16 07/22/22 11:29 BP 86/52 L 07/22/22 11:29 Pulse Ox 93 07/22/22 11:29 Laboratory Results - last 24 hr 07/21/22 07/21/22 07/21/22 09:50 09:50 15:47 Sodium Potassium Chloride Carbon Dioxide Anion Gap BUN Creatinine Est GFR (CKD-EPI 2020) Glucose Calcium Phosphorus Magnesium NT-Pro-B Natriuret Pep 3701 H Urine Color Yellow Urine Clarity Clear Urine pH 5.5 Ur Specific [place] 1.015 Urine Protein Negative Urine Ketones Negative Urine Blood Negative Urine Nitrite Negative Urine Bilirubin Negative Urine Urobilinogen 0.2 Ur Leukocyte Esterase Negative Ur Random Creatinine Ur Random Sodium Urine Glucose Negative Add-On Test Request DONE 07/21/22 07/22/22 07/22/22 18:06 00:01 10:45 Sodium 128 L 132 L Potassium 4.9 4.7 Chloride 96 L 101 Carbon Dioxide 23.9 25.6 Anion Gap 8.1 5.4 BUN 46 H 45 H Creatinine 2.3 H 2.3 H Est GFR (CKD-EPI 2020) 20.32 20.32 Glucose 110 H 103 Calcium 8.2 L 8.1 L Phosphorus Magnesium NT-Pro-B Natriuret Pep Urine Color Urine Clarity Urine pH Ur Specific [place] Urine Protein Urine Ketones Urine Blood Urine Nitrite Urine Bilirubin Urine Urobilinogen Ur Leukocyte Esterase Ur Random Creatinine 88.98 Ur Random Sodium 4 Urine Glucose Add-On Test Request 07/22/22 10:45 Sodium Potassium Chloride Carbon Dioxide Anion Gap BUN Creatinine Est GFR (CKD-EPI 2020) Glucose Calcium Phosphorus 3.7 Magnesium 2.3 NT-Pro-B Natriuret Pep Urine Color Urine Clarity Urine pH Ur Specific [place] Urine Protein Urine Ketones Urine Blood Urine Nitrite Urine Bilirubin Urine Urobilinogen Ur Leukocyte Esterase Ur Random Creatinine Ur Random Sodium Urine Glucose Add-On Test Request
[2022-07-22] MEDS: Normal Saline Flush 10 ML SYR IV (17:26)
[2022-07-22] MEDS: Lactated Ringers 1,000 ML 100 ML IV (17:26)
[2022-07-22] MEDS: PHENobarbital 130 MG/ML VIAL IM (23:10)
[2022-07-22] MEDS: PHENobarbital 130 MG/ML VIAL 260 MG IM (23:41)
[2022-07-23] VITALS (10 sets, daily range): BP systolic 99–126; BP diastolic 60–73; PULSE 64–95; RESP 14–20; TEMP 36.1–37.3; O2SAT 85–98
[2022-07-23] MEDS: PHENobarbital 130 MG/ML VIAL 260 MG IM ×3 (00:30→16:51)
[2022-07-23] MEDS: Lactated Ringers 1,000 ML 100 ML IV (03:37)
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
[2022-07-23 08:25] LABS: ALT 7 U/L (14-59); AST 22 U/L (15-37); Albumin 1.7 g/dL (3.4-5.0); Alkaline Phosphatase 98 U/L (46-116); BUN 32 mg/dL (7-18); Bilirubin, Direct 0.1 mg/dL (0.0-0.2); Bilirubin, Total 0.3 mg/dL (0.2-1.0); CREATININE 1.3 mg/dL (0.55-1.02); Calcium 7.8 mg/dL (8.5-10.1); Chloride 107 mmol/L (98-107); Glucose 83 mg/dL (74-106); Magnesium 2.2 mg/dL (1.8-2.4); PHOSPHORUS 2.6 mg/dL (2.6-4.7); Potassium 4.6 mmol/L (3.5-5.1); Sodium 137 mmol/L (136-145); Total Protein 4.7 g/dL (6.4-8.2)
--- NOTE | 2022-07-23 10:11 | W.PM.PROGNOT ---
Date of Service Date of service: 07/23/22 Time of Service: 10:11 Assessment and Plan Assessment and plan (1) Alcohol withdrawal delirium: Status: Acute Assessment and plan: CIWA scores have improved, continue to monitor (2) Acute kidney injury: Status: Acute Assessment and plan: Sodium and creatinine much improved, continue encourage oral intake and monitor urine output with Joyce (3) Nausea after anesthesia: Status: Acute Assessment and plan: No nausea at this time (4) Primary osteoarthritis of left knee: Status: Acute Assessment and plan: Status post left knee replacement. Clinically doing OK. Unfortunately complicated by the above diagnoses. Subjective Subjective Interval history since last seen: Sleeping, no complaints Exam Narrative Exam Narrative: Sleeping, breathing without issue, no apparent distress Evaluation of the left leg shows no significant swelling. Dressing is clean dry and intact. The leg is positioned in near?full extension. No signs of blood clot or infection. Objective Last Vital Signs Temp 97.9 F 07/23/22 06:38 Pulse 64 07/23/22 06:38 Resp 20 07/23/22 06:38 BP 99/60 L 07/23/22 06:38 Pulse Ox 98 07/23/22 06:38 Laboratory Results - last 24 hr 07/22/22 07/22/22 07/23/22 10:45 10:45 07:45 Sodium 132 L 137 Potassium 4.7 4.6 Chloride 101 107 Carbon Dioxide 25.6 26.0 Anion Gap 5.4 4.0 BUN 45 H 32 H Creatinine 2.3 H 1.3 H D Est GFR (CKD-EPI 2020) 20.32 40.30 Glucose 103 83 Calcium 8.1 L 7.8 L Phosphorus 3.7 2.6 Magnesium 2.3 2.2 Total Bilirubin 0.3 Conjugated Bilirubin 0.1 AST 22 ALT 7 L Alkaline Phosphatase 98 Total Protein 4.7 L Albumin 1.7 L
--- NOTE | 2022-07-23 12:20 | PT.INNT ---
PT Notes Visit Reasons: Left Knee DJD on hold per nursing due to being sedated.
--- NOTE | 2022-07-23 13:17 | NUR.NOTE ---
Patient waking up this afternoon, calmer, still drowsy, answers questions, still confused as to timen and place. She allows oral and facial care. She converses with her daughter, titrating to room air, still has tendencies to desat. on constant monitoring. Nursing Note:
[2022-07-23] MEDS: Lactated Ringers 1,000 ML 80 ML IV (14:26)
[2022-07-23 15:09] LABS: Abs Immature Grans 0.05 10^3/uL (0.0-0.06); HCT 28.7 % (36.0-46.0); HGB 9.4 g/dL (11.2-15.7); MCH 33.6 pg (27.0-33.0); MCHC 32.8 % (32.0-36.0); MCV 103 fL (80-95); Platelet Count 212 10^3/uL (130-400); RDW-SD 53.3 fL; WBC 5.54 10^3/uL (4.4-10.8)
[2022-07-23 16:06] LABS: Absolute Basophil Count 0.06 10^3/uL (0.0-0.2); Absolute Eosinophil Count 0.22 10^3/uL (0.0-0.7); Absolute Lymphocyte Count 0.44 10^3/uL (1.2-3.4); Absolute Monocyte Count 0.55 10^3/uL (0.1-0.8); Absolute Neutrophil Count 4.27 10^3/uL (1.2-6.7); Bands % 4
[2022-07-23 16:07] LABS: Diff Comment Manual Differential; RBC Morphology Normal
--- NOTE | 2022-07-23 16:39 | W.PM.PROGNOT ---
Date of Service Date of service: 07/23/22 Time of Service: 16:39 Assessment and Plan Assessment and plan (1) Alcohol withdrawal delirium: Status: Acute Assessment and plan: It has been presumed that her acute mental status changes were due to alcohol withdrawal but she has not improved w/ the phenobarbital. I would not push any further doses of phenobarbital at this time as she is now at a level of 20 mg/kg IBW. I think if she continues acting out then I think that further evaluation w/ CT of the head to rule out CVA and then trial of titrating her seroquel dose. She has known dementia and probably she is experiencing hospital psychosis. Professional time spent interviewing and examining patient, discussion of goals of care with hospital team (care management, nursing and consulting professionals) was 20 minutes. (2) Acute kidney injury: Status: Acute Assessment and plan: KAREN is improving. I would continue iv fluids overnight and tomorrow if she is improving in her mental status and taking po well then we can stop her iv fluids. (3) Bipolar disorder, in full remission, most recent episode mixed: Status: Chronic Assessment and plan: As she has not responded to the phenobarbital, I think this calls into question whether or not she is actually going through alcohol withdrawal. I think that titration of her Seroquel would be the next step in controlling her behavior. She has not exhibited any focal signs of an acute CVA such as dysarthric speech or focal paresis. (4) Primary osteoarthritis of left knee: Status: Acute Assessment and plan: Avoid use of NSAIDs in the setting of KAREN. Continued treatment with low-dose narcotics as well as Tylenol and topical lidocaine. Continue ice and elevation. Management as per orthopedic service. (5) Discharge planning issues: Status: Acute Assessment and plan: Patient will likely need short-term SNF placement for rehab once her acute medical issues are resolved. Patient remains full code Subjective Subjective Interval history since last seen: Michelle is still delirious, and at times combative, swinging at the staff, pulling her oxygen mask off. It is unclear how much is her underlying dementia being brought out by her acute illness and hospitalization and how much is acute alcohol withdrawal. She been medicated w/ phenobarbital and is now at her soft stop of 20 mg/kg of IBW (total of 1930 mg). Her renal fxn is recovering. Her urine output has improved to 1500 mL yesterday and so far for today she has made another 1200 mL. BUN and creatinine have improved to 32 and 1.3. As she is still not taking adequate oral intake in light of her acute mental status changes, I would continue her iv fluids for now. Exam Narrative Exam Narrative: Patient was sleeping when I went into the room to examine her. She was not wearing her oxygen mask and her SPO2 was 85%. When nursing tried to put her oxygen mask on she ripped it off and tossed it across the bed. When I attempted to examine her she pushed me away. Objective Last Vital Signs Temp 37.3 C 07/23/22 15:22 Pulse 90 07/23/22 15:22 Resp 14 07/23/22 15:22 BP 120/73 07/23/22 15:22 Pulse Ox 85 L 07/23/22 16:14 Laboratory Results - last 24 hr 07/23/22 07/23/22 07:45 15:03 WBC 5.54 RBC 2.80 L Hgb 9.4 L Hct 28.7 L MCV 103 H MCH 33.6 H MCHC 32.8 RDW 14.0 Plt Count 212 MPV 10.0 Immature Gran % 0.0 Neutrophils % 73.0 Band Neutrophils % 4 Lymphocytes % 8.0 Monocytes % 10.0 Eosinophils % 4.0 Basophils % 1.0 Nucleated RBC % 0.0 Absolute Neutrophils 4.27 Absolute Lymphocytes 0.44 L Absolute Monocytes 0.55 Absolute Eosinophils 0.22 Absolute Basophils 0.06 RBC Morphology Normal Sodium 137 Potassium 4.6 Chloride 107 Carbon Dioxide 26.0 Anion Gap 4.0 BUN 32 H Creatinine 1.3 H D Est GFR (CKD-EPI 2020) 40.30 Glucose 83 Calcium 7.8 L Phosphorus 2.6 Magnesium 2.2 Total Bilirubin 0.3 Conjugated Bilirubin 0.1 AST 22 ALT 7 L Alkaline Phosphatase 98 Total Protein 4.7 L Albumin 1.7 L
[2022-07-23 17:02] LABS: Osmolality, Urine 367 mOsm/kg (150-1150)
[2022-07-23] MEDS: Promethazine 25 MG TAB PO (21:13)
[2022-07-23] MEDS: QUEtiapine 25 MG TAB PO (21:14)
[2022-07-23] MEDS: Aspirin E.C. 81 MG TABEC PO (21:14)
[2022-07-23] MEDS: Gabapentin 300 MG CAP PO (21:15)
[2022-07-24 03:32] VITALS: BP 126/70; PULSE 94; RESP 20; TEMP 36.3; O2SAT 96
[2022-07-24] MEDS: Lactated Ringers 1,000 ML 65 ML IV (04:53)
[2022-07-24] MEDS: Levothyroxine 150 MCG TAB 300 MCG PO (05:42)
[2022-07-24 07:07] VITALS: BP 137/85; PULSE 64; RESP 22; TEMP 36.5; O2SAT 94
[2022-07-24 07:20] LABS: Anion Gap 5.5 mmol/L (3-11); BUN 20 mg/dL (7-18); CO2 28.5 mmol/L (21.0-32.0); CREATININE 0.9 mg/dL (0.55-1.02); Calcium 7.9 mg/dL (8.5-10.1); Chloride 106 mmol/L (98-107); Estimated GFR 62.65 (mL/min/1.73m2); Glucose 76 mg/dL (74-106); Potassium 4.5 mmol/L (3.5-5.1); Sodium 140 mmol/L (136-145)
--- NOTE | 2022-07-24 09:28 | CMPROGNOTE_ITS ---
- If Service Date Differs Date of service: 07/24/22 Time of Service: 09:28 Care Management Progress Note S/O: Michelle was sleeping when CM met with her. CM met with her two daughters and son in law in the family meeting room to discuss the plan of care. Her daughter, Raul, reported that she applied for emergency guardianship for Bella, and is waiting to hear from the court regarding approval. She stated that the family's first choice for rehab is for Bella to be close to them, near [place]. Carline cook stated that she knows that her mother wishes to remain home in [facility], and the family is supportive of her plan to return home after short term rehab. She is willing to fill out a oysterman IDANIA application, if indicated, to receive more support at home for Bella. Per MD, Bella is not yet medically cleared. CM will continue to follow. A: 87 year old female admitted to [facility] for Left Knee DJD, now being closely monitored and treated for ETOH withdrawal P: SNF for short term stay prior to returning home; referrals faxed to [facility] [place] for [place].
--- NOTE | 2022-07-24 10:37 | W.PM.PROGNOT ---
Date of Service Date of service: 07/24/22 Time of Service: 10:37 Assessment and Plan Assessment and plan (1) Delirium: Status: Acute Assessment and plan: Likely metabolic encephalopathy secondary to acute illness superimposed over underlying bipolar disorder and possible underlying dementia. Continue nighttime Seroquel. I did add a morning dose of Seroquel but patient is too somnolent to take this at this time. Phenobarbital has been discontinued. I do not feel that her delirium was secondary to alcohol withdrawal as she did not respond to the phenobarbital. Professional time spent interviewing and examining patient, discussion of goals of care with hospital team (care management, nursing and consulting professionals) was 20 minutes. (2) Acute kidney injury: Status: Resolved Assessment and plan: KAREN is resolved. Patient is mildly edematous. I will give her a one-time dose of IV Lasix and I stopped her IV fluids. (3) Bipolar disorder, in full remission, most recent episode mixed: Status: Chronic Assessment and plan: Patient may benefit from titration of her Seroquel dose however at present time she is too somnolent to take any Seroquel this morning. She did take her nighttime Seroquel last night. (4) Primary osteoarthritis of left knee: Status: Acute Assessment and plan: Avoid use of NSAIDs in the setting of KAREN. Continued treatment with low-dose narcotics as well as Tylenol and topical lidocaine. Continue ice and elevation. Management as per orthopedic service. (5) Discharge planning issues: Status: Acute Assessment and plan: Patient will likely need short-term SNF placement for rehab once her acute medical issues are resolved. Patient remains full code Subjective Subjective Interval history since last seen: Patient is very somnolent this morning. Her phenobarbital has been stopped as she reached the soft stop of 20 mg/kg yesterday. I do not feel that her agitation was d/t alcohol withdrawal as she did not respondt to the phenobarbital. More likely this is her BPD and some dementia w/ delirium superimposed by her acute illness/hospitalization. Her renal fxn has improved but now she has some rales. Exam Narrative Exam Narrative: Somnolent elderly female who does arouse with tactile and verbal stimulation but does not sustain attention. Lungs are clear anteriorly posterior showed bibasilar rales Heart is regular Abdomen soft nontender nondistended Lower extremities with 1+ pitting edema, left knee there is no erythema no drainage, pedal pulses intact no cyanosis Neuro exam patient is somnolent but arousable no focal deficits. No facial asymmetry. Objective Last Vital Signs Temp 36.5 C 07/24/22 07:07 Pulse 64 07/24/22 07:07 Resp 22 07/24/22 07:07 BP 137/85 07/24/22 07:07 Pulse Ox 94 07/24/22 07:07 Laboratory Results - last 24 hr 07/22/22 07/23/22 07/24/22 00:01 15:03 06:35 WBC 5.54 RBC 2.80 L Hgb 9.4 L Hct 28.7 L MCV 103 H MCH 33.6 H MCHC 32.8 RDW 14.0 Plt Count 212 MPV 10.0 Immature Gran % 0.0 Neutrophils % 73.0 Band Neutrophils % 4 Lymphocytes % 8.0 Monocytes % 10.0 Eosinophils % 4.0 Basophils % 1.0 Nucleated RBC % 0.0 Absolute Neutrophils 4.27 Absolute Lymphocytes 0.44 L Absolute Monocytes 0.55 Absolute Eosinophils 0.22 Absolute Basophils 0.06 RBC Morphology Normal Sodium 140 Potassium 4.5 Chloride 106 Carbon Dioxide 28.5 Anion Gap 5.5 BUN 20 H Creatinine 0.9 Est GFR (CKD-EPI 2020) 62.65 Glucose 76 Calcium 7.9 L Urine Osmolality 367
[2022-07-24 11:51] VITALS: O2SAT 88
[2022-07-24] MEDS: Normal Saline Flush 10 ML SYR IV (11:51)
[2022-07-24] MEDS: Furosemide 20 MG/2 ML VIAL IVP (11:51)
[2022-07-24 13:39] VITALS: BP 143/88; PULSE 64; RESP 14; TEMP 36; O2SAT 95
[2022-07-24 14:52] VITALS: BP 131/73; PULSE 65; RESP 21; TEMP 35.8; O2SAT 98
--- NOTE | 2022-07-24 14:59 | PT.INTREAT ---
Date of service: 07/24/22 Time of Service: 09:37 PT Notes Visit Reasons: Left Knee DJD Inpatient Physical Therapy Treatment Note [facility] Date: 07/24/2022 PRECAUTIONS: Fall, activity as tolerated, WBAT L, confusion SUBJECTIVE: Bella is not appropriate in responses, however is able to relay something isn't right with me something happened to me. OBJECTIVE: PAIN: No c/o pain BED MOBILITY/TRANSFERS Rolling L/R: Max A with HOB flat Supine-sit: Max A x2 Sit-supine: Max A x2 Sit-stand: Not attempted Stand-sit: Not attempted GAIT: Patient not appropriate for gait training at this time THEREX: Patient is unable to follow directions at this time. PROM into knee flexion and extension, hip flexion and extension, and hip adduction and abduction, without complaint. ASSESSMENT: Patient was able to participate, however she was not appropriate to attempt gait training due to her level of sedation and confusion. She demonstrates good passive range in L knee. PLAN: Continue with PROM to L knee, progress mobility as appropriate. TREATMENT CODE/TIME: Session 1: 23 minutes; 25462 x2 (09:37) Session 2: 15 minutes; [id number] (13:02)
--- NOTE | 2022-07-24 17:46 | PGE_ITS ---
Date of Service Date of service: 07/24/22 Time of Service: 12:30 Assessment and Plan Assessment and plan (1) Delirium: Status: Acute Assessment and plan: Michelle unfortunately has persistent delirium. This was thought to be attributed to alcohol withdrawal but may represent hospital induced delirium. It is unclear of the exact origin but she has had notable disorientation with paranoia and some delusions. It is unclear her full diagnosis of bipolar in the past and she also, per the family, drinks more than she reported. She is no longer having any phenobarbital requirements. Unfortunately, she is now quite somnolent. I will default to Dr. Quinonez and the hospitalist team for their input in the management of this. Continue to limit any sensorium altering age nts. It would be normal for her to have some pain and I did switch her pain medication to Nucynta from the stronger oxycodone if necessary. (2) Primary osteoarthritis of left knee: Status: Acute Assessment and plan: Status post left knee replacement. No acute issues. Unable to fully assess due to her altered mental status. She was mobilizing with nursing and with physical therapy as of Sunday morning. (3) Acute kidney injury: Status: Resolved Assessment and plan: Resolved Subjective Subjective Interval history since last seen: Michelle has had much less agitation but unfortunately has been even more somnolent. She has not received any additional phenobarbital since yesterday. When she was sat to the edge of the bed she was somewhat physical with nursing. She has refused any of her p.o. medications. Her vital signs have been stable except for some decreased oxygenation which does respond to oxygen. Additionally, her creatinine has completely resolved back to normal. Exam Narrative Exam Narrative: Sitting up in the hospital bed. Not alert. Not oriented. Evaluation of the left leg shows some swelling around the left knee. Dressings clean dry and intact. There is examination is limited due to altered mental status. Objective Last Vital Signs Temp 35.8 C L 07/24/22 14:52 Pulse 65 07/24/22 14:52 Resp 21 07/24/22 14:52 BP 131/73 07/24/22 14:52 Pulse Ox 98 07/24/22 14:52 Laboratory Results - last 24 hr 07/22/22 07/24/22 00:01 06:35 Sodium 140 Potassium 4.5 Chloride 106 Carbon Dioxide 28.5 Anion Gap 5.5 BUN 20 H Creatinine 0.9 Est GFR (CKD-EPI 2020) 62.65 Glucose 76 Calcium 7.9 L Urine Osmolality 367
[2022-07-24 19:05] VITALS: BP 170/69; PULSE 89; RESP 22; TEMP 36.7; O2SAT 95
[2022-07-24] MEDS: Aspirin E.C. 81 MG TABEC PO (21:12)
[2022-07-24] MEDS: Nystatin POWDER 60 GM JAR TP (23:36)
[2022-07-25] MEDS: LORazepam 0.5 MG TAB PO (00:09)
[2022-07-25 03:24] VITALS: PULSE 85; RESP 18; TEMP 36.7; O2SAT 94
[2022-07-25] MEDS: Levothyroxine 150 MCG TAB 300 MCG PO (05:29)
[2022-07-25] MEDS: Normal Saline Flush 10 ML SYR IV (05:30)
[2022-07-25 07:09] LABS: Anion Gap 9.7 mmol/L (3-11); BUN 14 mg/dL (7-18); CO2 27.3 mmol/L (21.0-32.0); CREATININE 0.7 mg/dL (0.55-1.02); Calcium 8.3 mg/dL (8.5-10.1); Chloride 103 mmol/L (98-107); Glucose 86 mg/dL (74-106); Potassium 4.4 mmol/L (3.5-5.1); Sodium 140 mmol/L (136-145)
[2022-07-25 07:34] VITALS: BP 165/79; PULSE 91; RESP 18; TEMP 37.2; O2SAT 91
--- NOTE | 2022-07-25 08:57 | W.PM.PROGNOT ---
Date of Service Date of service: 07/25/22 Time of Service: 08:57 Assessment and Plan Assessment and plan (1) Delirium: Status: Acute Assessment and plan: Likely metabolic encephalopathy secondary to acute illness superimposed over underlying bipolar disorder and possible underlying dementia. Unlikely this is alcohol withdrawal as she had adequate treatment w/ phenobarbital and still is encephalopathic Professional time spent interviewing and examining patient, discussion of goals of care with hospital team (care management, nursing and consulting professionals) was 15 minutes. (2) Metabolic encephalopathy: Status: Acute Assessment and plan: as above. As the patient is not taking her Seroquel, I will put her on trial of Zyprexa 2.5 mg IM. If she does well w/ a dose this morning then I will put her on twice a day dosing and hopefully we can get her on oral Zyprexa (3) Bipolar disorder, in full remission, most recent episode mixed: Status: Chronic Assessment and plan: change to Zyprexa (4) Acute kidney injury: Status: Resolved Assessment and plan: I stopped her iv fluids yesterday and gave her one time dose of lasix last night. She is not dyspneic, lungs are clear and her renal function is stable. At this time I would try to avoid further iv fluids if we can get her take adequate oral intake. (5) Primary osteoarthritis of left knee: Status: Acute Assessment and plan: Avoid use of NSAIDs in the setting of KAREN. Continued treatment with low-dose narcotics as well as Tylenol and topical lidocaine. Continue ice and elevation. Management as per orthopedic service. (6) Discharge planning issues: Status: Acute Assessment and plan: Patient will likely need short-term SNF placement for rehab once her acute medical issues are resolved. Patient remains full code Subjective Subjective Interval history since last seen: Nursing reports that when they try to work w/ her she gets combative. She has been refusing her oral meds and did not take her Seroquel last night. Exam Narrative Exam Narrative: Patient was somnolent when I walked into the room. She did open her eyes when I called her name. However she is clearly not oriented. She claims to have seen her father in the room. She thinks that I am trying to trick her. She clearly does not know where she is. Lungs: clear Heart: RRR Abdomen: she refused to allow me to examine Extremities; some edema of her left knee but no erythema Objective Last Vital Signs Temp 37.2 C 07/25/22 07:34 Pulse 91 H 07/25/22 07:34 Resp 18 07/25/22 07:34 BP 165/79 H 07/25/22 07:34 Pulse Ox 91 L 07/25/22 07:34 Laboratory Results - last 24 hr 07/25/22 06:30 Sodium 140 Potassium 4.4 Chloride 103 Carbon Dioxide 27.3 Anion Gap 9.7 BUN 14 Creatinine 0.7 Est GFR (CKD-EPI 2020) 84.70 Glucose 86 Calcium 8.3 L
[2022-07-25] MEDS: OLANZapine 10 MG VIAL 2.5 MG IM ×2 (09:38→21:56)
--- NOTE | 2022-07-25 10:15 | PDOC.CMPRO ---
- If Service Date Differs Date of service: 07/25/22 Time of Service: 10:15 Care Management Progress Note S/O: Michelle was sitting up in her chair receiving assistance with eating her lunch when CM met with her. She was speaking some [place] words, and was pleasant in interactions with staff. She is being reviewed by admissions from [facility] currently. CM will continue to follow. A: 87 year old female admitted to [facility] for Left Knee DJD, now being closely monitored and treated for ETOH withdrawal P: SNF for short term stay prior to returning home; referrals faxed to [facility], [facility] [place] for [place].
[2022-07-25] MEDS: Acetaminophen 500 MG TAB 1000 MG PO (10:58)
[2022-07-25] MEDS: Enoxaparin 40 MG/0.4 ML SYR SC (11:03)
[2022-07-25 11:33] VITALS: BP 157/84; PULSE 79; RESP 18; TEMP 36.7; O2SAT 96
[2022-07-25 14:57] VITALS: BP 163/90; PULSE 107; RESP 18; TEMP 36.5; O2SAT 94
--- NOTE | 2022-07-25 15:08 | PT.INTREAT ---
Date of service: 07/25/22 Time of Service: 13:06 PT Notes Visit Reasons: Left Knee DJD Inpatient Physical Therapy Treatment Note [facility] Date: 07/25/2022 PRECAUTIONS: Fall, activity as tolerated, confusion, WBAT L SUBJECTIVE: Bella is pleasant in p.m. and reports that she would like to get back into bed. OBJECTIVE: PAIN: No c/o pain BED MOBILITY/TRANSFERS Rolling L/R: SBA Sit-supine: Max A x2 Sit-stand: Mod A x2 Stand-sit: Min A x2 Chair-bed: Min A x2 GAIT Assistive Device: FWW Weight bearing: WBAT L Assist: Min A x2 Distance: 6' Deviation: Poor FWW management, constant instruction required due to confusion VITALS: Continuous SaO2 monitoring: Patient WNL throughout session on RA THEREX: Performed PROM into knee flexion, extension, hip flexion, extension, abduction and adduction, which patient tolerates well. She demonstrates good passive ROM at this time. She was instructed in LAQ, hip flexion, and ankle pumps, to be completed in a seated position, with which she requires verbal and tactile cueing and assist for exercise completion. ASSESSMENT: Patient tolerated session well without complaint. She was able to tolerate a progression in gait distance without c/o L knee pain. She continues to demonstrate good passive knee ROM, however, requires significant cueing and assist with ther ex completion due to fatigue and confusion. PLAN: Continue to progress patient's mobility as tolerated and appropriate. TREATMENT CODE/TIME: Session 1: Hold, patient not safe due to decreased alertness Session 2: 28 minutes; [id number], [id number] (13:06)
[2022-07-25] MEDS: Water,Injection,Sterile 10 ML VIAL IJ (21:56)
[2022-07-25] MEDS: Gabapentin 300 MG CAP PO (22:01)
[2022-07-25] MEDS: Aspirin E.C. 81 MG TABEC PO (22:03)
[2022-07-25] MEDS: Nystatin POWDER 60 GM JAR TP (22:04)
[2022-07-25 22:17] VITALS: BP 157/79; PULSE 95; RESP 16; TEMP 36.7; O2SAT 96
[2022-07-26] MEDS: LORazepam 0.5 MG TAB PO (03:06)
[2022-07-26] MEDS: Bisacodyl 10 MG SUPP PR ×2 (05:13→17:08)
[2022-07-26 07:15] VITALS: BP 150/75; PULSE 88; RESP 20; TEMP 36.4; O2SAT 93
[2022-07-26] MEDS: OLANZapine 2.5 MG TAB PO (09:06)
[2022-07-26] MEDS: Promethazine 25 MG TAB PO (09:07)
[2022-07-26] MEDS: Aspirin E.C. 81 MG TABEC PO (09:09)
[2022-07-26] MEDS: Enoxaparin 40 MG/0.4 ML SYR SC (09:12)
[2022-07-26] MEDS: Pantoprazole 40 MG TABCR PO (09:12)
[2022-07-26] MEDS: Acetaminophen 500 MG TAB 1000 MG PO (09:13)
[2022-07-26] MEDS: Folic Acid 1 MG TAB PO (09:14)
[2022-07-26] MEDS: Cholecalciferol (Vitamin D3) 1,000 UNIT TAB 1000 UNITS PO (09:14)
[2022-07-26] MEDS: Calcium Carbonate 1.25 GM TAB PO (09:14)
[2022-07-26] MEDS: Multivitamin w/Minerals TAB 1 TAB PO (09:16)
[2022-07-26] MEDS: Thiamine 100 MG TAB PO (09:17)
[2022-07-26] MEDS: Multivitamin TAB 1 TAB PO (09:18)
[2022-07-26 09:24] LABS: Abs Immature Grans 0.21 10^3/uL (0.0-0.06); Absolute Basophil Count 0.05 10^3/uL (0.0-0.2); Absolute Eosinophil Count 0.32 10^3/uL (0.0-0.7); Absolute Monocyte Count 1.02 10^3/uL (0.1-0.8); Absolute Neutrophil Count 4.74 10^3/uL (1.2-6.7); Basophils % 0.6; HCT 28.5 % (36.0-46.0); HGB 9.5 g/dL (11.2-15.7); Immature Grans % 2.6; Lymphocytes % 20.2; MCH 33.6 pg (27.0-33.0); MCHC 33.3 % (32.0-36.0); MCV 101 fL (80-95); MPV 9.9 fL (8.0-11.0); Monocytes % 12.8; Neutrophils % 59.8; Platelet Count 240 10^3/uL (130-400); RBC 2.83 10^6/uL (3.93-5.22); RDW 14.3 % (11.7-14.6); RDW-SD 52.6 fL; WBC 7.94 10^3/uL (4.4-10.8)
[2022-07-26 09:40] LABS: Anion Gap 3.2 mmol/L (3-11); BUN 11 mg/dL (7-18); CO2 30.8 mmol/L (21.0-32.0); CREATININE 0.7 mg/dL (0.55-1.02); Calcium 8.1 mg/dL (8.5-10.1); Chloride 102 mmol/L (98-107); Glucose 92 mg/dL (74-106); Magnesium 1.3 mg/dL (1.8-2.4); Potassium 3.8 mmol/L (3.5-5.1); Sodium 136 mmol/L (136-145)
--- NOTE | 2022-07-26 10:47 | PT.INTREAT ---
Date of service: 07/26/22 Time of Service: 10:02 PT Notes Visit Reasons: Left Knee DJD Inpatient Physical Therapy Treatment Note [facility] Date: 07/26/2022 PRECAUTIONS: Fall, activity as tolerated, confusion, WBAT L SUBJECTIVE: Bella states that she needs to get up to have a bowel movement. OBJECTIVE: PAIN: Patient c/o L knee pain with transfers and weight bearing BED MOBILITY/TRANSFERS Supine-sit: Max A x2 Sit-stand: Mod A x2 Stand-sit: Min A x2 Bed-chair: Mod A x2 GAIT Assistive Device: FWW Weight bearing: WBAT L Assist: Mod A x2 Distance: 6' Deviation: Poor FWW management, constant instruction required due to confusion VITALS: Continuous SaO2 monitoring: Patient WNL throughout session on RA THEREX: Performed PROM into knee flexion, extension, hip flexion, extension, abduction and adduction, which patient tolerates well. She demonstrates good passive ROM at this time. She was instructed in LAQ, hip flexion, and ankle pumps, to be completed in a seated position, with which she requires verbal and tactile cueing and assist for exercise completion. ASSESSMENT: Patient tolerated session well without complaint. She was able to tolerate a progression in gait distance without c/o L knee pain. She continues to demonstrate good passive knee ROM, however, requires significant cueing and assist with ther ex completion due to fatigue and confusion. PLAN: Continue to progress patient's mobility as tolerated and appropriate. TREATMENT CODE/TIME: Session 1: Hold, patient not safe due to decreased alertness Session 2: 28 minutes; [id number], [id number] (13:06)
[2022-07-26 11:13] VITALS: BP 158/81; PULSE 89; RESP 20; TEMP 36.9; O2SAT 91
[2022-07-26] MEDS: MAGNESIUM SULFATE 4 GM/100 ML BAG IVPB (11:50)
[2022-07-26] MEDS: Normal Saline Flush 10 ML SYR IV ×2 (11:54→20:58)
[2022-07-26 15:31] VITALS: BP 123/68; PULSE 88; RESP 20; TEMP 36.7; O2SAT 89
--- NOTE | 2022-07-26 15:40 | W.PM.PROGNOT ---
Date of Service Date of service: 07/26/22 Time of Service: 15:40 Assessment and Plan Assessment and plan (1) Altered mental status: Status: Acute Assessment and plan: Ddx: encephalopathy/delirium such as from anesthesia, KAREN, alcohol withdrawal vs psychosis/decompensated bipolar disorder due to not taking seroquel vs a combination of both. Better, but oversedated on my exam. Will switch the zyprexa to night time schedule (starting tomorrow; received zyprexa this morning). Consider resuming seroquel in place of zyprexa as it seemed to be previously effective. No psychiatry consult available in-house at this time, unfortunately. S/p phenobarb load - check level. (2) Bipolar disorder, in full remission, most recent episode mixed: Status: Chronic Assessment and plan: as above (3) Acute kidney injury: Status: Resolved Assessment and plan: Recheck Cr in am as I suspect the patient has not taken much PO today due to her somnolence. (4) Primary osteoarthritis of left knee: Status: Acute Assessment and plan: Continue PT, pain management per primary team (5) Hypomagnesemia: Status: Acute Assessment and plan: Replete, recheck in am. (6) Discharge planning issues: Status: Acute Assessment and plan: Patient will likely need short-term SNF placement for rehab once her acute medical issues are resolved. Patient remains full code (7) DVT prophylaxis: Status: Acute Assessment and plan: SC enoxaparin Discussed with Dr Richey Subjective Subjective Interval history since last seen: Ms Whitaker has been somnolent for a lot of today. She was able to work with PT. She does wake up enough on my visit to tell me she is not in pain and that she is just sleepy and promptly falls back asleep. Exam Narrative Exam Narrative: General: Elderly female who is asleep in a recliner, wakes up enough to answer a couple of questions, and promptly falls back asleep HEENT: EOMI, dry MM Heart: RRR, no m/r/g Lungs: Breathing sonorously while asleep Abdomen: soft, nontender, nondistended Extremities: no edema; L knee incision dressed - c/d/i Objective Last Vital Signs Temp 36.7 C 07/26/22 15:31 Pulse 88 07/26/22 15:31 Resp 20 07/26/22 15:31 BP 123/68 07/26/22 15:31 Pulse Ox 89 L 07/26/22 15:31 Laboratory Results - last 24 hr 07/26/22 07/26/22 09:17 09:17 WBC 7.94 RBC 2.83 L Hgb 9.5 L Hct 28.5 L MCV 101 H MCH 33.6 H MCHC 33.3 RDW 14.3 Plt Count 240 MPV 9.9 Immature Gran % 2.6 Neutrophils % 59.8 Lymphocytes % 20.2 Monocytes % 12.8 Eosinophils % 4.0 Basophils % 0.6 Nucleated RBC % 0.0 Absolute Neutrophils 4.74 Absolute Lymphocytes 1.60 Absolute Monocytes 1.02 H Absolute Eosinophils 0.32 Absolute Basophils 0.05 Sodium 136 Potassium 3.8 Chloride 102 Carbon Dioxide 30.8 Anion Gap 3.2 BUN 11 Creatinine 0.7 Est GFR (CKD-EPI 2020) 84.70 Glucose 92 Calcium 8.1 L Magnesium 1.3 L
--- NOTE | 2022-07-26 18:56 | CMPROGNOTE_ITS ---
- If Service Date Differs Date of service: 07/26/22 Time of Service: 18:56 Care Management Progress Note S/O: Michelle was sleeping when CM attempted to meet with her multiple times today. She received a bed offer from [facility], which is her family's first choice. Per MD, she is not medically cleared. Once she is medically cleared, CM will coordinate transport to [facility]. CM will continue to follow. A: 87 year old female admitted to [facility] for Left Knee DJD, now being closely monitored and treated for ETOH withdrawal P: SNF for short term stay prior to returning home; referrals faxed to [facility], [facility] [place] for [place].
[2022-07-26] MEDS: Nystatin POWDER 60 GM JAR TP (20:57)
[2022-07-26] MEDS: Gabapentin 300 MG CAP PO (22:12)
[2022-07-27] MEDS: OLANZapine 10 MG VIAL 2.5 MG IM (09:55)
--- NOTE | 2022-07-27 10:09 | NUR.NOTE ---
Nursing Note: Per SAMPLE DISPLAY PREPARER, patient assisted from bed to commode and then chair, patient was cooperative with care. After patients meal tray was set up per [facility], patient threw her milk at [facility], then later threw her food from tray to the floor. Patient became physically and verbally aggressive, nurse and rod mill operator nurse were called to room. Upon entering patients room this nurse found patient to be verbally and physically aggressive with charge nurse and [facility] staff, hitting, grabbing, swearing and per staff attempting to pull out hernandez. Patient pulled out IV this am and Charge had called for additional assistance and for IM zyprexa, additionally patient noted to be paranoid and confused to time and place. IM zyprexa was administered per order see MAR. Staff continued to redirect patient and maintain safety, patient was reclined in chair, and agitation decreased. Patient currently reclined in chair with eyes closed, does not wish to take any medications or have physical assessment completed, and intermittently hallucinating.
--- NOTE | 2022-07-27 10:28 | WOUNDCARE ---
Wound Care Report Nurse previously documented a pressure ulcer on bilateral calves. Pt evaluated by [facility] RN and pt does not have any ulcers of any kind anywhere on her body. Does have a certified court/medical interpreter (DREW hose) pressure injuries on bilateral calves. Right leg is light pink and is 8cm in length. Left leg is pink/red and circles the calf. No open areas noted. Pt has good pedal pulses, feet pink, warm, good cap refill. Drew hose no longer in use. Pt does have multiple bruises on upper extremities where IVs and lab draws and tourniquets have been used. Again, there are not open areas. No redness noted in groin or on buttocks. Joan Pearce RN
[2022-07-27 11:45] VITALS: PULSE 65; RESP 16; O2SAT 95
--- NOTE | 2022-07-27 12:39 | PT.INPN ---
Date of service: 07/27/22 Time of Service: 12:39 PT Notes Visit Reasons: Left Knee DJD Physical Therapy Inpatient Progress Note Date: 07/27/2022 Dates of Service: 07/19/2022 through 07/27/2022 Referring Doctor:? LOREE Mason PT Orders: PT CONSULT: S/P Ortho surgery Precautions: Fall. Standard. WBAT on L LE with AD. Patient Profile/Admitting Diagnosis:? 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 PMHX: Surgical History?(Updated 05/25/18 @ 10:33 by Vadim Dominguez MD) Appendectomy (~1952) H/O breast biopsy (~09/25/03) H/O colonoscopy (~08/21/00) H/O foot surgery Dr. Palafox, Podiatry 1993H/O left breast biopsy H/O: hysterectomy (~08/26/70) History of cataract surgery (05/13/18) Open Carpal Tunnel release (08/27/79) bilateral C[place] surg, [place] [facility] (08/10/98) [facility] [place] [facility] [place] Dr. Forde 04/03/13 Social History/Home Situation: Lives alone in a private home with 4 steps to enter with rails on B sides. Has a friend who has been helping out as much as she is able.? Has son and son's family who help occasionally but lives an hour away from here.? Independent with all ambulation activities using 4 wheeled walker. Equipment Owned/DME: [employer] Subjective: Adamant about going to bed, states that she is so cold and tired. Did not want to stay up on the chair for lunch. HOSPICE SPIRITUAL CARE COORDINATOR Angie needed to stay with patient for lunch for safety. ? Objective: General Observation: Mepilex Ag over surgical incision. Appears anxious and needed to go back to bed as she is very cold. Mental Status: More alert and able to follow instructions. Requires encouragement to participate in therapy. Withdrawal symptoms improving. Pain: Minimal pain with ambulation activity Vital Signs: WNL both monitored by nursing staff ROM: Right Lower Extremity: Hip flexion WFL. Hip abduction WFL. Knee flexion WFL. Ankle dorsiflexion WFL. Ankle plantarflexion WFL. Left Lower Extremity: Hip flexion WFL. Hip abduction WFL. Knee flexion 20 degrees to 90 degrees.? Extension -20 degrees ankle dorsiflexion WFL. Ankle plantarflexion WFL. Strength: Right Lower Extremity: Hip flexors 4/5. Hip abductors 4/5. Knee flexors 4/5. Knee extensors 4/5. Ankle dorsiflexors 4/5. Ankle plantarflexors 4/5. Left Lower Extremity: Hip flexors 4-/5. Hip abductors 4-/5. Knee flexors 3-/5. Knee extensors 3-/5. Ankle dorsiflexors 4-/5. Ankle plantarflexors 4-/5. Bed Mobility/Transfers: Supine to sit stand by assist Sit to supine stand by assist Sit to stand stand by assist with FWW Stand to sit stand by assist with FWW Bed to reclining chair contact-guard assist with FWW Reclining chair to bed contact-guard assist with FWW Gait: Instructed patient with level surface ambulation of 8 feet requiring stand by assist. More decreased. Step height decreased. Step length decreased.? Good quad activation. Balance: Static Sitting: Normal Dynamic Sitting: Normal Static Standing: Fair Dynamic Standing: Fair Special Tests: Mobility Limitations Standardized Measure [facility] 6 clicks Basic Mobility Inpatient Short Form: Raw Score: 22? CMS Score: 21% deficit? ? ? Informed Consent/Education:? Patient was instructed in purpose of PT consult and plan of care. Agreeable to continue with established PT POC to achieve personal goals. Assessment: Patient was sidetracked with onset of withdrawal symptoms in the past days which needed the patient to be put on hold due to decreased responsiveness. Patient requires the use of a front wheel walker and contact-guard assist for all mobility ADL performance in order to maximize independence and reduce fall risk Patient presents with clinical signs and symptoms consistent with current/admitting diagnoses that have resulted to mobility limitations, gait instability, generalized weakness, and overall ADL decline as demonstrated by the following impairment level findings: 1.? Decreased strength to L? knee major muscle groups 2.? Impaired standing balance 3.? Impaired activity tolerance 4.? Limitation of joint range of motion in L knee 5. Adverse effect of withdrawal symptoms Impairments are contributing to the following functional limitations: 1.? Decline in bed mobility skills 2.? Decline in transfer skills 3.? Difficulty with ambulation without assistive device and physical assistance 4.? Increased completion time for mobility ADL performance 5.? Increased risk for falls 6.? Difficulty with managing steps alone safely Patient is assessed as a 22095 moderate complexity based on the following: History: 87-year-old female with past medical history as indicated above Examination: Demonstrable impairment in strength, balance, and mobility level with underlying impairments and functional limitations as exhibited above as well as deficit score of 47% utilizing the [facility] Mobility Inpatient Short Form Presentation: Evolving Decision Makin moderate complexity Goals: Goals X1 week 1. Supine-Sit independent NOT MET, CONTINUE 2. Sit-Supine independent NOT MET, CONTINUE 3. Sit-Stand independent NOT MET, CONTINUE 4. Stand-Sit independent with FWW NOT MET, CONTINUE 5. Bed-Chair independent with FWW NOT MET, CONTINUE 6. Chair-Bed independent with FWW NOT MET, CONTINUE 7. Independent gait on level surface with use of FWW for at least 300 feet without report of pain nor dyspnea NOT MET, CONTINUE 8. Independent stair negotiation while holding onto B rails for at least 3 steps without report of pain nor dyspnea NOT MET, CONTINUE 9. Independent with home exercise program NOT MET, CONTINUE 10. Good static and dynamic standing balance/tolerance NOT MET, CONTINUE Plan of Care/Treatment Plan: 1-2x/day, 7 days/week x 1 week. Plan of care has been reviewed with the TREATMENT MANAGER providing the service under Physical Therapy direction. Initiate Physical Therapy intervention for pain management as needed, strengthening, bed mobility, transfers, gait, stairs, balance training, and use of assistive device. DISCHARGE RECOMMENDATIONS: [] ? Home with no services [] [] ? Home with services [] [] ? Home with outpatient PT [] [X] ? SNF for continued rehabilitation. Patient will benefit from retirement facility placement for continued skilled physical therapy services in order to progress mobility level, strength, and balance in preparation for a safe discharge to home. [] ? [facility] [] [] ? SNF versus LTC based on ability to participate and progress [] TREATMENT CODE/TIME: 18867 x 20 minutes beginning at 12:39 PM. Thank you for the opportunity to participate in the care of this patient. Maribel Macias PT, DPT, CLT [facility], [place]
[2022-07-27 15:30] VITALS: BP 129/82; PULSE 76; RESP 18; TEMP 37.2; O2SAT 95
--- NOTE | 2022-07-27 15:59 | W.PM.PROGNOT ---
Date of Service Date of service: 07/27/22 Time of Service: 15:59 Assessment and Plan Assessment and plan (1) Primary osteoarthritis of left knee: Status: Acute Assessment and plan: Michelle does complain some pain left knee. She has been able to get to a chair. Unfortunately, her pain reporting is difficult to assess. It is normal to have some pain at this point in the recovery process but the risk of medicating we will increase somnolence. Continue with attempts at physical therapy and ambulation. Weightbearing as tolerated. Tylenol as primary pain medication. (2) Altered mental status: Status: Acute Assessment and plan: Default to the hospitalist service. She seems to be clear this afternoon and I have seen her in a few days. However, she is still confused on the details. Subjective Subjective Interval history since last seen: Was able to get up to the chair earlier today. Has been mostly sleeping throughout the day. Intermittently confused. Less agitation. Was able to eat some lunch. Exam Narrative Exam Narrative: Resting in the hospital bed semirecumbent. Her eyes are closed. She is not alert but does awaken with minimal effort. She is once again confused stating I know Dr. Richey looks like and you are not him. She reports pain in the left knee but then closes her eyes. Evaluation of the left knee shows a dressing which is clean dry and intact. There is some swelling around the knee and notable pitting edema throughout both legs, slightly worse on the left. Palpable PT and DP pulses. Gentle range of motion of the knee does not seem to bother her as she sleeps through. Objective Last Vital Signs Temp 36.7 C 07/26/22 15:31 Pulse 65 07/27/22 11:45 Resp 16 07/27/22 11:45 BP 123/68 07/26/22 15:31 Pulse Ox 95 07/27/22 11:45
--- NOTE | 2022-07-27 17:06 | PDOC.CMPRO ---
- If Service Date Differs Date of service: 07/27/22 Time of Service: 17:06 Care Management Progress Note S/O: Michelle was sleeping when CM attempted to meet with her several times today. Per report, she was given IM zyprexa today after becoming combative with staff. She remains confused, more so than her baseline, per her children. She has received a bed offer at [facility], but she is not yet medically ready for discharge, as her medications continue to be adjusted. CM sent a referral to [facility] today, as we do not currently have access to psychiatric consultations. CM will continue to follow. A: 87 year old female admitted to [facility] for Left Knee DJD, now being closely monitored and treated for ETOH withdrawal P: Michelle will likely require short term rehab prior to returning home. She has a bed offer at [facility], which is her children's first choice, as they all live in [place]. She will transport via private vehicle vs w/c van, coordinated by CM. She will follow up with her PCP and discharge plan of care. CM will continue to follow.
--- NOTE | 2022-07-27 17:14 | PGE_ITS ---
Date of Service Date of service: 07/27/22 Time of Service: 17:22 Assessment and Plan Assessment and plan (1) Altered mental status: Status: Acute Assessment and plan: Ddx: encephalopathy/delirium such as from anesthesia, KAREN, alcohol withdrawal vs psychosis/decompensated bipolar disorder due to not taking seroquel vs a combination of both. Did require zyprexa IM again this morning. Will trial switching back to seroquel tonight since it kept her controlled. Discussed with care management that, perhaps, [facility] could be considered. No psychiatry consult available in-house at this time. S/p phenobarb load - level pending. (2) Bipolar disorder, in full remission, most recent episode mixed: Status: Chronic Assessment and plan: as above (3) Acute kidney injury: Status: Resolved Assessment and plan: The patient did not cooperate wiht labs this morning. Will attemp to recheck tomorrow. I did write for IVF as her PO intake today was so poor. (4) Primary osteoarthritis of left knee: Status: Acute Assessment and plan: Continue PT, pain management per primary team (5) Hypomagnesemia: Status: Acute Assessment and plan: Pt refused labs. check in am. (6) Discharge planning issues: Status: Acute Assessment and plan: Referrals are being sent to [facility]. Patient will likely need short-term SNF placement for rehab once her acute medical issues are resolved. Full code. (7) DVT prophylaxis: Status: Acute Assessment and plan: SC enoxaparin Subjective Subjective Interval history since last seen: Ms Whitaker received a dose of IM zyprexa this morning for agitation and combative behavior. She spent a lot of the day following this asleep. She is now awake and A&Ox2 (thinks she is at a [facility] - it doesn't matter what you say, I don't believe you!). She states her L leg is bothering her. She denies dizziness, chest pain, shortness of breath, nausea. Exam Narrative Exam Narrative: General: Elderly female who is awake in bed, A&Ox2, watching TV, acting suspicious of information I give her. HEENT: EOMI, dry MM Heart: RRR, no m/r/g Lungs: CTAB Abdomen: soft, nontender, nondistended Extremities: no edema; L knee incision dressed - c/d/i Objective Last Vital Signs Temp 37.2 C 07/27/22 15:30 Pulse 76 07/27/22 15:30 Resp 18 07/27/22 15:30 BP 129/82 07/27/22 15:30 Pulse Ox 95 07/27/22 15:30
[2022-07-27 18:59] LABS: Abs Immature Grans 0.21 10^3/uL (0.0-0.06); Absolute Basophil Count 0.04 10^3/uL (0.0-0.2); Absolute Eosinophil Count 0.29 10^3/uL (0.0-0.7); Absolute Lymphocyte Count 1.77 10^3/uL (1.2-3.4); Absolute Monocyte Count 0.95 10^3/uL (0.1-0.8); Absolute Neutrophil Count 5.65 10^3/uL (1.2-6.7); Basophils % 0.4; Eosinophils % 3.3; HCT 27.7 % (36.0-46.0); HGB 9.2 g/dL (11.2-15.7); Immature Grans % 2.4; Lymphocytes % 19.9; MCH 33.2 pg (27.0-33.0); MCHC 33.2 % (32.0-36.0); MCV 100 fL (80-95); MPV 9.9 fL (8.0-11.0); Monocytes % 10.7; Neutrophils % 63.3; Nucleated RBC 0.3 % (0.0-0.3); Platelet Count 336 10^3/uL (130-400); RBC 2.77 10^6/uL (3.93-5.22); RDW 14.6 % (11.7-14.6); RDW-SD 52.2 fL; WBC 8.91 10^3/uL (4.4-10.8)
[2022-07-27 19:18] LABS: Iron 54 ug/dL (50-170); Total Iron Binding Capacity 215 ug/dL (250-450); Transferrin Sat 25 % (15-50)
[2022-07-27 19:28] LABS: Anion Gap 4.4 mmol/L (3-11); BUN 14 mg/dL (7-18); CO2 30.6 mmol/L (21.0-32.0); CREATININE 0.9 mg/dL (0.55-1.02); Calcium 8.1 mg/dL (8.5-10.1); Chloride 99 mmol/L (98-107); Estimated GFR 62.65 (mL/min/1.73m2); Ferritin 225 ng/mL (8-252); Folate 7.8 ng/mL (8.6-20.0); Glucose 114 mg/dL (74-106); Magnesium 1.7 mg/dL (1.8-2.4); Potassium 3.8 mmol/L (3.5-5.1); Sodium 134 mmol/L (136-145); Vitamin B12 1997 pg/mL (193-986)
[2022-07-27] MEDS: Acetaminophen 500 MG TAB 1000 MG PO (19:30)
[2022-07-27 19:40] VITALS: BP 153/73; PULSE 86; RESP 18; TEMP 37.2; O2SAT 95
[2022-07-27 19:44] LABS: PHENOBARBITAL 28.5 ug/mL (15.0-40.0)
[2022-07-27] MEDS: QUEtiapine 25 MG TAB PO (22:55)
[2022-07-27] MEDS: Sucralfate 1 GM TAB PO (22:55)
[2022-07-27] MEDS: Gabapentin 300 MG CAP PO (22:55)
[2022-07-27 23:11] VITALS: BP 126/89; PULSE 131; RESP 18; TEMP 37.1; O2SAT 94
[2022-07-28 00:53] VITALS: PULSE 93
[2022-07-28 07:21] LABS: Abs Immature Grans 0.26 10^3/uL (0.0-0.06); Absolute Basophil Count 0.04 10^3/uL (0.0-0.2); Absolute Eosinophil Count 0.47 10^3/uL (0.0-0.7); Absolute Lymphocyte Count 2.24 10^3/uL (1.2-3.4); Absolute Monocyte Count 0.87 10^3/uL (0.1-0.8); Absolute Neutrophil Count 3.22 10^3/uL (1.2-6.7); Basophils % 0.6; Eosinophils % 6.6; HCT 28.6 % (36.0-46.0); HGB 9.5 g/dL (11.2-15.7); Immature Grans % 3.7; Lymphocytes % 31.5; MCH 33.5 pg (27.0-33.0); MCHC 33.2 % (32.0-36.0); MCV 101 fL (80-95); Monocytes % 12.3; Neutrophils % 45.3; Nucleated RBC 0.3 % (0.0-0.3); Platelet Count 315 10^3/uL (130-400); RBC 2.84 10^6/uL (3.93-5.22); RDW 14.8 % (11.7-14.6); RDW-SD 53.6 fL
[2022-07-28 07:22] LABS: Anion Gap 4.2 mmol/L (3-11); BUN 13 mg/dL (7-18); CO2 30.8 mmol/L (21.0-32.0); CREATININE 0.8 mg/dL (0.55-1.02); Chloride 103 mmol/L (98-107); Estimated GFR 72.16 (mL/min/1.73m2); Glucose 90 mg/dL (74-106); Magnesium 1.8 mg/dL (1.8-2.4); Potassium 3.7 mmol/L (3.5-5.1); Sodium 138 mmol/L (136-145)
[2022-07-28 07:40] VITALS: BP 138/80; PULSE 70; RESP 20; TEMP 36.8; O2SAT 91
[2022-07-28] MEDS: Acetaminophen 500 MG TAB 1000 MG PO ×3 (10:09→20:55)
[2022-07-28] MEDS: Cholecalciferol (Vitamin D3) 1,000 UNIT TAB 1000 UNITS PO (10:09)
[2022-07-28] MEDS: Multivitamin w/Minerals TAB 1 TAB PO (10:09)
[2022-07-28] MEDS: Levothyroxine 150 MCG TAB 300 MCG PO (10:09)
[2022-07-28] MEDS: Calcium Carbonate 1.25 GM TAB PO (10:10)
[2022-07-28] MEDS: Multivitamin TAB 1 TAB PO (10:12)
[2022-07-28] MEDS: Sucralfate 1 GM TAB PO ×3 (10:13→20:55)
[2022-07-28] MEDS: Nystatin POWDER 60 GM JAR TP ×2 (10:13→20:57)
[2022-07-28 11:11] VITALS: BP 121/63; PULSE 86; RESP 18; TEMP 36.3; O2SAT 94
--- NOTE | 2022-07-28 13:37 | CHAPLAIN ---
Michelle became teary when we started talking. She said she wants to go home a that she's being punished for something I didn't do. We talked about how she is not being punished and that there isn't anything she did or didn't do recently that she would be punished for. According to Care Management notes, she has been offered a bed at a facility in [place]. Michelle told me in a earlier visit that her son lives in [place]. Michelle has a home in [place] where she has lived by herself since her several years ago. She is a [employer].
--- NOTE | 2022-07-28 13:40 | PT.INTREAT ---
PT Notes Visit Reasons: Left Knee DJD Inpatient Physical Therapy Treatment Note [facility] Date: 07/28/22 SUBJECTIVE: Michelle denies any knee pain. She c/o belly pain with diarrhea this am. Very weepy this pm, stating she wants her kids here. She also would like her hair and makeup done. OBJECTIVE: [] BED MOBILITY/TRANSFERS Supine-sit: CGA/min A of 1 Sit-supine:min A of 1 with LE Sit-stand: CGA Stand-sit: CGA GAIT Assistive Device: FWW Weight bearing:AT R Assist: CGA of 1 Distance: pivot in am (due to incontinence of BM) 50' in pm THEREX: global LE strength and stabilization in bed. This included AP, LAQ, SAQ, SLR, hip ABD and heel slides x 10-12 each. Toileted: min assistance required to get her cleaned up. She was able to clean the front of herself independently. ASSESSMENT: tolerated session well. Very willing to participate in PT today both sessions. Upset and weepy this pm, wanting to talk with her children. Phone calls were made and she left messages on voice mail. PLAN: will continue to progress her strength and functional mobility to tolerance. TREATMENT CODE/TIME: 25 min in am/25 mn in pm. [id number], [id number]
--- NOTE | 2022-07-28 14:35 | CMPROGNOTE_ITS ---
- If Service Date Differs Date of service: 07/28/22 Time of Service: 14:35 Care Management Progress Note S/O: Michelle was sitting up in bed when CM met with her. She stated that she is hungry, as she hasn't had much to eat recently. Her nurse brought her medications into the room, and she expressed understanding of taking her medications as prescribed. She was awake and alert. Per MD, she is not yet medically cleared, although she is much improved today, they would like to monitor her over the weekend. CM communicated this update to [facility], who stated that they will hold her bed at their facility until Sunday. CM talked to her children and provided them with this update. They stated that they will be visiting over the weekend, and are looking forward to her being closer. CM will continue to follow. A: 87 year old female admitted to [facility] for Left Knee DJD, now being closely monitored and treated for ETOH withdrawal P: Michelle will likely require short term rehab prior to returning home. She has a bed offer at [facility], which is her children's first choice, as they all live in [place]. She will transport via private vehicle vs w/c van, coordinated by MELISSA. She will follow up with her PCP and discharge plan of care. CM will continue to follow.
--- NOTE | 2022-07-28 14:43 | NUR.NOTE ---
patient asking for immodium, Charge nurse aware.
[2022-07-28 15:53] VITALS: BP 129/94; RESP 18; TEMP 36.4; O2SAT 94
--- NOTE | 2022-07-28 17:01 | W.PM.PROGNOT ---
Date of Service Date of service: 07/28/22 Time of Service: 17:02 Assessment and Plan Assessment and plan (1) Altered mental status: Status: Acute Assessment and plan: Ddx: encephalopathy/delirium such as from anesthesia, KAREN, alcohol withdrawal vs psychosis/decompensated bipolar disorder due to not taking seroquel vs a combination of both. Much improved. No need for PRN seroquel since PO seroquel started. At this time, I suspect the patient is near baseline mental status. No psychiatry consult available in-house at this time. S/p phenobarb load. No evidence of EtOH w/d at this time. (2) Heme + stool: Status: Resolved Assessment and plan: I suspect that the patient had a transient gastritis due to poor PO intake/stress. She is now heme negative. H/H is stable. Would continue PPI and carafate PO. Can advance diet. Since she is now heme negative, I do not see the benefit of endoscopy at this time. It could be done as outpatient. (3) Bipolar disorder, in full remission, most recent episode mixed: Status: Chronic Assessment and plan: as above (4) Acute kidney injury: Status: Resolved Assessment and plan: Encourage PO fluids. (5) Primary osteoarthritis of left knee: Status: Acute Assessment and plan: Continue PT, pain management per primary team (6) Hypomagnesemia: Status: Resolved Assessment and plan: Recheck in am (7) DVT prophylaxis: Status: Acute Assessment and plan: SCDs. Holding chemical DVT ppx in light of heme + stools. (8) Discharge planning issues: Status: Acute Assessment and plan: Full code. Patient will likely need short-term SNF placement for rehab once her acute medical issues are resolved. Hospitalists took over care from Dr Richey. Subjective Subjective Interval history since last seen: Michelle complains of having diarrhea. She reports lower abdominal cramping - she states taht's normal for her. She is now hemoccult negative. She denies dizziness, chest pain, shortness of breath, nausea. She states at home she takes imodium and peptobismol for her diarrhea. Exam Narrative Exam Narrative: General: Elderly female who is awake in bed, A&Ox3, much more reasonable, tearful when talking about her diarrhea, watching TV HEENT: EOMI, MMM Heart: RRR, no m/r/g Lungs: CTAB Abdomen: soft, nontender, nondistended Extremities: no edema; L knee incision dressed - c/d/i Objective Last Vital Signs Temp 36.4 C L 07/28/22 15:53 Pulse 86 07/28/22 11:11 Resp 18 07/28/22 15:53 BP 129/94 H 07/28/22 15:53 Pulse Ox 94 07/28/22 15:53 Laboratory Results - last 24 hr 07/27/22 07/27/22 07/27/22 18:35 18:35 18:35 WBC 8.91 RBC 2.77 L Hgb 9.2 L Hct 27.7 L MCV 100 H MCH 33.2 H MCHC 33.2 RDW 14.6 Plt Count 336 MPV 9.9 Immature Gran % 2.4 Neutrophils % 63.3 Lymphocytes % 19.9 Monocytes % 10.7 Eosinophils % 3.3 Basophils % 0.4 Nucleated RBC % 0.3 Absolute Neutrophils 5.65 Absolute Lymphocytes 1.77 Absolute Monocytes 0.95 H Absolute Eosinophils 0.29 Absolute Basophils 0.04 Sodium 134 L Potassium 3.8 Chloride 99 Carbon Dioxide 30.6 Anion Gap 4.4 BUN 14 Creatinine 0.9 Est GFR (CKD-EPI 2020) 62.65 Glucose 114 H Calcium 8.1 L Magnesium 1.7 L Iron 54 TIBC 215 L Transferrin % Sat 25 Ferritin 225 Vitamin B12 1997 H Folate 7.8 L Phenobarbital 07/27/22 07/28/22 07/28/22 18:35 06:25 06:25 WBC 7.10 RBC 2.84 L Hgb 9.5 L Hct 28.6 L MCV 101 H MCH 33.5 H MCHC 33.2 RDW 14.8 H Plt Count 315 MPV 10.0 Immature Gran % 3.7 Neutrophils % 45.3 Lymphocytes % 31.5 Monocytes % 12.3 Eosinophils % 6.6 Basophils % 0.6 Nucleated RBC % 0.3 Absolute Neutrophils 3.22 Absolute Lymphocytes 2.24 Absolute Monocytes 0.87 H Absolute Eosinophils 0.47 Absolute Basophils 0.04 Sodium 138 Potassium 3.7 Chloride 103 Carbon Dioxide 30.8 Anion Gap 4.2 BUN 13 Creatinine 0.8 Est GFR (CKD-EPI 2020) 72.16 Glucose 90 Calcium 8.0 L Magnesium 1.8 Iron TIBC Transferrin % Sat Ferritin Vitamin B12 Folate Phenobarbital 28.5
[2022-07-28] MEDS: Loperamide 2 MG CAP PO ×2 (17:08→20:56)
[2022-07-28 17:18] LABS: HCT 31.4 % (36.0-46.0); HGB 10.3 g/dL (11.2-15.7)
[2022-07-28 19:30] VITALS: BP 147/83; PULSE 76; RESP 18; TEMP 36.6; O2SAT 100
[2022-07-28 19:54] LABS: C Diff PCR Negative (Negative)
[2022-07-28] MEDS: Gabapentin 300 MG CAP PO (20:54)
[2022-07-28] MEDS: Pantoprazole 40 MG TABCR PO (20:55)
[2022-07-28] MEDS: QUEtiapine 25 MG TAB PO (20:56)
[2022-07-28 23:13] VITALS: BP 135/75; PULSE 78; RESP 19; TEMP 36.5; O2SAT 97
[2022-07-29 02:58] VITALS: BP 132/64; PULSE 84; RESP 21; TEMP 36.6; O2SAT 97
[2022-07-29] MEDS: Levothyroxine 150 MCG TAB 300 MCG PO (06:20)
[2022-07-29 07:25] VITALS: BP 148/79; PULSE 80; RESP 18; TEMP 36.5; O2SAT 96
[2022-07-29] MEDS: Multivitamin w/Minerals TAB 1 TAB PO (09:23)
[2022-07-29] MEDS: Folic Acid 1 MG TAB PO (09:23)
[2022-07-29] MEDS: Acetaminophen 500 MG TAB 1000 MG PO ×2 (09:24→14:11)
[2022-07-29] MEDS: Cholecalciferol (Vitamin D3) 1,000 UNIT TAB 1000 UNITS PO (09:24)
[2022-07-29] MEDS: Nystatin POWDER 60 GM JAR TP ×2 (09:28→21:37)
--- NOTE | 2022-07-29 10:48 | PT.INTREAT ---
Date of service: 07/29/22 PT Notes Visit Reasons: Left Knee DJD Inpatient Physical Therapy Treatment Note [facility] Date: 07/29/2022 PRECAUTIONS: Fall, activity as tolerated, confusion, WBAT L SUBJECTIVE: Bella is pleasant and agreeable to participating in PT. She reports that she is feeling better today and would like to get up to the chair for breakfast. She reports that she is transferring to a SNF in [place] on Sunday to be closer to her children. OBJECTIVE: PAIN: Patient c/o minimal L knee pain with transfers and weight bearing BED MOBILITY/TRANSFERS Supine-sit: Min A Sit-stand: CGA Stand-sit: CGA GAIT Assistive Device: FWW Weight bearing: WBAT L Assist: CGA Distance: 30' Deviation: Minimally antalgic gait THEREX: Patient was instructed in a LE strengthening program, completed in a seated position, to include: ankle pumps, LAQ, hip flexion and hip abduction. She requires verbal and visual cueing for proper exercise performance. She ends with cryocuff to L knee. ASSESSMENT: Patient tolerated session well with minimal complaint of L knee pain. She was able to tolerate a progression in gait distance with FWW support and CGA. She appears to have cleared from her confusion and is able to appropriately follow instructions. PLAN: Continue with LE strengthening and gait and transfer training for improved mobility. TREATMENT CODE/TIME: 30 minutes; 90477, 17976 (06:13)
[2022-07-29 11:01] VITALS: BP 148/74; PULSE 85; RESP 18; TEMP 36.6; O2SAT 97
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
[2022-07-29] MEDS: Sucralfate 1 GM TAB PO (14:17)
[2022-07-29 14:48] VITALS: BP 144/76; PULSE 91; RESP 18; TEMP 36.2; O2SAT 99
[2022-07-29 19:48] VITALS: BP 126/75; PULSE 74; RESP 19; TEMP 36.6; O2SAT 96
[2022-07-29] MEDS: QUEtiapine 25 MG TAB PO (21:34)
[2022-07-29] MEDS: Gabapentin 300 MG CAP PO (21:34)
[2022-07-29 23:51] VITALS: BP 143/77; PULSE 87; RESP 20; TEMP 37; O2SAT 94
[2022-07-30 03:00] VITALS: BP 125/76; PULSE 90; RESP 19; TEMP 36.6; O2SAT 95
[2022-07-30] MEDS: Levothyroxine 150 MCG TAB 300 MCG PO (05:32)
[2022-07-30 06:27] LABS: Anion Gap 7.5 mmol/L (3-11); BUN 15 mg/dL (7-18); CO2 28.5 mmol/L (21.0-32.0); CREATININE 0.8 mg/dL (0.55-1.02); Calcium 7.8 mg/dL (8.5-10.1); Chloride 106 mmol/L (98-107); Estimated GFR 72.16 (mL/min/1.73m2); Glucose 84 mg/dL (74-106); Potassium 3.4 mmol/L (3.5-5.1); Sodium 142 mmol/L (136-145)
[2022-07-30 08:05] VITALS: BP 151/81; PULSE 99; RESP 18; TEMP 37.4; O2SAT 96
[2022-07-30] MEDS: Sucralfate 1 GM TAB PO ×3 (08:52→17:01)
[2022-07-30] MEDS: Acetaminophen 500 MG TAB 1000 MG PO ×2 (08:53→13:59)
[2022-07-30] MEDS: Cholecalciferol (Vitamin D3) 1,000 UNIT TAB 1000 UNITS PO (08:53)
[2022-07-30] MEDS: Calcium Carbonate 1.25 GM TAB PO (08:53)
[2022-07-30] MEDS: Multivitamin w/Minerals TAB 1 TAB PO (08:53)
[2022-07-30] MEDS: Pantoprazole 40 MG TABCR PO (08:53)
[2022-07-30] MEDS: Folic Acid 1 MG TAB PO (08:53)
[2022-07-30 11:07] VITALS: BP 155/76; PULSE 81; RESP 18; TEMP 36.9; O2SAT 100
--- NOTE | 2022-07-30 11:35 | NUR.NOTE ---
Nursing Note: pT stated to [employer] and RN concern about swelling on left ankle and foot. RN asked [employer] to elevate pT lower left leg w/ 2 pillows. No more than 30 minutes later pT used call mckeon to complain that elevation was causing too much pain where she had the surgery. pT requested [employer] to remove and reposition pillow. At that point [employer] informed RN of pT's complaint. RN asked [employer] to document the interaction.
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
[2022-07-30] MEDS: Lidocaine 5% Patch 1 PATCH TP (13:59)
--- NOTE | 2022-07-30 15:07 | PTTR_ITS ---
Date of service: 07/30/22 Time of Service: 09:20 PT Notes Visit Reasons: Left Knee DJD Inpatient Physical Therapy Treatment Note [facility] Date: 07/30/2022 PRECAUTIONS: Fall, activity as tolerated, confusion, WBAT L SUBJECTIVE: Bella is pleasant and agreeable to participating in PT. She reports that she is feeling much better today. She reports that she is determined to work hard at rehab and return to home prior to [place]. OBJECTIVE: PAIN: Patient c/o minimal L knee pain with transfers and weight bearing BED MOBILITY/TRANSFERS Sit-stand: SBA Stand-sit: SBA GAIT Assistive Device: FWW Weight bearing: WBAT L Assist: SBA Distance: 50' Deviation: Minimally antalgic gait THEREX: Patient was instructed in a LE strengthening program, completed in a seated position, to include: ankle pumps, LAQ, hip flexion and hip abduction. She ends with cryocuff to L knee. ASSESSMENT: Patient tolerated session well with minimal complaint of L knee pain. She was able to tolerate a progression in gait distance with FWW support and SBA. She appears to have cleared from her confusion and is able to appropriately follow instructions and maintain appropriate and pleasant conversation. PLAN: Continue with LE strengthening and gait and transfer training for improved mobility. TREATMENT CODE/TIME: 19 minutes; 90369 (09:20)
[2022-07-30 15:08] VITALS: BP 165/89; PULSE 94; RESP 18; TEMP 37.1; O2SAT 97
[2022-07-30 16:47] LABS: Source Nasal/Nares
[2022-07-30 17:12] LABS: COVID-19 PCR Negative (Negative)
[2022-07-30 19:51] VITALS: BP 165/85; PULSE 92; RESP 18; TEMP 36.9; O2SAT 98
[2022-07-30] MEDS: Nystatin POWDER 60 GM JAR TP (20:34)
[2022-07-30 23:34] VITALS: BP 141/80; PULSE 79; RESP 18; TEMP 36.7; O2SAT 98
[2022-07-31] MEDS: QUEtiapine 25 MG TAB PO
[2022-07-31] MEDS: Gabapentin 300 MG CAP PO
--- NOTE | 2022-07-31 | DI.US_ITS ---
Exam(s) US LOWER EXTREMITY VENOUS LT EXAM: US LOWER EXTREMITY VENOUS LT CLINICAL HISTORY: pain and swelling. TECHNIQUE: Lower extremity venous ultrasound performed using grayscale, color-flow, and spectral Do ppler analysis. COMPARISON: No exams were available for comparison FINDINGS: The common femoral, femoral and popliteal veins demonstrate normal compressibility, augmentation, and color Doppler. The posterior tibial veins are patent. No saphenous vein thrombosis or other superfi cial venous thrombosis is seen. There is a 4.3 x 1.5 x 1.9 centimeter Campos's cyst. IMPRESSION: Campos's cyst. No evidence of DVT. DATA REPOSITORY:
[2022-07-31] MEDS: Acetaminophen 500 MG TAB 1000 MG PO ×2 (00:11→08:50)
[2022-07-31] MEDS: Lidocaine Patch Removal 1 EACH TP (00:15)
[2022-07-31 03:22] VITALS: BP 165/85; PULSE 90; RESP 18; TEMP 36.7; O2SAT 92
[2022-07-31] MEDS: Levothyroxine 150 MCG TAB 300 MCG PO (06:16)
[2022-07-31 06:48] LABS: Platelet Count 466 10^3/uL (130-400)
[2022-07-31 08:04] VITALS: BP 141/79; PULSE 91; RESP 19; TEMP 36.5; O2SAT 97
[2022-07-31] MEDS: Lidocaine 5% Patch 1 PATCH TP (08:50)
[2022-07-31] MEDS: Folic Acid 1 MG TAB PO (08:50)
[2022-07-31] MEDS: Multivitamin w/Minerals TAB 1 TAB PO (08:51)
[2022-07-31] MEDS: Pantoprazole 40 MG TABCR PO (08:51)
[2022-07-31] MEDS: Calcium Carbonate 1.25 GM TAB PO (08:51)
[2022-07-31] MEDS: Cholecalciferol (Vitamin D3) 1,000 UNIT TAB 1000 UNITS PO (08:51)
[2022-07-31] MEDS: Sucralfate 1 GM TAB PO ×2 (08:51→10:42)
[2022-07-31] MEDS: Nystatin POWDER 60 GM JAR TP (08:52)
--- NOTE | 2022-07-31 09:46 | W.PM.PROGNOT ---
Date of Service Date of service: 07/31/22 Time of Service: 07:55 Assessment and Plan Assessment and plan (1) Primary osteoarthritis of left knee: Status: Acute Assessment and plan: Michelle is an 87-year-old who is status post left knee replacement. Unfortunately she suffered significant postoperative delirium, likely multifactorial origin. She seems much better today although still with some delusional ideas of the most recent past and the etiology of her bruising. Nevertheless, she has cleared substantially. She has been able to mobilize with nursing. While she does report some pain about the left knee it does not seem to be limiting and objectively does not seem to be too significant. At this point, physical therapy will be the rivera for getting her home. She is likely to be discharged to a custodial facility later today. I would like to see her back in another 2-4 weeks for repeat clinical evaluation and Folstein alignment x-rays. She did have a 2 view x-ray of the left knee. Subjective Subjective Interval history since last seen: Michelle reports to be doing better. She still complains of pain in the left knee but was quick to describe she was up and walking with nursing. She also describes how [place] However, she does recall having the surgery and is able to discuss what is been going on the last day or 2. She denies any nausea. She has been able to eat. Exam Narrative Exam Narrative: Sitting upright in chair. No acute distress. Alert. Oriented to person and place but somewhat disoriented to details about the recent history Evaluation of the left knee shows a midline knee incision which is healing appropriately. She is able to actively extend the left knee to about 5 degrees of extension and flex to about 90 degrees. The knee is stable to varus and valgus stress. She has intact ankle dorsiflexion plantarflexion as well as great toe extension and flexion. Sensation intact light touch over the deep and superficial peroneal nerve and tibial nerve. Palpable DP and PT pulse. Objective Last Vital Signs Temp 36.5 C 07/31/22 08:04 Pulse 91 H 07/31/22 08:04 Resp 19 07/31/22 08:04 BP 141/79 H 07/31/22 08:04 Pulse Ox 97 07/31/22 08:04 Laboratory Results - last 24 hr 07/30/22 07/31/22 16:47 06:25 Plt Count 466 H COVID-19 Source Nasal/Nares SARS-CoV-2 (PCR) Negative
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
--- NOTE | 2022-07-31 12:25 | CMDISCH_ITS ---
- If Service Date Differs Date of service: 07/31/22 Time of Service: 12:25 LACE Index Scoring Tool - Questions: Length of Stay (in days): 7 - 13 Acuity (Admit via E.D.?): Yes E.D. Visits: 0 - Answers: Total Score: 8 Risk of Readmission: Low Risk Care Management Discharge Reason for Hospitalization: Left Knee DJD Discharge Plan: Michelle went to [facility] for short term rehab prior to returning home. She was transported [facility] wheelchair van, coordinated by MELISSA. CM faxed the discharge summary and the negative covid results to Serene, admissions at [facility], at her request. Michelle's daughter, Raul will meet her at the facility to help her with the transition. Michelle was in good spirits and excited to go to rehab. Patient/Family Education Needs: Review discharge instructions and discussion of self care needs including ask me three. Services Needed at Discharge: Retirement Facility ([facility]), Transportation ([facility] w/c van)
--- NOTE | 2022-07-31 18:30 | INDS_ITS ---
Date of service: 07/31/22 PT Notes Visit Reasons: Left Knee DJD Physical Therapy Inpatient Discharge Summary Date: 07/31/2022 Dates of Service: 07/19/2022 through 07/29/2022 This is a clinical summary of care provided for the duration of dates listed above. No charge was made in the completion of this documentation. Referring Doctor:? LOREE Mason PT Orders: PT CONSULT: S/P Ortho surgery Precautions: Fall. Standard. WBAT on L LE with AD. Patient Profile/Admitting Diagnosis:? 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 PMHX: Surgical History?(Updated 05/25/18 @ 10:33 by Vadim Dominguez MD) Appendectomy (~1952) H/O breast biopsy (~09/25/03) H/O colonoscopy (~08/21/00) H/O foot surgery Dr. Palafox, Podiatry 1993H/O left breast biopsy H/O: hysterectomy (~08/26/70) History of cataract surgery (05/13/18) Open Carpal Tunnel release (08/27/79) bilateral [place], [place] & [place] (08/10/98) [facility] [place] [place] Replaced Dr. Forde 04/03/13 Social History/Home Situation: Lives alone in a private home with 4 steps to enter with rails on B sides. Has a friend who has been helping out as much as she is able.? Has son and son's family who help occasionally but lives an hour away from here.? Independent with all ambulation activities using 4 wheeled walker. Equipment Owned/DME: 4WW Subjective: NT. See most recent [employer] OPERATOR notes. Objective: General Observation: NT. See most recent [employer] OPERATOR notes. Mental Status: NT. See most recent [employer] OPERATOR notes. Pain: NT. See most recent [employer] OPERATOR notes. Vital Signs: NT. See most recent [employer] OPERATOR notes. ROM: Right Lower Extremity: Hip flexion WFL. Hip abduction WFL. Knee flexion WFL. Ankle dorsiflexion WFL. Ankle plantarflexion WFL. Left Lower Extremity: Hip flexion WFL. Hip abduction WFL. Knee flexion 20 degrees to 90 degrees.? Extension -20 degrees ankle dorsiflexion WFL. Ankle plantarflexion WFL. Strength: Right Lower Extremity: Hip flexors 4/5. Hip abductors 4/5. Knee flexors 4/5. Knee extensors 4/5. Ankle dorsiflexors 4/5. Ankle plantarflexors 4/5. Left Lower Extremity: Hip flexors 4-/5. Hip abductors 4-/5. Knee flexors 3-/5. Knee extensors 3-/5. Ankle dorsiflexors 4-/5. Ankle plantarflexors 4-/5. BED MOBILITY/TRANSFERS? Sit-stand: SBA? Stand-sit: SBA ? GAIT? Assistive Device: FWW? Weight bearing: WBAT L Assist: SBA? Distance:? 50' ? Deviation: Minimally antalgic gait ? Balance: Static Sitting: Normal Dynamic Sitting: Normal Static Standing: Fair Dynamic Standing: Fair Assessment: Patient was sidetracked with onset of withdrawal symptoms in the past days which needed the patient to be put on hold due to decreased responsiveness.? Patient requires the use of a front wheel walker and contact-guard assist for all mobility ADL performance in order to maximize independence and reduce fall risk Patient presents with clinical signs and symptoms consistent with current/admitting diagnoses that have resulted to mobility limitations, gait instability, generalized weakness, and overall ADL decline as demonstrated by the following impairment level findings: 1.? Decreased strength to L? knee major muscle groups 2.? Impaired standing balance 3.? Impaired activity tolerance 4.? Limitation of joint range of motion in L knee 5.? Adverse effect of withdrawal symptoms Impairments are contributing to the following functional limitations: 1.? Decline in bed mobility skills 2.? Decline in transfer skills 3.? Difficulty with ambulation without assistive device and physical assistance 4.? Increased completion time for mobility ADL performance 5.? Increased risk for falls 6.? Difficulty with managing steps alone safely Goals: Goals X1 week 1. Supine-Sit independent? NOT MET, CONTINUE 2. Sit-Supine independent? NOT MET,? CONTINUE 3. Sit-Stand independent? NOT MET, CONTINUE 4. Stand-Sit independent with FWW? NOT MET, CONTINUE 5. Bed-Chair independent with FWW? NOT MET, CONTINUE 6. Chair-Bed independent with FWW? NOT MET, CONTINUE 7. Independent gait on level surface with use of FWW for at least 300 feet without report of pain nor dyspnea NOT MET, CONTINUE 8. Independent stair negotiation while holding onto B rails for at least 3 steps without report of pain nor dyspnea NOT MET, CONTINUE 9. Independent with home exercise program? NOT MET, CONTINUE 10. Good static and dynamic standing balance/tolerance NOT MET, CONTINUE DISCHARGE RECOMMENDATIONS: [] ? Home with no services [] [] ? Home with services [] [] ? Home with outpatient PT [] [X] ? SNF for continued rehabilitation.? Patient will benefit from [facility] facility placement for continued skilled physical therapy services in order to progress mobility level, strength, and balance in preparation for a safe discharge to home. [] ? Eligibility And Occupancy Interviewer Care [] [] ? SNF versus LTC based on ability to participate and progress [] TREATMENT CODE/TIME: OK Thank you for the opportunity to participate in the care of this patient. Maribel Macias PT, DPT, CLT [facility] [place], [place]
== END 2022-07-31 12:01 | disposition home or self-care (01) | DRG 469 ==
LOC: PDS 14:04 → MS 16:16 → PDS 07-19 11:21
PROVIDERS: Family Medicine; Internal Medicine; Student in an Organized Health Care Education/Training Program; Admitting Provider Internal Medicine; PCP Family Medicine; Visit Provider Internal Medicine
PROC: 0SRD0J9 Replacement of Left Knee Joint with Synthetic Substitute, Cemented, Open Approach (ICD-10-PCS; CPT 27447; principal; 2022-07-18 13:15)
DX: M17.12 Unilateral primary osteoarthritis, left knee (principal); G93.41 Metabolic encephalopathy; K29.01 Acute gastritis with bleeding; N17.9 Acute kidney failure, unspecified; K90.41 Non-celiac gluten sensitivity; T88.59XA Other complications of anesthesia, initial encounter; K52.9 Noninfective gastroenteritis and colitis, unspecified; I10 Essential (primary) hypertension; E53.8 Deficiency of other specified B group vitamins; M85.80 Other specified disorders of bone density and structure, unspecified site; R35.1 Nocturia; E03.9 Hypothyroidism, unspecified; E78.5 Hyperlipidemia, unspecified; Z95.0 Presence of cardiac pacemaker; F31.78 Bipolar disorder, in full remission, most recent episode mixed; I95.81 Postprocedural hypotension; R11.0 Nausea; G98.8 Other disorders of nervous system; F03.90 Unspecified dementia, unspecified severity, without behavioral disturbance, psychotic disturbance, mood disturbance, and anxiety; E83.42 Hypomagnesemia
CPT/HCPCS: 27447; 20985; C1776; 36415; 76942; 80048; 80053; 80076; 83935; 85027; 87493; 87635; 93308; 97110; 97162; 97530; J1650; 73560; 74018; 80184; 81003; 82565; 82607; 82728; 82746; 83540; 83550; 83735; 83880; 84100; 84300; 85014; 85018; 85025; 85049; 93971; 99222; 99231; 99232; 99239; J0690; J1100; J1170; J1941; J2060; J2405; J2560; J3475; J3490

== ENCOUNTER 2022-08-17 17:36 | Emergency (ER) | payer MEDICARE, BC, SELFPAY ==
[2022-08-17] VITALS (33 sets, daily range): BP systolic 87–130; BP diastolic 46–73; PULSE 62–81; RESP 13–22; TEMP 36.5; O2SAT 94–100
--- NOTE | 2022-08-17 18:00 | DI.RAD_ITS ---
Exam(s) XR CHEST 2V PA LATERAL EXAM: XR CHEST 2V PA LATERAL CLINICAL HISTORY: cough, r/o pneumonia TECHNIQUE: 2D digital imaging was performed of the chest. Two images were obtained. PA and lateral views were obtained. COMPARISON: CR CHEST 2 VIEWS PA,LAT from 02/01/2017 FINDINGS: MEDIASTINUM: Normal. HEART: Normal. PULMONARY VASCULATURE: Normal. LUNGS: Clear. PLEURAL SPACE: No pleural effusion or pneumothorax. BONE:Within normal limits for the patient's age. OTHER FINDINGS:Left pacer device in stable. IMPRESSION: No acute pulmonary findings. DATA REPOSITORY: RADIATION DOSE DELIVERED:
--- NOTE | 2022-08-17 18:08 | ED.GENADUL_ITS ---
Discharge Plan Disposition Patient Disposition: Home Condition: Stable Discharge Details Clinical Impression: Chronic cough, History of COVID-19 Primary Care Provider: Brandon Siddiqui ED Provider: Nida Gamboa Home Meds and New Rx's Prescriptions: Continued amlodipine 10 mg tablet 10 mg PO DAILY Qty: 30 11RF Hold Instructions: Resume on 07/25/22. Resume when systolic blood pressure is over 110 levothyroxine [Synthroid] 300 mcg tablet 300 mcg PO DAILY Qty: 30 11RF Centrum Silver 1 EACH tablet 1 ea PO DAILY cholecalciferol (vitamin D3) [Vitamin D3] 1,000 UNIT capsule 1,000 unit PO DAILY Qty: 100 Rx Instructions: Vitamin D supplement calcium carbonate [Calcium 500] 500 MG tablet 1,000 mg PO DAILY Qty: 180 Rx Instructions: 2 tablets daily quetiapine [Seroquel] 25 mg tablet 25 mg PO HS Qty: 30 11RF Rx Instructions: DIRECTED for for bipolar disorder cyanocobalamin (vitamin B-12) 1,000 mcg/mL solution 1,000 mcg IM QMONTH Qty: 4 3RF Rx Instructions: to be administered at home for E 53.9 (DME) BD Luer-Clarisse Syringe 3 mL 25 gauge x 1 syringe See Rx Instructions .ROUTE .MEDSUPPLY Qty: 4 3RF Rx Instructions: to administer Vitamin B-12 injections monthly E53.9 metoprolol succinate 25 mg tablet extended release 24 hr 25 mg PO DAILY Qty: 60 0RF bismuth subsalicylate [Pepto-Bismol] 262 mg/15 mL Suspension 524 mg PO Q30-60M PRN Rx Instructions: do not exceed 8 doses in a 24 hour period celecoxib [Celebrex] 200 mg capsule 200 mg PO BID Qty: 30 0RF acetaminophen 500 mg tablet 1,000 mg PO Q8H PRN Qty: 90 0RF Rx Instructions: Take two tablets up to every 8 hours as needed for pain docusate sodium [Colace] 100 mg capsule 100 mg PO BID Qty: 30 0RF gabapentin 300 mg capsule 300 mg PO QHS Qty: 14 0RF Rx Instructions: Take one tablet at bedtime oxycodone 5 mg tablet 5 mg PO Q4H PRN (Reason: severe post-operative pain) Qty: 18 0RF Rx Instructions: Take one tablet up to every 4 hours as needed for severe pain Discharge Instructions Instructions: Chronic Cough (ED) Additional Instructions: Your COVID test remains positive from your recent infection. This could be the cause of your chronic productive cough. Your chest x-ray today showed no evidence of pneumonia. Your blood tests today were reassuring and showed no evidence of acute concerning or significant findings. You also tested negative for RSV and influenza. Drink plenty of fluids and get plenty of rest. Follow-up with your primary care doctor in 1 week. Return to the emergency department with any worsening or new concerning symptoms. Discharge Data Discharge Physician: Nida Gamboa Medical Decision Making 87-year-old female with a history 3 of hypertension, hyperlipidemia, hypothyroidism, morbid obesity, depression who is 1 month status post total left knee arthroplasty who presents with chronic cough for the past month for evaluation to rule out pneumonia. Vitals within normal limits. Patient appears comfortable and nontoxic. Her oxygen saturation is 97% on room air. Lungs clear bilaterally. No lower extremity edema. Left anterior knee surgical site appears clean, dry and intact without signs of cellulitis. Considering patient's age and history, will obtain screening labs, fluvid and chest xray. Review of recent medical records note that patient did contract COVID while at the rehab post-surgery. This could certainly be causing her chronic cough. Labs and imaging reviewed. Normal white blood cell count. Procalcitonin within normal limits. Chest x-ray negative for pneumonia. Her COVID test remains positive from her recent infection. Her RSV and influenza are negative. Called patient's daughter Raul at home and informed her of results. Discussed that her chronic productive cough could be secondary to her recent COVID infection but also seen in the setting of postnasal drip, allergies, diet or other viral infection. Discussed that we have not seen indication for additional imaging or medications at this time and she is agreeable. She feels comfortable with patient going home. Advised to increase fluids and rest. Advised to follow up with the primary care doctor for re-evaluation. Usual and customary return precautions given prior to discharge. Medical Records Medical records reviewed: Yes I reviewed the patient's medical records. Imaging Data Radiologic Study: Radiologist's impression: XR Chest Exam date and time: 08/17/2022 6:34 PM Age: 87 years old Clinical indication:? Evaluate for pneumonia TECHNIQUE: Imaging protocol: Radiologic exam of the chest. Views: 2 views. COMPARISON: CR CHEST 2 VIEWS PA,LAT 02/01/2017 11:57 PM FINDINGS: Tubes, catheters and devices: A left chest pacer device is noted with leads in place. Lungs: No significant consolidation.? A prominent fat pad is noted at the lower left heart border. Pleural spaces:? No pleural effusion. No pneumothorax. Heart/Mediastinum: No cardiomegaly. Bones/joints: No acute osseous abnormality. Prominent left shoulder joint degenerative changes noted. IMPRESSION: No evidence of significant pneumonia. Lab Data Lab results reviewed: Yes I reviewed the patient's lab results. Labs: Laboratory Tests Range/Units 08/17/22 08/17/22 08/17/22 17:45 18:28 18:28 WBC (4.4-10.8) 10^3/uL RBC (3.93-5.22) 10^6/uL Hgb (11.2-15.7) g/dL Hct (36.0-46.0) % MCV (80-95) fL MCH (27.0-33.0) pg MCHC (32.0-36.0) % RDW (11.7-14.6) % Plt Count (130-400) 10^3/uL MPV (8.0-11.0) fL Immature Gran % Neutrophils % Lymphocytes % Monocytes % Eosinophils % Basophils % Nucleated RBC % (0.0-0.3) % Absolute Neutrophils (1.2-6.7) 10^3/uL Absolute Lymphocytes (1.2-3.4) 10^3/uL Absolute Monocytes (0.1-0.8) 10^3/uL Absolute Eosinophils (0.0-0.7) 10^3/uL Absolute Basophils (0.0-0.2) 10^3/uL Sodium (136-145) mmol/L 140 Potassium (3.5-5.1) mmol/L 4.8 Chloride (98-107) mmol/L 106 Carbon Dioxide (21.0-32.0) mmol/L 29.9 Anion Gap (3-11) mmol/L 4.1 BUN (7-18) mg/dL 20 H Creatinine (0.55-1.02) mg/dL 1.1 H Est GFR (CKD-EPI 2020) (mL/min/1.73m2) 49.24 Glucose (74-106) mg/dL 103 Calcium (8.5-10.1) mg/dL 8.3 L Total Bilirubin (0.2-1.0) mg/dL 0.3 AST (15-37) U/L 27 ALT (14-59) U/L 15 Alkaline Phosphatase (46-116) U/L 119 H Total Protein (6.4-8.2) g/dL 6.1 L Albumin (3.4-5.0) g/dL 2.7 L Procalcitonin ng/mL < 0.1 COVID-19 Source Nasopharynx SARS-CoV-2 (PCR) (Negative) Positive A Influenza Type A (PCR) (Negative) Negative Influenza Type B (PCR) (Negative) Negative RSV (PCR) (Negative) Negative Range/Units 08/17/22 18:28 WBC (4.4-10.8) 10^3/uL 7.82 RBC (3.93-5.22) 10^6/uL 3.13 L Hgb (11.2-15.7) g/dL 10.3 L Hct (36.0-46.0) % 32.7 L MCV (80-95) fL 105 H MCH (27.0-33.0) pg 32.9 MCHC (32.0-36.0) % 31.5 L RDW (11.7-14.6) % 14.5 Plt Count (130-400) 10^3/uL 298 MPV (8.0-11.0) fL 10.3 Immature Gran % 0.3 Neutrophils % 61.3 Lymphocytes % 12.0 Monocytes % 16.8 Eosinophils % 9.2 Basophils % 0.4 Nucleated RBC % (0.0-0.3) % 0.0 Absolute Neutrophils (1.2-6.7) 10^3/uL 4.80 Absolute Lymphocytes (1.2-3.4) 10^3/uL 0.94 L Absolute Monocytes (0.1-0.8) 10^3/uL 1.31 H Absolute Eosinophils (0.0-0.7) 10^3/uL 0.72 H Absolute Basophils (0.0-0.2) 10^3/uL 0.03 Sodium (136-145) mmol/L Potassium (3.5-5.1) mmol/L Chloride (98-107) mmol/L Carbon Dioxide (21.0-32.0) mmol/L Anion Gap (3-11) mmol/L BUN (7-18) mg/dL Creatinine (0.55-1.02) mg/dL Est GFR (CKD-EPI 2020) (mL/min/1.73m2) Glucose (74-106) mg/dL Calcium (8.5-10.1) mg/dL Total Bilirubin (0.2-1.0) mg/dL AST (15-37) U/L ALT (14-59) U/L Alkaline Phosphatase (46-116) U/L Total Protein (6.4-8.2) g/dL Albumin (3.4-5.0) g/dL Procalcitonin ng/mL COVID-19 Source SARS-CoV-2 (PCR) (Negative) Influenza Type A (PCR) (Negative) Influenza Type B (PCR) (Negative) RSV (PCR) (Negative) HPI General Mode of arrival: ambulatory . Date/Time Provider Initiated Documentation: 08/17/22 17:44 . Limitations to Documentation: no limitations . Information obtained by: patient . HPI Narrative: An 87-year-old female who is 1 month status post left total knee arthroplasty who presents for evaluation of chronic cough to rule out possible pneumonia. Patient reports that she has been coughing up yellow sputum since being at the rehab after her knee replacement. She states she has been eating and drinking normally. She denies any fever, chest pain or difficulty breathing. She denies any vomiting, diarrhea or urinary symptoms. Related Data Home Medications Medication Instructions Recorded Confirmed [id number] acid 0.4 1 ea PO DAILY 07/07/14 07/18/22 mg-lycopene 300 mcg-lutein 250 mcg tablet (Centrum Silver) cholecalciferol (vitamin D3) 25 1,000 unit PO DAILY #100 tab-caps 03/22/15 07/18/22 mcg (1,000 unit) capsule (Vitamin D3) calcium carbonate 500 mg calcium 1,000 mg PO DAILY #180 tabs 05/23/15 07/18/22 (1,250 mg) tablet (Calcium 500) quetiapine 25 mg tablet (Seroquel) 25 mg PO HS #30 tabs 01/02/22 07/18/22 amlodipine 10 mg tablet 10 mg PO DAILY #30 tabs 01/30/22 07/18/22 levothyroxine 300 mcg tablet 300 mcg PO DAILY #30 tab-caps 01/30/22 07/18/22 (Synthroid) cyanocobalamin (vitamin B-12) 1,000 mcg IM QMONTH #4 mL 06/05/22 07/18/22 1,000 mcg/mL injection solution syringe with needle 3 mL 25 gauge #4 ea 06/05/22 06/20/22 x 1 (BD Luer-Clarisse Syringe) bismuth subsalicylate 262 mg/15 mL 524 mg PO Q30-60M PRN 07/17/22 07/17/22 oral suspension (Pepto-Bismol) acetaminophen 500 mg tablet 1,000 mg PO Q8H PRN pain #90 tabs 07/18/22 celecoxib 200 mg capsule (Celebrex) 200 mg PO BID #30 caps 07/18/22 docusate sodium 100 mg capsule 100 mg PO BID #30 caps 07/18/22 (Colace) gabapentin 300 mg capsule 300 mg PO QHS #14 caps 07/18/22 oxycodone 5 mg tablet 5 mg PO Q4H PRN severe 07/18/22 post-operative pain #18 tabs metoprolol succinate 25 mg 25 mg PO DAILY #60 tabs 08/17/22 tablet,extended release 24 hr Previous Rx's Medication Instructions Recorded quetiapine 25 mg tablet (Seroquel) 25 mg PO HS #30 tabs 01/02/22 amlodipine 10 mg tablet 10 mg PO DAILY #30 tabs 01/30/22 levothyroxine 300 mcg tablet 300 mcg PO DAILY #30 tab-caps 01/30/22 (Synthroid) cyanocobalamin (vitamin B-12) 1,000 mcg IM QMONTH #4 mL 06/05/22 1,000 mcg/mL injection solution syringe with needle 3 mL 25 gauge #4 ea 06/05/22 x 1 (BD Luer-Clarisse Syringe) acetaminophen 500 mg tablet 1,000 mg PO Q8H PRN pain #90 tabs 07/18/22 celecoxib 200 mg capsule (Celebrex) 200 mg PO BID #30 caps 07/18/22 docusate sodium 100 mg capsule 100 mg PO BID #30 caps 07/18/22 (Colace) gabapentin 300 mg capsule 300 mg PO QHS #14 caps 07/18/22 oxycodone 5 mg tablet 5 mg PO Q4H PRN severe 07/18/22 post-operative pain #18 tabs metoprolol succinate 25 mg 25 mg PO DAILY #60 tabs 08/17/22 tablet,extended release 24 hr Allergies Allergy/AdvReac Type Severity Reaction Status Date / Time phenytoin Allergy Unknown Skin Rash Verified 07/17/22 11:13 gluten AdvReac Intermediate Other (See Unverified 07/19/22 17:49 Comment) ibuprofen AdvReac Intermediate vomiting Verified 07/17/22 11:13 General Stated Complaint: RespSymp POONAM: 3 Review of Systems All systems reviewed & are unremarkable except as noted in HPI and below Constitutional Constitutional: Reports as per HPI, Denies chills and Denies fever(s) Eyes Eyes: Denies blurry vision ENT Ears, Nose, Mouth, and Throat: Denies dizziness, Denies sore throat and Denies throat swelling Cardiovascular Cardiovascular: Denies chest pain and Denies dyspnea Respiratory Respiratory: Denies cough, Reports excessive phlegm production and Denies dyspnea Gastrointestinal Gastrointestinal: Denies abdominal pain, Denies diarrhea and Denies vomiting Genitourinary Genitourinary: Denies hematuria and Denies dysuria Musculoskeletal Musculoskeletal: Denies back pain and Denies numbness Integumentary/Breasts Skin/Breast: Denies lesions and Denies rash Neurologic Neurologic: Denies dizziness, Denies localized weakness and Denies numbness Allergic/Immunologic Allergic/Immunologic: Denies throat swelling PFSH All Active Problems (Updated 08/17/22 @ 20:00 by Nida Gamboa DO) Chronic cough (Acute) History of COVID-19 (Acute) Pain of left calf (Acute) Primary osteoarthritis of left knee (Acute) s/p TKA: 07/18/22 Steroid injection: 03/27/2022 Osteoarthritis of knees, bilateral (Chronic) Left knee - Depo-Medrol injection: 03/27/22 Cellulitis (Acute) Chronic diarrhea (Acute) UTI (urinary tract infection) (Acute) Depressive disorder (Chronic 08/26/81) & ANXIETY; SERTRALINE 06/2011; JENNA 10/10/2007 Chest pain (Acute 11/23/11) Herpes zoster (Acute 11/23/11) Knee pain (Acute 03/19/15) Syncope and collapse (Acute 11/23/11) Trigeminal herpes zoster (Acute 04/23/17) 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) Vitamin B deficiency (Chronic 08/26/90) Sleep disturbance, unspecified (Chronic 11/23/11) Osteopenia (Chronic 05/11/15) DEXA 04/2015 Nocturia more than twice per night (Chronic 06/26/17) Knee pain, left (Chronic 07/05/15) 12/2004 x-ray mild spurring; 02/02/17 mod DJD, nafisa lateral component 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 Patient requested a refill of amlodipine, which we sent. She can follow-up routinely for six-month blood pressure checks. Chronic diarrhea (Chronic 03/09/00) GI consult 2002, responded to augmentin 875/125 BID for bacterial overgrowth; failed to respond to Amox 2004 but did in 2007. 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) RECURRENT SYNCOPE [facility] [place] Bipolar disorder, in full remission, most recent episode mixed (Chronic) per Dr Maya Irby, psychiatry, [place] Arthritis of knee, left (Chronic 03/06/17) pos x-rays, three compartment 01/2017, valgus deformity Medical History (Updated 08/17/22 @ 20:00 by Nida Gamboa DO) Benign essential hypertension (08/26/83) Depression Hyperlipidemia (11/23/11) Hypothyroidism (05/26/87) Morbid obesity (11/23/11) Surgical History (Updated 08/17/22 @ 18:15 by Nida Gamboa DO) Appendectomy (~1953) H/O breast biopsy (~09/25/03) H/O colonoscopy (~08/21/00) H/O foot surgery Dr. Palafox, Podiatry 1993 H/O left breast biopsy H/O: hysterectomy (~08/26/70) History of cataract surgery (05/13/18) History of left knee replacement Open Carpal Tunnel release (08/27/79) [place] Pacemaker (08/10/98) [facility] [place] Replaced Dr. Forde 04/03/13 Family History Mother , (smoker), cause DC at age 72. Myocardial infarct COPD (chronic obstructive pulmonary disease) Alcohol abuse Father , 52 Myocardial infarct Smoker Alcohol abuse Sister , age 80 Diabetes Osteoporosis Arthritis Myocardial infarct Sister , 63, angioplasty, dies of DC Myocardial infarct Brother , 74, CABG age 58 of lung ca Alcohol abuse Lung cancer Brother , 52 Myocardial infarct Other Hyperlipidemia Social History Smoking/Tobacco Use Status: Never Smoking risk assessment performed?: Yes Alcohol Intake: former Year quit: 1986 Drug use: Never Substance use type: does not use Adopted: No Foster care: No Housing: house Number of Children: 6 Communication Needs: None current occupation: retired [employer]IST Pets and animals: No Current gender identity: female Other: support from 108 pen pals over country, Son Raul [place] What is your relationship status?: Panel score (0-1 are the most socially isolated patients): 0 What type of physical activity do you participate in: none Seatbelt use: always Drive intox or ride w/intox boat driver: No Water heater temp set <120 deg: Yes Working smoke detector in home: Yes Fire extinguisher in home: Yes Do you feel safe at home: Yes Do you feel safe in your relationship?: Yes Exam Const General: cooperative, healthy appearing and no acute distress HENSD Head: normal to inspection Face and sinus: normal facial exam Eyes General: appearance normal, both eyes and all related structures Pupils: PERRL EOM: EOM intact bilaterally Neck Neck: normal visual inspection and No submandibular swelling Lymphatic: no lymphadenopathy noted Chest Chest: normal inspection of the chest and no tenderness Resp Effort & Inspection: normal respiratory effort and able to speak in complete sentences Auscultation: clear to auscultation bilaterally Cardio Rate: regular rate Rhythm: regular rhythm GI Inspection: normal to inspection Palpation: soft, not firm, not rigid and nontender Auscultation: normal bowel sounds Back/Spine/Pelvis Thoracic/Lumbar Spine: thoracic and lumbar spine normal to inspection Pelvis: no pain with anterior-posterior compression Skin General skin exam: no rashes or lesions noted Neuro General: patient alert, patient awake and patient oriented x3 Cognition: normal cognition Speech: speech normal Motor: muscle tone normal throughout Sensory Exam: no sensory deficits noted Extrem General: normal to inspection, full ROM, capillary refill normal, no calf tenderness bilaterally and no edema Psych Appearance: grossly normal Mental Status: mental status grossly normal Speech and Movement: speech and movement normal Affect: normal affect
[2022-08-17 18:36] LABS: Abs Immature Grans 0.02 10^3/uL (0.0-0.06); Absolute Basophil Count 0.03 10^3/uL (0.0-0.2); Absolute Eosinophil Count 0.72 10^3/uL (0.0-0.7); Absolute Lymphocyte Count 0.94 10^3/uL (1.2-3.4); Absolute Monocyte Count 1.31 10^3/uL (0.1-0.8); Basophils % 0.4; Eosinophils % 9.2; HCT 32.7 % (36.0-46.0); HGB 10.3 g/dL (11.2-15.7); Immature Grans % 0.3; MCH 32.9 pg (27.0-33.0); MCHC 31.5 % (32.0-36.0); MCV 105 fL (80-95); MPV 10.3 fL (8.0-11.0); Monocytes % 16.8; Neutrophils % 61.3; Platelet Count 298 10^3/uL (130-400); RBC 3.13 10^6/uL (3.93-5.22); RDW 14.5 % (11.7-14.6); RDW-SD 55.8 fL; WBC 7.82 10^3/uL (4.4-10.8)
--- NOTE | 2022-08-17 18:50 | DI.VRAD_ITS ---
PROCEDURE INFORMATION: Exam: XR Chest Exam date and time: 08/17/2022 6:34 PM Age: 87 years old Clinical indication: Evaluate for pneumonia TECHNIQUE: Imaging protocol: Radiologic exam of the chest. Views: 2 views. COMPARISON: CR CHEST 2 VIEWS PA,LAT 02/01/2017 11:57 PM FINDINGS: Tubes, catheters and devices: A left chest pacer device is noted with leads in place. Lungs: No significant consolidation. A prominent fat pad is noted at the lower left heart border. Pleural spaces: No pleural effusion. No pneumothorax. Heart/Mediastinum: No cardiomegaly. Bones/joints: No acute osseous abnormality. Prominent left shoulder joint degenerative changes noted. IMPRESSION: No evidence of significant pneumonia. Dictated and Authenticated by: Lashell Mcdonald MD. Ordering:BEVERLY Alva MD
[2022-08-17 18:54] LABS: ALT 15 U/L (14-59); AST 27 U/L (15-37); Albumin 2.7 g/dL (3.4-5.0); Alkaline Phosphatase 119 U/L (46-116); Anion Gap 4.1 mmol/L (3-11); BUN 20 mg/dL (7-18); Bilirubin, Total 0.3 mg/dL (0.2-1.0); CO2 29.9 mmol/L (21.0-32.0); CREATININE 1.1 mg/dL (0.55-1.02); Calcium 8.3 mg/dL (8.5-10.1); Chloride 106 mmol/L (98-107); Estimated GFR 49.24 (mL/min/1.73m2); Glucose 103 mg/dL (74-106); Potassium 4.8 mmol/L (3.5-5.1); Sodium 140 mmol/L (136-145); Total Protein 6.1 g/dL (6.4-8.2)
[2022-08-17 19:19] LABS: Influenza A PCR Negative (Negative); Influenza B PCR Negative (Negative); RSV PCR Negative (Negative)
[2022-08-17 19:23] LABS: COVID-19 PCR Positive (Negative); Source Nasopharynx
[2022-08-17 19:56] LABS: Procalcitonin < 0.1 ng/mL
== END 2022-08-17 21:20 | disposition home or self-care (01) ==
PROVIDERS: Emergency Provider Physician Assistant; PCP Family Medicine
DX: U07.1 COVID-19 (principal); I10 Essential (primary) hypertension; E03.9 Hypothyroidism, unspecified; Z96.652 Presence of left artificial knee joint
CPT/HCPCS: 80053; 84145; 87637; 99282; 99283; 71046; 85025

== ENCOUNTER 2022-09-04 12:00 | Outpatient (CLI) | payer MEDICARE, BC, SELFPAY ==
--- NOTE | 2022-09-04 13:45 | DI.RAD_ITS ---
Exam(s) XR KNEE LT 1V XR STANDING ALIGNMENT EXAM: XR STANDING ALIGNMENT CLINICAL HISTORY: 1ST POST OP L TKA. TECHNIQUE: 2D digital imaging was performed. Standing AP views were performed from the pelvis throu gh the ankles. Lateral view left knee COMPARISON: CR XR KNEE LT 2V AP,LAT from 07/21/2022 CR XR KNEE LT 1V from 09/04/2022 FINDINGS: The exam is limited by patient body habitus. BONES: No acute fracture is present. No bony destructive lesion is seen. Leg length discrepancy: The right femoral head projects 4-5 millimeters superior to the left. JOINTS: Knees: No change in alignment left knee prosthesis. There is some varus angulation at the le ft knee. Right knee shows degenerative changes greater laterally as well as chondrocalcinosis. The ankle joints are unremarkable. The Hip joint spaces are maintained. Mild acetabular spurring. SOFT TISSUE: Bilateral marked lower leg edema. IMPRESSION: Unremarkable left knee prosthesis. Mild leg length discrepancy. DATA REPOSITORY: RADIATION DOSE DELIVERED:
--- NOTE | 2022-09-04 14:15 | DI.RAD_ITS ---
Exam(s) XR CHEST 2V PA LATERAL EXAM: XR CHEST 2V PA LATERAL CLINICAL HISTORY: dyspnea TECHNIQUE: 2D digital imaging was performed. COMPARISON: CR,XR XR CHEST 2V PA LATERAL from 08/17/2022 FINDINGS: HEART: Normal size. Aorta: Not dilated. Pacemaker. PULMONARY VASCULATURE: Normal. LUNGS: Clear. No focal infiltrate or pulmonary edema. PLEURAL SPACE: No pleural effusion or pneumothorax. BONE:Unremarkable for age. IMPRESSION: No acute abnormality. DATA REPOSITORY: RADIATION DOSE DELIVERED:
== END 2022-09-04 12:01 | disposition home or self-care (01) ==
LOC: DIORS 09-05 08:51
PROVIDERS: PCP Family Medicine; Visit Provider Student in an Organized Health Care Education/Training Program
DX: Z96.652 Presence of left artificial knee joint (principal); Z47.1 Aftercare following joint replacement surgery
CPT/HCPCS: 71046; 73560; 77073

== ENCOUNTER 2022-09-04 16:04 | Outpatient (CLI) | payer MEDICARE, BC, SELFPAY ==
[2022-09-04 15:43] LABS: HCT 32.2 % (36.0-46.0); HGB 10.2 g/dL (11.2-15.7); MCH 31.7 pg (27.0-33.0); MCHC 31.7 % (32.0-36.0); MCV 100 fL (80-95); MPV 11.5 fL (8.0-11.0); Platelet Count 230 10^3/uL (130-400); RBC 3.22 10^6/uL (3.93-5.22); RDW 13.8 % (11.7-14.6); RDW-SD 50.9 fL; WBC 8.26 10^3/uL (4.4-10.8)
[2022-09-04 16:14] LABS: Anion Gap 10.9 mmol/L (3-11); BUN 10 mg/dL (7-18); CO2 25.1 mmol/L (21.0-32.0); Calcium 9.1 mg/dL (8.5-10.1); Chloride 105 mmol/L (98-107); Estimated GFR 55.21 (mL/min/1.73m2); Glucose 102 mg/dL (74-106); NT-proBNP 1967 pg/mL (<300); Potassium 3.9 mmol/L (3.5-5.1); Sodium 141 mmol/L (136-145)
== END 2022-09-04 16:05 | disposition home or self-care (01) ==
LOC: LBO 16:05
PROVIDERS: PCP Family Medicine; Visit Provider Student in an Organized Health Care Education/Training Program
DX: E87.5 Hyperkalemia (principal); I50.9 Heart failure, unspecified; F31.78 Bipolar disorder, in full remission, most recent episode mixed
CPT/HCPCS: 36415; 80048; 85027; 71046; 73560; 77073; 83880

== ENCOUNTER → 2022-10-16 10:37 | Outpatient (BNVA) | payer MEDICARE, BC, SELFPAY | PROVIDERS: PCP Family Medicine; Referring Provider Family Medicine; Visit Provider Student in an Organized Health Care Education/Training Program | DX: Z47.1 Aftercare following joint replacement surgery (principal); Z96.652 Presence of left artificial knee joint ==

== ENCOUNTER 2023-05-07 11:59 | Outpatient (CLI) | payer MEDICARE, BC, SELFPAY ==
--- NOTE | 2023-05-07 10:45 | DI.RAD_ITS ---
Exam(s) XR SHOULDER RT COMPLETE 2+V EXAM: XR SHOULDER RT COMPLETE 2+V CLINICAL HISTORY: right shoulder pain. TECHNIQUE: 2D digital imaging was performed. Five views. COMPARISON: CR RIGHT SHOULDER COMPLETE from 01/29/2018 FINDINGS: BONES: No acute fracture is present. No bony destructive lesion is seen. No spurring at the tip of t he acromion. Spurring at the greater tuberosity JOINTS: No dislocation present. Glenohumeral joint space is maintained. SOFT TISSUE: Faint calcification above the greater tuberosity consistent with calcific tendinosis.. Pacemaker noted. IMPRESSION: Mild degenerative changes and calcific tendinosis. DATA REPOSITORY: RADIATION DOSE DELIVERED:
--- NOTE | 2023-05-07 10:45 | DI.RAD_ITS ---
Exam(s) XR HAND RT COMPLETE EXAM: XR HAND RT COMPLETE CLINICAL HISTORY: bilateral hand pain. TECHNIQUE: 2D digital imaging was performed. COMPARISON: CR XR HAND LT COMPLETE from 05/07/2023 FINDINGS: 3 views No evidence of acute fracture nor dislocation. There lesser findings at the metacarpophalangeal joint the right hand when compared to the left. The re is degenerative narrowing of the medial aspect of the metacarpophalangeal joint of the 2nd-index f arie. No erosions at this level nor the other M CP joints. At the PIP joint of the 3rd-middle fing er there is asymmetric narrowing of the medial aspect of this joint space. Lesser amount of the same is seen at the PIP joint of the 2nd-index finger. Also at the interphalangeal joint of the thumb. At the DIP joint levels there is some degenerative change, most evident in the 3rd finger. At the level the wrist there are no fractures and less degenerative change in the 1st carpal row radi ocarpal joint when compared to the other side. There is also minimal if any significant degenerative change at the 1st carpometacarpal joint. IMPRESSION: As above. DATA REPOSITORY: RADIATION DOSE DELIVERED:
--- NOTE | 2023-05-07 10:45 | DI.RAD_ITS ---
Exam(s) XR HAND LT COMPLETE EXAM: XR HAND LT COMPLETE CLINICAL HISTORY: bilateral hand pain. TECHNIQUE: 2D digital imaging was performed. COMPARISON: CR XR HAND RT COMPLETE from 05/07/2023 FINDINGS: 3 views No fractures evident. There this subluxation of the 3rd metacarpophalangeal joint the head of the 3r d metacarpal subluxed dorsally. No erosions. Lesser amount of subluxation is also evident at the ot her MCP joints. There is also medial deviation of the phalanges of the 3rd, 4th, and 5th fingers. M CP joint of the thumb appears unremarkable but there is degenerative change in mild subluxation of th e interphalangeal joint of the thumb evident. The proximal interphalangeal joints of the 2nd through 5th fingers appear unremarkable. The DIP joints exhibit some degenerative change. First carpometacarpal joint appears unremarkable. At the level the wrist there is significant degenerative narrowing of the radiocarpal joint and degen erative subarticular cysts on the radial side of this joint. Also minimal widening of the scapholuna te distance. IMPRESSION: Findings at the metacarpal and interphalangeal joints as described above. Significant subluxation at the 3rd metacarpophalangeal joint. No erosions. Degenerative changes in the radiocarpal joint. No obvious degenerative changes in the 1st carpometacarpal joint. DATA REPOSITORY: RADIATION DOSE DELIVERED:
== END 2023-05-07 12:00 | disposition home or self-care (01) ==
LOC: DIORS 11:59
PROVIDERS: PCP Family Medicine; Referring Provider Family Medicine; Visit Provider Physician Assistant
DX: M19.041 Primary osteoarthritis, right hand (principal); M19.042 Primary osteoarthritis, left hand; M19.011 Primary osteoarthritis, right shoulder; M75.81 Other shoulder lesions, right shoulder; M66.242 Spontaneous rupture of extensor tendons, left hand
CPT/HCPCS: 20610; 99214; 73030; 73130; J1040

== ENCOUNTER 2023-06-04 04:49 | Outpatient (CLI) | payer MEDICARE, BC, SELFPAY ==
[2023-06-04 09:56] LABS: Abs Immature Grans 0.02 10^3/uL (0.0-0.06); Absolute Basophil Count 0.03 10^3/uL (0.0-0.2); Absolute Eosinophil Count 0.34 10^3/uL (0.0-0.7); Absolute Lymphocyte Count 2.19 10^3/uL (1.2-3.4); Absolute Neutrophil Count 4.69 10^3/uL (1.2-6.7); Basophils % 0.4; Eosinophils % 4.2; HCT 36.2 % (36.0-46.0); HGB 11.5 g/dL (11.2-15.7); Immature Grans % 0.2; Lymphocytes % 27.1; MCH 30.1 pg (27.0-33.0); MCHC 31.8 % (32.0-36.0); MCV 95 fL (80-95); MPV 9.4 fL (8.0-11.0); Monocytes % 9.9; Neutrophils % 58.2; Platelet Count 388 10^3/uL (130-400); RBC 3.82 10^6/uL (3.93-5.22); RDW 15.5 % (11.7-14.6); RDW-SD 54.3 fL; WBC 8.07 10^3/uL (4.4-10.8)
[2023-06-04 10:30] LABS: C-Reactive Protein 5.26 mg/dL (0.0-0.3); TSH (W/Ref FT4) 13.56 uIU/mL (0.36-3.74)
[2023-06-04 10:45] LABS: FREE T4 0.92 ng/dL (0.76-1.46)
[2023-06-04 17:11] LABS: Rheumatoid Factor <8.6 IU/mL (<12.0)
[2023-06-05 09:52] LABS: IgA 48 mg/dL (85-499)
[2023-06-05 10:03] LABS: dsDNA Ab, IgG <12.3 IU/mL (<30.0)
[2023-06-05 15:48] LABS: ANA Interpretation Negative (Negative)
[2023-06-05 19:25] LABS: Tissue Transglutaminase Ab IgA <1.2 U/mL; Tissue Transglutaminase Ab IgG 3.4 U/mL
[2023-06-06 10:33] LABS: IgE 187 IU/mL (<158)
== END 2023-06-04 04:50 | disposition home or self-care (01) ==
LOC: LBO 04:49
PROVIDERS: Student in an Organized Health Care Education/Training Program; PCP Family Medicine; Visit Provider Family Medicine
DX: R19.7 Diarrhea, unspecified (principal); R60.9 Edema, unspecified; M25.50 Pain in unspecified joint
CPT/HCPCS: 36415; 82784; 82785; 83516; 83993; 84439; 84443; 85025; 86038; 86140; 86225; 86431

== ENCOUNTER 2023-10-29 15:22 | Outpatient (CLI) | payer MEDICARE, BC, SELFPAY ==
--- NOTE | 2023-10-29 09:30 | DI.RAD_ITS ---
Exam(s) XR KNEE LT 2V AP,LAT EXAM: XR KNEE LT 2V AP,LAT CLINICAL HISTORY: ANNUAL F/U L TKA. TECHNIQUE: 2D digital imaging was performed. Three views. COMPARISON: CR XR KNEE LT 1V from 09/04/2022 FINDINGS: BONES: No acute fracture is present. No bony destructive lesion is seen. JOINTS: There has been no change in the alignment of the total knee prosthesis. No joint effusion is seen. SOFT TISSUE: Anterior swelling. IMPRESSION: No acute abnormality. DATA REPOSITORY: RADIATION DOSE DELIVERED:
== END 2023-10-29 15:23 | disposition home or self-care (01) ==
LOC: DIORS 15:22
PROVIDERS: PCP Family Medicine; Referring Provider Family Medicine; Visit Provider Student in an Organized Health Care Education/Training Program
DX: M75.81 Other shoulder lesions, right shoulder (principal); Z96.652 Presence of left artificial knee joint
CPT/HCPCS: 20610; 73560; J1040

== ENCOUNTER 2024-06-11 14:24 | Outpatient (CLI) | payer MEDICARE, BC, SELFPAY ==
--- NOTE | 2024-06-11 14:15 | RT.EKG_ITS ---
APPROVED REPORT Exam: Resting ECG Reason for Exam: pacemaker Patient Location: O HR:85 bpm ECG Measurements Heart Rate 85 AXIS IA 169 P -43 QRSd 85 QRS -33 QT 352 T 9 QTc 419 Conclusion Sinus rhythm...normal P axis, V-rate 50- 99 Left axis deviation...QRS axis (-30,-90)
== END 2024-06-11 14:25 | disposition home or self-care (01) ==
LOC: DI.CARD 14:28
PROVIDERS: PCP Family Medicine; Referring Provider Family Medicine; Visit Provider Student in an Organized Health Care Education/Training Program
DX: Z95.0 Presence of cardiac pacemaker (principal); R07.9 Chest pain, unspecified
CPT/HCPCS: 93010

== ENCOUNTER → 2024-06-11 14:24 | Outpatient (BNVA) | payer MEDICARE, BC, SELFPAY | PROVIDERS: PCP Family Medicine; Referring Provider Family Medicine; Visit Provider Student in an Organized Health Care Education/Training Program | DX: R00.0 Tachycardia, unspecified (principal); Z45.018 Encounter for adjustment and management of other part of cardiac pacemaker | CPT/HCPCS: 93280 ==

== ENCOUNTER 2024-11-24 01:55 | Outpatient (CLI) | payer MEDICARE, BC, SELFPAY ==
[2024-11-24 11:35] LABS: Anion Gap 5.9 mmol/L (3-11); BUN 20 mg/dL (7-18); CO2 29.1 mmol/L (21.0-32.0); Calcium 9.1 mg/dL (8.5-10.1); Chloride 108 mmol/L (98-107); Estimated GFR 54.53 (mL/min/1.73m2); Glucose 98 mg/dL (74-106); Potassium 4.4 mmol/L (3.5-5.1); Sodium 143 mmol/L (136-145); TSH (W/Ref FT4) 2.79 uIU/mL (0.36-3.74)
== END 2024-11-24 01:56 | disposition home or self-care (01) ==
LOC: LBO 01:55
PROVIDERS: PCP Family Medicine; Visit Provider Nurse Practitioner Family
DX: E03.9 Hypothyroidism, unspecified (principal); K52.9 Noninfective gastroenteritis and colitis, unspecified
CPT/HCPCS: 36415; 80048; 84443

== ENCOUNTER → 2024-12-10 14:49 | Outpatient (BNVA) | payer MEDICARE, BC, SELFPAY | PROVIDERS: PCP Family Medicine; Referring Provider Family Medicine; Visit Provider Registered Nurse | DX: Z95.810 Presence of automatic (implantable) cardiac defibrillator (principal) | CPT/HCPCS: 93280 ==

== ENCOUNTER 2025-03-02 10:15 | Emergency (ER) | payer MEDICARE, BC, SELFPAY ==
[2025-03-02 10:21] VITALS: BP 153/82; PULSE 109; RESP 18; TEMP 36.8; O2SAT 98
[2025-03-02] MEDS: FLUCONAZOLE 200 MG/100 ML BAG 100 MG IVPB (11:24)
[2025-03-02 11:44] LABS: Abs Immature Grans 0.02 10^3/uL (0.0-0.06); HCT 33.4 % (36.0-46.0); HGB 10.8 g/dL (11.2-15.7); Immature Grans % 0.3 %; MCH 31.8 pg (27.0-33.0); MCHC 32.3 % (32.0-36.0); MCV 98 fL (80-95); MPV 9.6 fL (8.0-11.0); Platelet Count 308 10^3/uL (130-400); RBC 3.40 10^6/uL (3.93-5.22); RDW 14.2 % (11.7-14.6); RDW-SD 51.0 fL; WBC 7.94 10^3/uL (4.4-10.8)
[2025-03-02 12:23] VITALS: BP 130/72; PULSE 78; RESP 18; O2SAT 98
[2025-03-02 12:32] LABS: Anion Gap 8.5 mmol/L (3-11); BUN 18 mg/dL (7-18); CO2 28.5 mmol/L (21.0-32.0); Calcium 8.4 mg/dL (8.5-10.1); Chloride 106 mmol/L (98-107); Estimated GFR 70.83 (mL/min/1.73m2); Glucose 90 mg/dL (74-106); Potassium 4.7 mmol/L (3.5-5.1); Sodium 143 mmol/L (136-145)
[2025-03-02 13:02] LABS: Glucose Negative (Negative)
[2025-03-02 13:32] VITALS: BP 144/70; PULSE 100; RESP 18; O2SAT 98
--- NOTE | 2025-03-02 14:05 | W.ED.GENAD ---
Discharge Plan Disposition Patient Disposition: Home Condition: Stable Discharge Details Clinical Impression: Shanae infection of flexural skin Primary Care Provider: Brandon Siddiqui ED Provider: Maryam Ya Home Meds and New Rx's Prescriptions: New clotrimazole 1 % cream 1 applic topical BID Qty: 45 2RF fluconazole 150 mg tablet 150 mg PO ONCE Qty: 1 0RF Rx Instructions: as a single dose on 03/05 No Action (DME) compression stockings See Rx Instructions .Route .MEDSUPPLY Qty: 1 0RF Rx Instructions: As directed aspirin [Adult Aspirin Regimen] 81 mg tablet,delayed release (DR/EC) 81 mg PO DAILY Centrum Silver 1 EACH tablet 1 ea PO DAILY amlodipine 10 mg tablet 10 mg PO DAILY Qty: 30 11RF quetiapine [Seroquel] 25 mg tablet 25 mg PO HS Qty: 30 11RF Rx Instructions: DIRECTED for for bipolar disorder levothyroxine 300 mcg tablet See Rx Instructions .ROUTE .COMPLEX Qty: 90 3RF Dose Instruction: TAKE ONE TABLET BY MOUTH EVERY DAY Rx Instructions: TAKE ONE TABLET BY MOUTH EVERY DAY cyanocobalamin (vitamin B-12) 1,000 mcg/mL solution 1,000 mcg IM QMONTH Qty: 4 3RF Rx Instructions: to be administered at home for E 53.9 (DME) BD Luer-Clarisse Syringe 3 mL 25 gauge x 1 syringe See Rx Instructions .ROUTE .MEDSUPPLY Qty: 4 3RF Rx Instructions: to administer Vitamin B-12 injections monthly E53.9 acetaminophen 500 mg tablet 1,000 mg PO Q8H PRN Qty: 90 0RF Rx Instructions: Take two tablets up to every 8 hours as needed for pain Discharge Instructions Instructions: Intertrigo (DC) Additional Instructions: clean skin clean and dry. wash area with mild cleanser and then dry with a blow dryer on cool setting keep area exposed to air as much as possible use a drying power like Zeasorb (microporous cellulose) apply the topical CLOTRIMAZOLE cream (prescribed) TWICE DAILY take the oral diflucan as prescribed: single dose taken on 03/05 follow up with PCP for re-evalaution HPI General Date/Time Provider Initiated Documentation: 03/02/25 10:32. Limitations to Documentation: no limitations. Information obtained by: patient. HPI Narrative: 89-year-old female with past medical history including hypertension, bipolar disorder, hypothyroid presents for evaluation of groin rash. The patient reports that she had a rash on her leg previously and had been using a topical cream and that seemed to improve it, but now its returned she notices it in her bilateral groin and extending into her vagina. She denies any burning with urination. She states that she does wear a diaper. Related Data Home Medications ?Medication ?Instructions ?Recorded ?Confirmed [id number] acid 0.4 1 ea PO DAILY 07/07/14 03/02/25 mg-lycopene 300 mcg-lutein 250 mcg tablet (Centrum Silver) acetaminophen 500 mg tablet 1,000 mg (2 x 500 mg) PO Q8H PRN 07/18/22 03/02/25 pain #90 tabs compression stockings #1 ea 10/16/22 12/10/24 amlodipine 10 mg tablet 10 mg PO DAILY #30 tabs 04/29/24 03/02/25 quetiapine 25 mg tablet (Seroquel) 25 mg PO HS #30 tabs 05/12/24 03/02/25 aspirin 81 mg tablet,delayed 81 mg PO DAILY 06/11/24 03/02/25 release (Adult Aspirin Regimen) levothyroxine 300 mcg tablet See Rx Instructions .Route 10/24/24 03/02/25 .COMPLEX #90 tabs cyanocobalamin (vitamin B-12) 1,000 mcg IM QMONTH #4 mL 02/10/25 03/02/25 1,000 mcg/mL injection solution syringe with needle 3 mL 25 gauge #4 ea 02/12/25 x 1 (BD Luer-Clarisse Syringe) clotrimazole 1 % topical cream 1 applic topical BID #45 grams 03/02/25 fluconazole 150 mg tablet 150 mg PO ONCE #1 tab 03/02/25 Previous Rx's ?Medication ?Instructions ?Recorded acetaminophen 500 mg tablet 1,000 mg (2 x 500 mg) PO Q8H PRN 07/18/22 pain #90 tabs compression stockings #1 ea 10/16/22 amlodipine 10 mg tablet 10 mg PO DAILY #30 tabs 04/29/24 quetiapine 25 mg tablet (Seroquel) 25 mg PO HS #30 tabs 05/12/24 levothyroxine 300 mcg tablet See Rx Instructions .Route 10/24/24 .COMPLEX #90 tabs cyanocobalamin (vitamin B-12) 1,000 mcg IM QMONTH #4 mL 02/10/25 1,000 mcg/mL injection solution syringe with needle 3 mL 25 gauge #4 ea 02/12/25 x 1 (BD Luer-Clarisse Syringe) clotrimazole 1 % topical cream 1 applic topical BID #45 grams 03/02/25 fluconazole 150 mg tablet 150 mg PO ONCE #1 tab 03/02/25 Allergies Allergy/AdvReac Type Severity Reaction Status Date / Time phenytoin Allergy Unknown Skin Rash Verified 03/02/25 10:26 gluten AdvReac Intermediate Other (See Verified 03/02/25 10:26 Comment) ibuprofen AdvReac Intermediate vomiting Verified 03/02/25 10:26 General Stated Complaint: RashLesion POONAM: 3 Exam Narrative Exam Narrative: Review of Systems: All systems reviewed & are unremarkable except as noted in HPI and below Well-developed, no acute distress NCAT PERRL, normal conjunctiva RRR Unlabored respiratory effort Nondistended abdomen Intertriginous erythema in bilateral inguinal folds, area very moist, satellite lesions noted Course Vital Signs Vital signs: Vital Signs Temperature 36.8 C 03/02/25 10:21 Pulse 109 H 03/02/25 10:21 Respiratory Rate 18 03/02/25 10:21 Blood Pressure 153/82 H 03/02/25 10:21 Pulse Oximetry 98 03/02/25 10:21 Temperature 36.8 C 03/02/25 10:21 Temperature Source Tympanic 03/02/25 12:23 Pulse 100 H 03/02/25 13:32 Respiratory Rate 18 03/02/25 13:32 Blood Pressure 144/70 H 03/02/25 13:32 Blood Pressure Mean 91 03/02/25 12:23 Pulse Oximetry 98 03/02/25 13:32 Pain Level 8 03/02/25 12:23 Lab/Test Results Lab/Test Results: Laboratory Tests Range/Units 03/02/25 03/02/25 11:25 12:20 WBC (4.4-10.8) 10^3/uL 7.94 RBC (3.93-5.22) 10^6/uL 3.40 L Hgb (11.2-15.7) g/dL 10.8 L Hct (36.0-46.0) % 33.4 L MCV (80-95) fL 98 H MCH (27.0-33.0) pg 31.8 MCHC (32.0-36.0) % 32.3 RDW (11.7-14.6) % 14.2 Plt Count (130-400) 10^3/uL 308 MPV (8.0-11.0) fL 9.6 Immature Gran % % 0.3 Neutrophils % % 68.8 Lymphocytes % % 16.0 Monocytes % % 12.0 Eosinophils % % 2.6 Basophils % % 0.3 Nucleated RBC % (0.0-0.3) % 0.0 Absolute Neutrophils (1.2-6.7) 10^3/uL 5.47 Absolute Lymphocytes (1.2-3.4) 10^3/uL 1.27 Absolute Monocytes (0.1-0.8) 10^3/uL 0.95 H Absolute Eosinophils (0.0-0.7) 10^3/uL 0.21 Absolute Basophils (0.0-0.2) 10^3/uL 0.02 Sodium (136-145) mmol/L 143 Potassium (3.5-5.1) mmol/L 4.7 Chloride (98-107) mmol/L 106 Carbon Dioxide (21.0-32.0) mmol/L 28.5 Anion Gap (3-11) mmol/L 8.5 BUN (7-18) mg/dL 18 Creatinine (0.55-1.02) mg/dL 0.8 Est GFR (CKD-EPI 2020) (mL/min/1.73m2) 70.83 Glucose (74-106) mg/dL 90 Calcium (8.5-10.1) mg/dL 8.4 L Urine Color (Yellow) Yellow Urine Clarity (Clear) Clear Urine pH (5-8) 5.5 Ur Specific Wray (1.005-1.025) 1.010 Urine Protein (Neg-Trace) mg/dL Negative Urine Ketones (Negative) mg/dL Negative Urine Blood (Negative) Negative Urine Nitrite (Negative) Negative Urine Bilirubin (Negative) Negative Urine Urobilinogen (Up to 0.2) mg/dL 0.2 Ur Leukocyte Esterase (Negative) Negative Urine Glucose (Negative) mg/dL Negative Medical Decision Making Emergent evaluation of rash. Initial differential includes cellulitis, intertrigo, candidiasis. I do not suspect Dave's or other necrotizing infection. Lab work reviewed and this is unremarkable. There is no sign of a urinary tract infection. Patient given first dose of Diflucan in the emergency department. Discharged with instructions on skin care as well as medication for treatment. Recommend close follow-up with PCP for evaluation if symptoms are not improving. 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 (Acute) LRF and LMF Bursitis of right shoulder (Acute) Depo-medrol injection: 05/07/23 Arthritis of both hands (Acute) Lymphedema (Acute) Edema (Acute) History of COVID-19 (Acute) Pain of left calf (Acute) Primary osteoarthritis of left knee (Acute) s/p TKA: 07/18/22 Steroid injection: 03/27/2022 Osteoarthritis of knees, bilateral (Chronic) Left knee - Depo-Medrol injection: 03/27/22 Cellulitis (Acute) Chronic diarrhea (Acute) UTI (urinary tract infection) (Acute) Depressive disorder (Chronic 08/26/81) & ANXIETY; SERTRALINE 06/2011; JENNA 10/10/2007 Chest pain (Acute 11/23/11) Herpes zoster (Acute 11/23/11) Knee pain (Acute 03/19/15) Syncope and collapse (Acute 11/23/11) Trigeminal herpes zoster (Acute 04/23/17) 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) Vitamin B deficiency (Chronic 08/26/90) Sleep disturbance, unspecified (Chronic 11/23/11) Osteopenia (Chronic 05/11/15) DEXA 04/2015 Nocturia more than twice per night (Chronic 06/26/17) Knee pain, left (Chronic 07/05/15) 12/2004 x-ray mild spurring; 02/02/17 mod DJD, nafisa lateral component 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 Patient requested a refill of amlodipine, which we sent. She can follow-up routinely for six-month blood pressure checks. Chronic diarrhea (Chronic 03/09/00) GI consult 2002, responded to augmentin 875/125 BID for bacterial overgrowth; failed to respond to Amox 2004 but did in 2007. 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 Bipolar disorder, in full remission, most recent episode mixed (Chronic) per Dr Maya Irby, psychiatry, [place] Arthritis of knee, left (Chronic 03/06/17) pos x-rays, three compartment 01/2017, valgus deformity Medical History (Updated 03/02/25 @ 12:04 by Maryam Ya MD) Depression Benign essential hypertension (08/26/83) Morbid obesity (11/23/11) Hypothyroidism (05/26/87) Hyperlipidemia (11/23/11) Surgical History (Updated 10/16/22 @ 11:39 by LOREE Villeda) History of total left knee replacement (07/18/22) History of left knee replacement History of cataract surgery (05/13/18) H/O left breast biopsy H/O breast biopsy (~09/25/03) H/O colonoscopy (~08/21/00) H/O: hysterectomy (~08/26/70) H/O foot surgery Dr. Palafox, Podiatry 1993 Pacemaker (08/10/98) [facility] FOR RECURRENT SYNCOPE Replaced Dr. Forde 04/03/13 Open Carpal Tunnel release (08/27/79) bilateral CTS surg, [place], [place] & [place] Appendectomy (~195) Family History Mother , (smoker), cause HI at age 72. Myocardial infarct COPD (chronic obstructive pulmonary disease) Alcohol abuse Father , 52 Myocardial infarct Smoker Alcohol abuse Sister , age 80 Diabetes Osteoporosis Arthritis Myocardial infarct Sister , 63, angioplasty, dies of [place] Myocardial infarct Brother , 74, CABG age 58 of lung ca Alcohol abuse Lung cancer Brother , 52 Myocardial infarct Other Hyperlipidemia Social History (Reviewed 10/16/22 @ 09:21 by Natalee Garcia [facility]) Smoking/Tobacco Use Status: Never Smoking risk assessment performed?: Yes Alcohol Intake: former Year quit: 1986 Drug use: Never Substance use type: does not use Adopted: No Foster care: No Housing: house Number of Children: 6 Communication Needs: None current occupation: retired [employer] Pets and animals: No Current gender identity: female Other: support from [employer] pen pals over country, Son Aubrey MuellerRaul What is your relationship status?: Panel score (0-1 are the most socially isolated patients): 0 What type of physical activity do you participate in: none Seatbelt use: always Drive intox or ride w/intox water taxi driver: No Water heater temp set <120 deg: Yes Working smoke detector in home: Yes Fire extinguisher in home: Yes Do you feel safe at home: Yes Do you feel safe in your relationship?: Yes
== END 2025-03-02 13:30 | disposition home or self-care (01) ==
PROVIDERS: Emergency Provider Emergency Medicine; PCP Family Medicine
DX: B37.2 Candidiasis of skin and nail (principal); I10 Essential (primary) hypertension; E78.5 Hyperlipidemia, unspecified; E03.9 Hypothyroidism, unspecified; Z79.82 Long term (current) use of aspirin; Z95.0 Presence of cardiac pacemaker
CPT/HCPCS: 36415; 80048; 96360; 99284; 81003; 85025; J1450

== ENCOUNTER 2025-04-06 04:35 | Outpatient (CLI) | payer MEDICARE, BC, SELFPAY ==
[2025-04-06 13:11] LABS: ESR 25 mm/hr (0-30)
[2025-04-06 13:24] LABS: C-Reactive Protein 3.09 mg/dL (<or=0.5)
[2025-04-07 10:16] LABS: Lyme Ab w Rflx to Lyme Confirm Negative (Negative)
[2025-04-08 14:25] LABS: B. miyamotoi PCR Negative (Negative); Babesia divergens/MO-1 Negative (Negative); Ehrlichia muris eauclairensis Negative (Negative)
== END 2025-04-06 04:36 | disposition home or self-care (01) ==
LOC: LBO 04:35
PROVIDERS: PCP Family Medicine; Visit Provider Family Medicine
DX: M19.90 Unspecified osteoarthritis, unspecified site (principal)
CPT/HCPCS: 36415; 85652; 86200; 87798; 86140; 86618

== ENCOUNTER → 2025-07-01 14:56 | Outpatient (BNVA) | payer MEDICARE, BC, SELFPAY | PROVIDERS: PCP Family Medicine; Visit Provider Internal Medicine Cardiovascular Disease | DX: T82.110A Breakdown (mechanical) of cardiac electrode, initial encounter (principal); Z45.018 Encounter for adjustment and management of other part of cardiac pacemaker | CPT/HCPCS: 93280 ==